=== PATIENT | female | born 1935 | race Caucasian/White ===

== ENCOUNTER → 2017-02-17 | Outpatient (CLI) | payer OTHER ==
[~2017-02-17] MED LIST: ASPI81TA28 PO; CALC600C9 PO; CEPH500C2 PO; CLTP PO; DOCU-94 PO; FLUT0.15 NAE; FRS/40 PO; GLIP5TAB11 PO; LACTTAB7 PO; LISI-729 PO; LOSA1TAB PO; LPR25 PO; MISCCAP80 PO; MUPI2OIN9 TOP; PRLSR20 PO; SIMV40TA2 PO; SULF800T23 PO; TRIM100T PO; VSC/10 PO; [UNRECOGNIZED DRUG - CODE] PO
== END | disposition home or self-care (01) ==
LOC: C.LABSPEC 17:06
PROVIDERS: ATTEND Nurse Practitioner Family
DX: N39.0 Urinary tract infection, site not specified (principal)

== ENCOUNTER 2017-04-21 15:44 | Emergency (ER) | payer OTHER ==
[~2017-04-21 15:44] MED LIST changes: -CALC600C9 PO; -CEPH500C2 PO; -DOCU-94 PO; -FLUT0.15 NAE; -GLIP5TAB11 PO; -LOSA1TAB PO; -LPR25 PO; -MUPI2OIN9 TOP; -SULF800T23 PO; -VSC/10 PO
[2017-04-21 15:46] VITALS: Ht 165.1 cm
[2017-04-21] MEDS ORDERED: VSC/10 PO (15:58)
[2017-04-21] MEDS ORDERED: GLIP5TAB11 PO (16:00)
[2017-04-21] MEDS ORDERED: LPR25 PO (16:04)
--- NOTE | 2017-04-21 16:14 | EMERGENCY ROOM VISIT NOTE ---
History Report prepared by Soni: Juan Sheehan Under the Supervision of: Dr. Aston Morales D.O. First contact with patient: 15:51 Chief Complaint: EDEMA TO EXTREMITY Stated Complaint: SWELLING TO LEFT FOOT History of Present Illness The patient is a 81 year old female who presents to the Emergency Room with complaints of worsening left foot swelling beginning yesterday. She is followed up for her wounds by the wound clinic. She denies any foot pain, or drainage. The patient denies any fevers. She has a history of diabetes, and high blood pressure. She is on Coumadin. The patient noticed a small wound forming on her left foot yesterday as well. Source of History: patient Onset: Yesterday Position: foot (left) Quality: other (swelling) Timing: worsening Associated Symptoms: No fevers Note: The patient denies any foot pain or draining. Review of Systems See HPI for pertinent positives & negatives. A total of 10 systems reviewed and were otherwise negative. Past Medical & Surgical Medical Problems: (1) Benign hypertension (2) Chronic congestive heart failure (3) Coronary artery disease (4) diabetes (5) Hyperlipidemia (6) Hysterectomy Family History Cancer Diabetes mellitus Heart disease Hypertension Social History Smoking Status: Never Smoker Drug Use: none Marital Status: Housing Status: lives alone Occupation Status: retired Current/Historical Medications Scheduled Aspirin (Aspirin Ec), 81 MG PO QAM Calcium Carbonate-Vitamin D (Calcium/Vitamin D 600-200 mg-Unit), 2 CAP PO DAILY Cephalexin Monohydrate (Keflex), 500 MG PO QID Docusate Sodium (Colace), 100 MG PO BID Glipizide (Glucotrol), 5 MG PO BID Losartan Potassium (Cozaar), 12.5 MG PO DAILY Metoprolol Tartrate (Lopressor), 25 MG PO BID Mupirocin (Bactroban), 1 APPLN TOP TID Omeprazole (Prilosec), 20 MG PO QAM Simvastatin (Zocor), 40 MG PO HS Solifenacin Succinate (Vesicare), 10 MG PO DAILY Sulfa/Trimethoprim (Bactrim Ds 800MG/160MG), 1 TAB PO BID Trimethoprim (Proloprim), 100 MG PO DAILY Scheduled PRN Fluticasone Propionate (Nasal) (Flonase Allergy Relief), 2 SPRAYS NANCI DAILY PRN for Allergy Symptoms Furosemide (Lasix), 20 MG PO DAILY PRN for Fluid Accumulation/Weight Gain Allergies Coded Allergies: No Known Allergies (Unverified , 09/05/15) Physical Exam Vital Signs Date Time Temp Pulse Resp B/P (MAP) Pulse Ox O2 Delivery O2 Flow Rate FiO2 04/21/17 18:52 66 20 159/96 95 Room Air 04/21/17 17:32 71 18 175/77 97 04/21/17 15:46 68 16 148/78 96 Room Air Physical Exam GENERAL: Patient is awake, alert, and in no acute distress. Patient is resting comfortably and showing no signs of anxiety EYES: The conjunctivae are clear. The pupils are round and reactive. EARS, NOSE, MOUTH AND THROAT: The nose is without any evidence of any deformity. Mucous membranes are moist tongue is midline NECK: The neck is nontender and supple. RESPIRATORY: Normal respiratory effort is noted there is no evidence of wheezing rhonchi or rales CARDIOVASCULAR: Regular rate and rhythm noted there no murmurs rubs or gallops normal S1 normal S2 GASTROINTESTINAL: The abdomen is soft. Bowel sounds are present in all quadrants. Abdomen is nontender PELVIS: The Pelvis is stable. No tenderness to palpation is noted. BACK: No midline tenderness or or step-off noted range of motion in flexion extension as well as rotation no signs of muscle spasm noted MUSCULOSKELETAL/EXTREMITIES: There is no evidence of gross deformity full range of motion is noted in the hips and shoulders SKIN: There are no petechiae, pallor or cyanosis noted. Lesion on the lateral aspect of the dorsum of the left foot. Center is necrotic. Surrounding erythema approximately 3 cm in diameter. NEUROLOGIC: Patient is awake alert and oriented x3 strength is symmetric patellar reflexes are 2+ bilaterally Medical Decision & Procedures ER Provider Diagnostic Interpretation: X-ray results as stated below per interpretation by me and the radiologist. LEFT FOOT MIN 3 VIEWS ROUTINE DISCUSSION: No acute fractures are visualized. The bones are osteopenic. There is calcaneal spurring. There is mild soft tissue edema. No destructive lesions are visualized. IMPRESSION: No acute fractures identified. Osteopenia. Calcaneal spurring. Electronically signed by: Vasu Colón M.D. Laboratory Results 04/21/17 16:05 Red Blood Count 4.46, Mean Corpuscular Volume 88.6, Mean Corpuscular Hemoglobin 29.6, Mean Corpuscular Hemoglobin Concent 33.4, Mean Platelet Volume 10.0, Neutrophils (%) (Auto) 48.7, Lymphocytes (%) (Auto) 40.2, Monocytes (%) (Auto) 8.5, Eosinophils (%) (Auto) 1.8, Basophils (%) (Auto) 0.4, Neutrophils # (Auto) 5.56, Lymphocytes # (Auto) 4.59, Monocytes # (Auto) 0.97, Eosinophils # (Auto) 0.21, Basophils # (Auto) 0.05 04/21/17 16:05 Test 04/21/17 16:05 04/21/17 17:26 White Blood Count 11.42 K/uL (4.8-10.8) Red Blood Count 4.46 M/uL (4.2-5.4) Hemoglobin 13.2 g/dL (12.0-16.0) Hematocrit 39.5 % (37-47) Mean Corpuscular Volume 88.6 fL (80-100) Mean Corpuscular Hemoglobin 29.6 pg (25-34) Mean Corpuscular Hemoglobin Concent 33.4 g/dl (32-36) Platelet Count 122 K/uL (130-400) Mean Platelet Volume 10.0 fL (7.4-10.4) Neutrophils (%) (Auto) 48.7 % Lymphocytes (%) (Auto) 40.2 % Monocytes (%) (Auto) 8.5 % Eosinophils (%) (Auto) 1.8 % Basophils (%) (Auto) 0.4 % Neutrophils # (Auto) 5.56 K/uL (1.4-6.5) Lymphocytes # (Auto) 4.59 K/uL (1.2-3.4) Monocytes # (Auto) 0.97 K/uL (0.11-0.59) Eosinophils # (Auto) 0.21 K/uL (0-0.5) Basophils # (Auto) 0.05 K/uL (0-0.2) RDW Standard Deviation 46.4 fL (36.4-46.3) RDW Coefficient of Variation 14.2 % (11.5-14.5) Immature Granulocyte % (Auto) 0.4 % Immature Granulocyte # (Auto) 0.04 K/uL (0.00-0.02) Erythrocyte Sedimentation Rate 21 mm/hr (0-21) Prothrombin Time 10.4 SECONDS (9.0-12.0) Prothromb Time International Ratio 1.0 (0.9-1.1) Activated Partial Thromboplast Time 27.1 SECONDS (21.0-31.0) Partial Thromboplastin Ratio 1.0 Anion Gap 9.0 mmol/L (3-11) Estimated GFR () 62.7 Estimated GFR (Non- 54.1 BUN/Creatinine Ratio 24.0 (10-20) Calcium Level 8.8 mg/dl (8.5-10.1) Total Bilirubin 0.7 mg/dl (0.2-1) Direct Bilirubin 0.1 mg/dl (0-0.2) Aspartate Amino Transf (AST/SGOT) 15 U/L (15-37) Alanine Aminotransferase (ALT/SGPT) 17 U/L (12-78) Alkaline Phosphatase 96 U/L (45-117) C-Reactive Protein 0.61 mg/dl (0-0.29) Total Protein 7.8 gm/dl (6.4-8.2) Albumin 3.6 gm/dl (3.4-5.0) Lipase 93 U/L (73-393) Lyme Disease IgG Antibody NEG (NEG) Lyme Disease IgM Antibody NEG (NEG) Laboratory results per my review. Medications Administered Medications (Trade) Dose Ordered Sig/Aziza Route Start Time Stop Time Status Last Admin Dose Admin Ceftriaxone Sodium (Rocephin Inj) 1 gm NOW STAT IV 04/21/17 16:49 04/21/17 16:50 DC 04/21/17 17:31 1 GM ED Course 1554: The patient was evaluated in room B9. A complete history and physical examination were performed. 164: Ordered Rocephin Inj 1 gm IV. 0: Upon reevaluation, the patient is resting comfortably. I discussed the results and treatment plan with her. She verbalized agreement of the treatment plan. The patient was discharged home. Medical Decision Differential diagnosis: Etiologies such as cellulitis, abscess, MRSA infection, DVT, necrotizing fasciitis, dermatitis, drug eruption, as well as others were entertained. Blood pressure screening: Patient was found to have an elevated blood pressure and was referred to their primary doctor for recheck and further treatment. Medication Reconciliation: I attest that I have personally reviewed the patient' s current medications list. The patient is an 81-year-old female who presented to the emergency department for evaluation of left foot pain and swelling. The patient had an area of erythema as well as central necrosis on her left foot which she noticed recently. The area had the appearance of an infection. There is no definite foreign body noted on x-ray. The patient was treated with IV antibiotics in the emergency department. I discussed the patient's laboratory and radiographic studies with her. She was encouraged to follow-up with her primary care physician this week for reevaluation. She also has had problems with infections in her extremities in the past and was seen at the wound care center. She was encouraged to follow-up with wound care center symptoms do not improve but also return to the emergency apartment immediately if symptoms change worsen or the need arises. Impression Primary Impression: Cellulitis Scribe Attestation The scribe's documentation has been prepared under my direction and personally reviewed by me in its entirety. I confirm that the note above accurately reflects all work, treatment, procedures, and medical decision making performed by me. Departure Information Dispostion Home / Self-Care Prescriptions Mupirocin (BACTROBAN) 2 % Oin 1 APPLN TOP TID, #60 GM Prov: Aston Morales, DO 04/21/17 Cephalexin Monohydrate (KEFLEX) 500 Mg Cap 500 MG PO QID, #40 CAP Prov: Aston Morales, DO 04/21/17 Sulfa/Trimethoprim (Bactrim Ds 800MG/160MG) Tab 1 TAB PO BID, #20 TAB Prov: Aston Morales, DO 04/21/17 Referrals No Doctor, Assigned (PCP) Forms HOME CARE DOCUMENTATION FORM, IMPORTANT VISIT INFORMATION, WORK / SCHOOL INSTRUCTIONS Patient Instructions Cellulitis [place], [facility] Additional Instructions Follow-up with your primary care physician this week for reevaluation. If symptoms are not improving you may require a referral to the wound care center. Continue all medications as prescribed. Problem Qualifiers Primary Impression: Cellulitis Site of cellulitis: extremity Site of cellulitis of extremity: lower extremity Laterality: left Qualified Codes: L03.116 - Cellulitis of left lower limb
[2017-04-21 16:17] LABS: BASO % 0.4 %; BASO ABS # 0.05 K/uL (0-0.2); COMPLETE YES; EOS % 1.8 %; HEMATOCRIT 39.5 % (37-47); IG% 0.4 %; LYMPH % 40.2 %; LYMPH ABS # 4.59 K/uL (1.2-3.4); MEAN CELL VOLUME 88.6 fL (80-100); MEAN CORPUSCULAR HEMOGLOBIN 29.6 pg (25-34); MEAN CORPUSCULAR HGB CONC 33.4 g/dl (32-36); MONO % 8.5 %; NEUT % 48.7 %; PLATELET COUNT 122 K/uL (130-400); RED BLOOD COUNT 4.46 M/uL (4.2-5.4); WHITE BLOOD COUNT 11.42 K/uL (4.8-10.8)
[2017-04-21 16:30] LABS: PROTHROMBIN TIME (PATIENT) 10.4 SECONDS (9.0-12.0)
[2017-04-21] MEDS ORDERED: LOSA1TAB PO (16:31)
[2017-04-21] MEDS ORDERED: CALC600C9 PO (16:31)
--- NOTE | 2017-04-21 16:34 | DIAGNOSTIC IMAGING REPORT ---
LEFT FOOT MIN 3 VIEWS ROUTINE CLINICAL HISTORY: Swelling and erythema COMPARISON: None. DISCUSSION: No acute fractures are visualized. The bones are osteopenic. There is calcaneal spurring. There is mild soft tissue edema. No destructive lesions are visualized. IMPRESSION: No acute fractures identified. Osteopenia. Calcaneal spurring. Electronically signed by: Vasu Colón M.D. 04/21/2017 4:33 PM Dictated Date/Time: 04/21/2017 4:29 PM
[2017-04-21 16:42] LABS: ALT/SGPT 17 U/L (12-78); AST/SGOT 15 U/L (15-37); BLOOD UREA NITROGEN 24 mg/dl (7-18); C-REACTIVE PROTEIN 0.61 mg/dl (0-0.29); CALCIUM 8.8 mg/dl (8.5-10.1); CARBON DIOXIDE 25 mmol/L (21-32); CHLORIDE 107 mmol/L (98-107); CREATININE 0.98 mg/dl (0.60-1.20); GLUCOSE 160 mg/dl (70-99); POTASSIUM 4.5 mmol/L (3.5-5.1); SODIUM 141 mmol/L (136-145)
[2017-04-21 16:43] LABS: ALKALINE PHOSPHATASE 96 U/L (45-117)
[2017-04-21] MEDS ORDERED: CEFTRIAXONE SOD INJ 1 GM ADDVIAL IV STA (16:49)
[2017-04-21] MEDS ORDERED: DOCU-94 PO (17:10)
[2017-04-21] MEDS ORDERED: FLUT0.15 NAE (17:10)
[2017-04-21 18:35] LABS: LYME DISEASE AB IGG NEG (NEG); LYME DISEASE AB IGM NEG (NEG)
[2017-04-21] MEDS ORDERED: SULF800T23 PO (18:37)
[2017-04-21] MEDS ORDERED: MUPI2OIN9 TOP (18:37)
[2017-04-21] MEDS ORDERED: CEPH500C2 PO (18:37)
[2017-04-21 18:52] VITALS: BP 159/96; PULSE 66; O2SAT 95
== END 2017-04-21 18:53 | disposition home or self-care (01) ==
LOC: C.EDB 15:45
DX: L03.116 Cellulitis of left lower limb (principal); E11.9 Type 2 diabetes mellitus without complications; I10 Essential (primary) hypertension; I50.9 Heart failure, unspecified; I25.10 Atherosclerotic heart disease of native coronary artery without angina pectoris; E78.5 Hyperlipidemia, unspecified; Z80.9 Family history of malignant neoplasm, unspecified; Z83.3 Family history of diabetes mellitus; Z82.49 Family history of ischemic heart disease and other diseases of the circulatory system; Z79.01 Long term (current) use of anticoagulants; Z79.82 Long term (current) use of aspirin; Z79.899 Other long term (current) drug therapy

== ENCOUNTER → 2017-10-07 | Outpatient (CLI) | payer OTHER ==
[~2017-10-07] MED LIST changes: +CALC600C9 PO; +CEPH500C2 PO; -CLTP PO; +DOCU-94 PO; +FLUT0.15 NAE; +GLIP5TAB11 PO; -LACTTAB7 PO; -LISI-729 PO; +LOSA1TAB PO; +LPR25 PO; -MISCCAP80 PO; +MUPI2OIN9 TOP; +SULF800T23 PO; +VSC/10 PO; -[UNRECOGNIZED DRUG - CODE] PO
== END | disposition home or self-care (01) ==
LOC: C.LABSPEC 16:53
PROVIDERS: ATTEND Urology
DX: N39.46 Mixed incontinence (principal)

== ENCOUNTER 2019-10-19 23:31 | Inpatient (IN) ==
[2019-10-19 23:49] LABS: Basophils # (auto) 0.02 K/uL (0-0.2); Basophils % (auto) 0.2 %; Eosinophils # (auto) 0.11 K/uL (0-0.5); Hematocrit (blood only) 41.2 % (37-47); Hemoglobin 13.5 g/dL (12.0-16.0); Immature Granulocytes # (auto) 0.02 K/uL (0.00-0.02); Immature Granulocytes % (auto) 0.2 %; Lymphocytes # (auto) 2.56 K/uL (1.2-3.4); Lymphocytes % (auto) 22.9 %; Mean Corpuscular Hemoglobin 29.9 pg (25-34); Mean Corpuscular Hgb Conc 32.8 g/dL (32-36); Mean Corpuscular Volume 91.2 fL (80-100); Mean Platelet Volume 10.2 fL (7.4-10.4); Monocytes # (auto) 0.81 K/uL (0.11-0.59); Monocytes % (auto) 7.3 %; Neutrophils # (auto) 7.64 K/uL (1.4-6.5); Neutrophils % (auto) 68.4 %; Platelet Count 156 K/uL (130-400); RDW Coefficient of Variation 14.9 % (11.5-14.5); RDW Standard Deviation 49.7 fL (36.4-46.3); Red Blood Count 4.52 M/uL (4.2-5.4); White Blood Count 11.16 K/uL (4.8-10.8)
[2019-10-19] MEDS ORDERED: OPTIRAY 320 125ml IV PRN (23:50)
[2019-10-19 23:55] LABS: iSTAT Creatinine 0.7 mg/dl (0.6-1.3); iSTAT Hemoglobin 14.3 g/dl (12.0-16.0); iSTAT Ionized Calcium 1.15 mmol/l (1.12-1.32); iSTAT Potassium 4.2 mEq/L (3.3-5.0)
[2019-10-19] MEDS ORDERED: TPA for Stroke IV STA (23:58)
[2019-10-19 23:59] LABS: INR 1.2 (0.9-1.1); Partial Thromboplastin Time 26.3 Seconds (21.0-31.0); Prothrombin Time 11.8 Seconds (9.0-12.0)
[2019-10-20] MEDS ORDERED: METOPROLOL TARTRATE 1 MG/ML VIAL IV STA ×3 (00:01→03:56)
[2019-10-20 00:08] LABS: Alanine Aminotransferase 17 U/L (12-78); Albumin Level 3.9 gm/dl (3.4-5.0); Aspartate Aminotransferase 23 U/L (15-37); BUN Creatinine Ratio 14.4 (10-20); Blood Urea Nitrogen 14 mg/dl (7-18); Calcium 9.8 mg/dl (8.5-10.1); Carbon Dioxide 23 mmol/L (21-32); Chloride 106 mmol/L (98-107); Creatinine Clr Calc Pharmacy 53.3 ml/min; Est GFR (African American) 64.6; Est GFR (Non-African American) 55.7; Glucose 182 mg/dl (70-99); Magnesium 2.1 mg/dl (1.8-2.4); Potassium 4.2 mmol/L (3.5-5.1); Sodium 138 mmol/L (136-145)
[2019-10-20] MEDS ORDERED: Alteplase Bolus 9 MG in SYRINGE 0 ML IV ONE (00:09)
[2019-10-20] MEDS ORDERED: ALTEPLASE, RECOMBINANT 81 MG in EMPTY BAG 0 ML IV ONE (00:10)
[2019-10-20] MEDS ORDERED: PRIMARY PLUMSET, PE LINED TUBING, 113 IN, NON-DEHP (2260-0500) IV ONE (00:10)
[2019-10-20 00:13] LABS: Albumin Globulin Ratio 0.9 (0.9-2); Alkaline Phosphatase 74 U/L (45-117); Bilirubin,Total 1.3 mg/dl (0.2-1); Globulin 4.2 gm/dl (2.5-4.0); Total Protein 8.1 gm/dl (6.4-8.2); Troponin I < 0.015 ng/ml (0-0.045)
--- NOTE | 2019-10-20 02:16 | History & Physical Report ---
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 Patient admitted to the ICU under the stroke status post TPA within 24 hours protocol. Immediately post administration, patient was not noted to have any significant improvement, and continued with right gaze preference, and inability to move left side of body. NPO Consult neurology. Consult director corporate security. Overall poor prognosis Present on Admission?: Yes (2) Stroke (cerebrum): As noted above, involving right MCA M1 subdivision, with significant left- sided deficit Present on Admission?: Yes (3) Paroxysmal A-fib: Patient was initially noted by ED staff to be in paroxysmal A. fib with RVR, however, returned more rate control by time of transfer. Not an anticoagulation candidate due to use of TPA. Lopressor IV as needed for rate control. Present on Admission?: Yes (4) Type 2 diabetes mellitus: Holding glipizide. Placed on Accu-Cheks before meals and at bedtime with NovoLog coverage for scale Present on Admission?: Yes (5) Hyperlipidemia: Check a fasting lipid panel, holding any statin until patient passes speech studies Present on Admission?: Yes (6) Recurrent urinary tract infection: Previous infections including ESBL E. coli, and enterococcus. Urinalysis looks infected. Follow urine culture sensitivity. Cover empirically with vancomycin and Zosyn IV. Present on Admission?: Yes (7) Infection due to ESBL-producing Escherichia coli: Antibiotic coverage as noted until culture and sensitivities return Present on Admission?: Yes (8) Ambulatory dysfunction: Patient was noted to have ambulatory dysfunction prior to acute onset of CVA. Present on Admission?: Yes (9) Admitted to intensive care unit: As noted above, with consult director corporate security team Present on Admission?: Yes (10) Status post aortic valve replacement: Echocardiogram to assess for any associated SBE Present on Admission?: Yes History of Present Illness Chief Complaint: The patient presents to the emergency department from [facility], with strokelike symptoms. Primary Care Provider: [facility] The patient is an 84-year-old female resident of [facility], who was found to be less responsive, and decreased ability to move the left side of her body when checked on by half-way staff earlier this evening. Her last known well time was 8:00 PM. She was placed into the stroke alert protocol upon arrival to the ED. CT the head showed old ischemia but no acute findings. CTA head and neck showed a right MCA M1 occlusion. Dr. Drew from the emergency department, spoke with Dr. Lundberg from neurology, who recommended patient receive TPA, and TPA was administered completely while in the ED. Patient was noted to have no significant improvement upon immediate completion of the TPA, and also had no ill effects. The patient was then admitted to the ICU for close follow-up. Allergies Allergy/AdvReac Type Severity Reaction Status Date / Time No Known Allergies Allergy Unverified 10/20/19 00:15 Home Medications Home Medications Medication Instructions Recorded Confirmed Type amoxicillin 2,000 mg PO DIRECTED 09/27/18 10/20/19 History glipizide 5 mg PO BID 09/27/18 10/19/19 History losartan 12.5 mg PO DAILY 09/27/18 10/19/19 History metoprolol tartrate 25 mg PO BID 09/27/18 10/20/19 History polyethylene glycol 3350 [Miralax] 17 g PO DAILY PRN 10/19/19 10/19/19 History Cavilon Af 1 applic TOPICAL AMHS 10/20/19 10/20/19 History acetaminophen 650 mg PO DAILY 10/20/19 10/20/19 History acetaminophen 650 mg PO Q6H PRN 10/20/19 10/20/19 History acetaminophen 650 mg PO Q6H PRN MDD 3g/24hr 10/20/19 10/20/19 History wtszzgcx-skbelefjuks-opjuw, wh 1 applic TOPICAL HS 10/20/19 10/20/19 History [Moisturizing Cream] lanolin fiqppih-ki-x.pet-ceres 1 applic TOPICAL AMPM 10/20/19 10/20/19 History [Eucerin] menthol-zinc oxide [Calmoseptine] 1 applic TOPICAL QS 10/20/19 10/20/19 History zpdjryvfescq-Nm-ryvf-minerals 1 tab PO DAILY 10/20/19 10/20/19 History [Multiple Vitamin, Womens] omeprazole 20 mg PO DAILY 10/20/19 10/20/19 History ondansetron HCl 4 mg PO Q8 PRN 10/20/19 10/20/19 History Past Med/Surg History Medical History (Updated 10/20/19 @ 03:45 by MADDISON Price) Hyperlipidemia (Chronic) Hypertension (Chronic) Osteoporosis (Chronic) Paroxysmal A-fib (Chronic) Recurrent urinary tract infection (Chronic) Rheumatic valvular disease (Chronic) Stroke (cerebrum) Type 2 diabetes mellitus (Chronic) Surgical History Status post aortic valve replacement (Chronic) Family History Other Family history unknown Social History Preferred Language: Greenlandic Communication Ability: Effective Visual Impairment: No Limitations Hearing Ability: Normal Switchman Required: No Beliefs That Will Affect Care: None Current Living Situation: Assisted Other Information That Helps Us Care for You: No Feels Safe at Home: Yes Safety Concerns: Feels Safe At This Time Smoking Status: Never smoker Hx Alcohol Use: No Hx Substance Use: No Review of Systems Review of Systems: Unobtainable due to cognitive status and Unobtainable due to reduced consciousness Physical Exam Physical Exam: The patient is awake, with gaze deviation to the right, lying in bed and in no acute distress. HEENT--PERRL, EOMI, mucous membranes and oropharynx dry. Neck--supple. No JVD. No bruits. Thyroid normal, trachea midline, no adenopathy. Heart--tachycardic and regular. Lungs--clear bilaterally, no respiratory distress, no accessory muscle use. Abdomen--normal bowel sounds and soft. Nontender. Nondistended. Extremities--no cyanosis or clubbing. No edema. There are good distal pulses b/l. Dermatologic--normal skin turgor, normal color, no abnormal lymph nodes, no rash. Neurologic--gaze deviation to the right. Patient unable to move left arm and left leg. Right leg 4+ out of 5, right upper extremity 4+ out of 5 Rheumatologic--limited exam due to neurologic injury Psychiatric--patient able to respond, with flat affect. Results & Data Vital Signs (Past 12 Hours) Vital Signs Pulse Resp BP Pulse Ox 10/20/19 02:01 110 H 108/80 94 10/20/19 02:00 103 H 94 10/20/19 01:50 122 H 94 10/20/19 01:45 104 H 131/93 93 10/20/19 01:40 110 H 131/93 95 10/20/19 01:31 99 H 122/89 93 10/20/19 01:30 95 H 122/89 92 10/20/19 01:20 109 H 93 10/20/19 01:17 109 H 93 10/20/19 01:16 98 H 112/75 96 10/20/19 01:10 100 H 94 10/20/19 01:01 99 H 123/87 94 10/20/19 01:00 111 H 123/87 92 10/20/19 00:50 97 H 93 10/20/19 00:47 105 H 94 10/20/19 00:46 114 H 140/88 94 10/20/19 00:40 101 H 95 10/20/19 00:32 101 H 93 10/20/19 00:31 99 H 126/84 93 10/20/19 00:30 102 H 93 10/20/19 00:20 117 H 94 10/20/19 00:16 115 H 129/85 95 10/20/19 00:10 104 H 93 10/20/19 00:07 110 H 141/72 H 94 10/20/19 00:04 121 H 152/117 H 96 10/20/19 00:03 115 H 169/100 H 96 10/20/19 00:00 127 H 96 10/19/19 23:59 123 H 96 10/19/19 23:58 106 H 178/145 H 96 10/19/19 23:57 102 H 20 95 Laboratory Results Laboratory Results WBC 11.16 K/uL (4.8-10.8) H 10/19/19 23:38 RBC 4.52 M/uL (4.2-5.4) 10/19/19 23:38 Hgb 13.5 g/dL (12.0-16.0) 10/19/19 23:38 POC Hgb 14.3 g/dl (12.0-16.0) 10/19/19 23:39 Hct 41.2 % (37-47) 10/19/19 23:38 POC Hct 42 % (37-47) 10/19/19 23:39 MCV 91.2 fL (80-100) 10/19/19 23:38 MCH 29.9 pg (25-34) 10/19/19 23:38 MCHC 32.8 g/dL (32-36) 10/19/19 23:38 RDW Std Deviation 49.7 fL (36.4-46.3) H 10/19/19 23:38 RDW Coeff of Stanford 14.9 % (11.5-14.5) H 10/19/19 23:38 Plt Count 156 K/uL (130-400) 10/19/19 23:38 MPV 10.2 fL (7.4-10.4) 10/19/19 23:38 Immature Gran % (Auto) 0.2 % 10/19/19 23:38 Neut % (Auto) 68.4 % 10/19/19 23:38 Lymph % (Auto) 22.9 % 10/19/19 23:38 Bradford % (Auto) 7.3 % 10/19/19 23:38 Eos % (Auto) 1.0 % 10/19/19 23:38 Baso % (Auto) 0.2 % 10/19/19 23:38 Immature Gran # (Auto) 0.02 K/uL (0.00-0.02) 10/19/19 23:38 Neut # (Auto) 7.64 K/uL (1.4-6.5) H 10/19/19 23:38 Lymph # (Auto) 2.56 K/uL (1.2-3.4) 10/19/19 23:38 Bradford # (Auto) 0.81 K/uL (0.11-0.59) H 10/19/19 23:38 Eos # (Auto) 0.11 K/uL (0-0.5) 10/19/19 23:38 Baso # (Auto) 0.02 K/uL (0-0.2) 10/19/19 23:38 PT 11.8 Seconds (9.0-12.0) 10/19/19 23:38 INR 1.2 (0.9-1.1) H 10/19/19 23:38 APTT 26.3 Seconds (21.0-31.0) 10/19/19 23:38 PTT Ratio 1.0 10/19/19 23:38 POC Sodium 140 mEq/L (135-144) 10/19/19 23:39 Sodium 138 mmol/L (136-145) 10/19/19 23:38 POC Potassium 4.2 mEq/L (3.3-5.0) 10/19/19 23:39 Potassium 4.2 mmol/L (3.5-5.1) 10/19/19 23:38 POC Chloride 105 mEq/L (101-112) 10/19/19 23:39 Chloride 106 mmol/L (98-107) 10/19/19 23:38 Carbon Dioxide 23 mmol/L (21-32) 10/19/19 23:38 POC Total CO2 23 mEq/l (24-31) L 10/19/19 23:39 Anion Gap 9.0 (3-11) 10/19/19 23:38 POC Anion Gap 16.0 mmol/L (16-25) 10/19/19 23:39 POC BUN 13 mg/dl (7-18) 10/19/19 23:39 BUN 14 mg/dl (7-18) 10/19/19 23:38 Creatinine 0.94 mg/dl (0.6-1.2) 10/19/19 23:38 POC Creatinine 0.7 mg/dl (0.6-1.3) 10/19/19 23:39 Est Cr Clr Drug Dosing 53.3 ml/min 10/19/19 23:38 Est GFR ( Amer) 64.6 10/19/19 23:38 Est GFR (Non-Af Amer) 55.7 10/19/19 23:38 BUN/Creatinine Ratio 14.4 (10-20) 10/19/19 23:38 Glucose 182 mg/dl (70-99) H 10/19/19 23:38 POC Glucose 168 (70-99) H 10/19/19 23:58 POC Glucose (other) 185 mg/dl (70-99) H 10/19/19 23:39 Calcium 9.8 mg/dl (8.5-10.1) 10/19/19 23:38 POC Ioniz Calcium Julio Cesar 1.15 mmol/l (1.12-1.32) 10/19/19 23:39 Magnesium 2.1 mg/dl (1.8-2.4) 10/19/19 23:38 Total Bilirubin 1.3 mg/dl (0.2-1) H 10/19/19 23:38 AST 23 U/L (15-37) 10/19/19 23:38 ALT 17 U/L (12-78) 10/19/19 23:38 Alkaline Phosphatase 74 U/L (45-117) 10/19/19 23:38 Troponin I < 0.015 ng/ml (0-0.045) 10/20/19 03:20 Total Protein 8.1 gm/dl (6.4-8.2) 10/19/19 23:38 Albumin 3.9 gm/dl (3.4-5.0) 10/19/19 23:38 Globulin 4.2 gm/dl (2.5-4.0) H 10/19/19 23:38 Albumin/Globulin Ratio 0.9 (0.9-2) 10/19/19 23:38 Triglycerides 68 mg/dl (0-150) 10/20/19 03:20 Cholesterol 81 mg/dl (0-200) 10/20/19 03:20 LDL Cholesterol, Calc 20 mg/dl 10/20/19 03:20 VLDL Cholesterol, Calc 14 mg/dl 10/20/19 03:20 HDL Cholesterol 47 mg/dl 10/20/19 03:20 Cholesterol/HDL Ratio 2 10/20/19 03:20 Procalcitonin < 0.05 ng/ml (0-0.5) 10/20/19 03:20 TSH 1.790 uIu/ml (0.300-4.500) 10/20/19 03:20 Nasal Screen MRSA (PCR) Positive (Negative) A 10/20/19 02:30 Blood Type O Positive 10/19/19 23:38 Antibody Screen NEGATIVE 10/19/19 23:38 Diagnostic Findings [facility] Patient: JANINA RAMSEY (Female) : 35 test: [id number] Status: ER Date: 10/19/19 23:57 Room #: History: LEFT SIDE WEAKNESS Slices: 67 Priors: Tech: Ramesh Quesada @ [phone] Exams: CT HEAD Accession Numbers: [id number] Preliminary Findings Only See Final Report For Complete Findings CT HEAD: Impression: No intracranial hemorrhage. Global parenchymal volume loss with extensive chronic microvascular ischemic changes which degrades evaluation for early CT change of acute infarction. No mass lesion or mass effect. Radiologist: Ashok Jaimes MD Study ready at 23:59 and initial results transmitted at 00:03 Communications: Clear Time Type Notes 10/20/19 00:05 Call Doctor Regarding Stroke, called Dr. Drew on 10/20 00:04 (-05:00) *This report constitutes a preliminary interpretation only. Non-acute findings felt to be unrelated to the clinical presentation may not be discussed in this report. The study will be interpreted and a final report will be generated by the local Radiologist the following shift. To reach the hospital radiology department call [phone]. If a discrepancy is found between the preliminary and final interpretations of this study, please notify us via our Client Portal at [email or web address], under [email or web address] Exams.You can also fax this report with a description of the discrepancy, or include the final report, to our daytime fax number [phone].If faxing, please indicate the severity of discrepancy using one of the following categories: [ ] 1 - Agree/Informational [ ] 2 - Unlikely to Affect Management [ ] 3 - Possible Eventual Change of Management [ ] 4 - Probable Immediate Change of Management For all other patient related information, please fax us at [phone]. [id number] [facility] Patient: JANINA RAMSEY (Female) : 35 test: [id number] Status: ER Date: 10/19/19 23:58 Room #: History: LEFT SIDE WEAKNESS Slices: 505 Priors: Tech: Ramesh Quesada @ [phone] Exams: CTA HEAD Contrast: IV Amt: 117 ML OPTIRAY 320 Accession Numbers: [id number] Preliminary Findings Only See Final Report For Complete Findings CTA HEAD: Impression: Thrombus in the M1 segment of the right middle cerebral artery measuring approximately 9 mm. 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 The left vertebral artery and basilar artery are widely patent. Radiologist: Ashok Jaimse MD Study ready at 23:59 and initial results transmitted at 00:07 Communications: Clear Time Type Notes 10/20/19 00:08 Call Doctor Regarding Critical stenosis/arterial occlusion, called Dr. Drew on 10/20 00:08 (-05:00) *This report constitutes a preliminary interpretation only. Non-acute findings felt to be unrelated to the clinical presentation may not be discussed in this report. The study will be interpreted and a final report will be generated by the local Radiologist the following shift. To reach the hospital radiology department call [phone]. If a discrepancy is found between the preliminary and final interpretations of this study, please notify us via our Client Portal at [email or web address], under [email or web address] [email or web address].You can also fax this report with a description of the discrepancy, or include the final report, to our daytime fax number [phone].If faxing, please indicate the severity of discrepancy using one of the following categories: [ ] 1 - Agree/Informational [ ] 2 - Unlikely to Affect Management [ ] 3 - Possible Eventual Change of Management [ ] 4 - Probable Immediate Change of Management For all other patient related information, please fax us at [phone]. [id number] [facility] Patient: JANINA RAMSEY (Female) : 35 test: [id number] Status: ER Date: 10/20/19 00:00 Room #: History: LEFT SIDE WEAKNESS Slices: 629 Priors: Tech: Ramesh Quesada @ [phone] Exams: CTA NECK Contrast: IV Amt: 117 ML OPTIRAY 320 Accession Numbers: [id number] Preliminary Findings Only See Final Report For Complete Findings CTA NECK: Impression: No hemodynamically significant stenosis of the cervical carotid or vertebral arteries. 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 Radiologist: Ashok Jaimes MD Study ready at 00:06 and initial results transmitted at 00:09 Communications: Clear Time Type Notes 10/20/19 00:10 Call Doctor Regarding Stroke, called Dr. Drew on 10/20 00:10 (-05:00) *This report constitutes a preliminary interpretation only. Non-acute findings felt to be unrelated to the clinical presentation may not be discussed in this report. The study will be interpreted and a final report will be generated by the local Radiologist the following shift. To reach the hospital radiology department call [phone]. If a discrepancy is found between the preliminary and final interpretations of this study, please notify us via our Client Portal at [email or web address], under [email or web address] [email or web address].You can also fax this report with a description of the discrepancy, or include the final report, to our daytime fax number [phone].If faxing, please indicate the severity of discrepancy using one of the following categories: [ ] 1 - Agree/Informational [ ] 2 - Unlikely to Affect Management [ ] 3 - Possible Eventual Change of Management [ ] 4 - Probable Immediate Change of Management For all other patient related information, please fax us at [phone]. [id number] Code Status & VTE Plan Code Status Full code VTE Prophylaxis Plan VTE Prophylaxis will be ordered: Yes Critical Care Time Critical Care Time: Yes Total Critical Care Time: 50 Total critical care time was 50 minutes PG Care Time/CCT Total # of Minutes Spent Total Time Spent with Patient: Total time spent is greater than 50% in coordination of care (as documented) at patient's floor/unit and/or counseling patient: Critical Care Time: Yes Total Critical Care Time: 50
[2019-10-20] MEDS ORDERED: NSS + 20MEQ KCL 20 MEQ/1,000 ML BAG IV SCH (02:46)
[2019-10-20] MEDS ORDERED: ICU PROTOCOL FOR HYPERGLYCEMIA PRN (02:46)
[2019-10-20] MEDS ORDERED: PHARMACIST DISCHARGE MED REC CONSULT PRN (02:51)
[2019-10-20] MEDS: NORMOSOL-R 1,000 ML IV SCH ×2 (03:03→15:28)
[2019-10-20] MEDS ORDERED: VANCOMYCIN CONSULT ACTIVE PRN ×2 (03:07)
[2019-10-20] MEDS ORDERED: VANCOMYCIN HCL 2,000 MG in SODIUM CHLORIDE 0.9% 500 ML IV ONE (03:07)
--- NOTE | 2019-10-20 03:11 | Critical Care Consultation ---
Date of Consultation October 20, 2019 Assessment & Plan (1) Admitted to intensive care unit: Reason Critically Ill: 84-year-old female presents from longterm found to have acute stroke, TPA administered and transferred to ICU Neuro - Acute strokeCTA head and neck showed 9 mm thrombus in M1 segment of R MCA and occlusion of V4 segment of right vertebral artery -TPA administered at 10/20 0015 -Initial NIH score of 18, now 16 on arrival to ICU following TPA -Emergency department consulted [facility] urgent neurologist in [place] to consider thrombectomy, did not feel that patient would benefit per conversation with ER physician -Neurology consulted, will follow recommendations -Day 1 TPA protocol -Frequent neuro checks -Speech, PT, OT consulted -Follow-up echo -Follow-up TSH, lipid profile, hemoglobin A1c -Patient to remain in ICU for 24 hours following TPA administration Cardiac - PAFpatient with history however not anticoagulated, currently in A. fib on this admission -Currently controlling right with IV MTP, will use with caution in order to promote permissive hypertension following CVA -May consider amiodarone drip if patient's hemodynamics will not tolerate beta-renetta or diltiazem -Troponin negative -Continue to monitor on telemetry -Goal to rate control with heart rate less than 110 considering possibility of right atrial thrombus source for stroke, will not attempt to convert to sinus at this time HTNholding oral anticoagulations for now, will continue IV beta-renetta as needed History of AVR Respiratory - Currently maintaining oxygen saturations on 2 L nasal cannula CXR appears to be consistent with pulmonary edema GI - N.p.o. for now, failed bedside swallow, follow-up speech swallow study RENAL/LYTES - Creatinine stable, monitor routine BMPs and replete electrolytes as necessary - Foleystrict I's and O's Urinary tract infectionsee ID below ENDO - Diabetes type 2patient on orals for home dose, hemoglobin A1c pending -We will transition to sliding scale -ICU hyperglycemic protocol Follow-up TSH, T4 HEME - H&H stable, monitor routine CBCs ID - Uncomplicated UTIpatient has history of multiple UTIs, history of multidrug- resistant E. coli but negative on last culture -Urine culture pending, UA positive for bacteria +2 -Patient remains afebrile, WBC 11,000, procalcitonin pending -MRSA positive -Started on Ertaenem, ID consulted LINES/IV ACCESS - Peripheral IVs DVT PROPHYLAXIS - SCDs, holding anticoagulation following TPA administration I have personally spent 36 minutes of critical care time in the direct management of this patient. This is a life/limb threatening event. This includes time spent evaluating patient, direct bedside care, chart review, placing orders, interpretation of diagnostic studies, discussion with consultants, patient, and family members, as well as other required patient management activities. This time is exclusive of all separately billable procedures, and teaching time and separate from and in addition to any other critical care service time. Thank you for allowing us to participate in the care of this patient. Please refer to my attending physician's documentation for any further recommendations. (2) Paroxysmal A-fib: (3) Recurrent urinary tract infection: (4) Type 2 diabetes mellitus: (5) Hypertension: (6) Stroke (cerebrum): (7) tPA adm status 24 hr ICT SUPPORT ENGINEER: History of Present Illness Attending Physician: Rolando Hdez MD History of Present Illness Patient is a 84-year-old female with past medical history HTN, DM type II, PAF (non-anticoagulated), AVR 2010 who presented from longterm via EMS with new onset of severe left-sided weakness and neglect and initial NIH of 18. Last known normal was 10/19 2000. Head and neck CTA revealed patient had 9 mm thrombus in the M1 segment of right MCA. TPA was administered at 10/20 0015. Patient was also in A. fib RVR and was given Lopressor IV. Arrangements were made for patient to transfer to [place] for thrombectomy. However the neurologist at [place] reportedly did not feel that the patient would benefit from thrombectomy and did not recommend transfer and decision was made to keep patient here at [facility]. When I saw the patient in the emergency department she was completely flaccid on the left side without sensation. On arrival to the ICU she was beginning to have trace movements in the left upper and lower extremities and had an improved NIH score of 16. Patient is alert and oriented. She is protecting her airway. She displays dysarthria and failed her bedside swallow. She has a right sided gaze and left-sided facial droop and still displays left sided hemineglect and weakness. She currently denies headache, dizziness, nausea or vomiting, changes in vision, shortness of breath, chest pain, palpitations, abdominal pain, nausea or vomiting, diarrhea. She does report reduced sensation on the left side of her body. Patient to remain in ICU for close monitoring management following TPA administration for first 24-hour period. Allergies Allergy/AdvReac Type Severity Reaction Status Date / Time No Known Allergies Allergy Unverified 10/20/19 00:15 Home Medications Home Medications Medication Instructions Recorded Confirmed Type amoxicillin 2,000 mg PO DIRECTED 09/27/18 10/20/19 History glipizide 5 mg PO BID 09/27/18 10/19/19 History losartan 12.5 mg PO DAILY 09/27/18 10/19/19 History metoprolol tartrate 25 mg PO BID 09/27/18 10/20/19 History polyethylene glycol 3350 [Miralax] 17 g PO DAILY PRN 10/19/19 10/19/19 History Cavilon Af 1 applic TOPICAL AMHS 10/20/19 10/20/19 History acetaminophen 650 mg PO DAILY 10/20/19 10/20/19 History acetaminophen 650 mg PO Q6H PRN 10/20/19 10/20/19 History acetaminophen 650 mg PO Q6H PRN MDD 3g/24hr 10/20/19 10/20/19 History gpdeutfy-afczlvjmauc-unovi, wh 1 applic TOPICAL HS 10/20/19 10/20/19 History [Moisturizing Cream] lanolin ykzjyqn-np-z.pet-ceres 1 applic TOPICAL AMPM 10/20/19 10/20/19 History [Eucerin] menthol-zinc oxide [Calmoseptine] 1 applic TOPICAL QS 10/20/19 10/20/19 History vshycqohsprg-Lv-ckza-minerals 1 tab PO DAILY 10/20/19 10/20/19 History [Multiple Vitamin, Womens] omeprazole 20 mg PO DAILY 10/20/19 10/20/19 History ondansetron HCl 4 mg PO Q8 PRN 10/20/19 10/20/19 History Patient History Medical History Hyperlipidemia (Chronic) Hypertension (Chronic) Osteoporosis (Chronic) Paroxysmal A-fib (Chronic) Recurrent urinary tract infection (Chronic) Rheumatic valvular disease (Chronic) Stroke (cerebrum) Type 2 diabetes mellitus (Chronic) Surgical History S/P cataract surgery Status post aortic valve replacement (Chronic) Family History Mother , age 92 Hypertension Father , age 95 No problems noted. 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 Feels Safe at Home: Yes Safety Concerns: Feels Safe At This Time Smoking Status: Never smoker Hx Alcohol Use: No Hx Substance Use: No Review of Systems Review of Systems: All systems reviewed & are unremarkable except as noted in HPI & below Physical Exam Eyes: PERRL; no nystagmus Right-sided deviated gaze ENMT: Left-sided facial droop, dysarthria, impaired swallow Neck: trachea midline, no thyromegaly Respiratory: normal respiratory effort, lungs clear to auscultation Cardiovascular: Rate/Rhythm: + irregularly irregular Vessels: no JVD Extremities: normal capillary refill; no edema Atrial fibrillation on monitor Gastrointestinal (Abdomen): Abdomen obese, nontender, bowel sounds auscultated all 4 quadrants Skin: no rashes, warm and dry Neurologic: Left hemineglect and weakness in left upper and lower extremities, left sided facial droop, dysarthria, right deviated gaze. PERRLA, cough gag and corneal intact, alert and oriented x3 Psychiatric: A+Ox3, euthymic affect Genitourinary: Indwelling Wilder catheter present Results & Data Vital Signs (Past 12 Hours) Vital Signs Temp Pulse Resp BP Pulse Ox 10/20/19 03:00 104 H 96 10/20/19 02:45 107 H 16 109/83 95 10/20/19 02:15 37.0 C 110 H 18 154/97 H 91 10/20/19 02:05 110 H 18 154/92 H 94 10/20/19 02:01 110 H 108/80 94 10/20/19 02:00 103 H 94 10/20/19 01:50 122 H 94 10/20/19 01:45 104 H 131/93 93 10/20/19 01:40 110 H 131/93 95 10/20/19 01:31 99 H 122/89 93 10/20/19 01:30 95 H 122/89 92 10/20/19 01:20 109 H 93 10/20/19 01:17 109 H 93 10/20/19 01:16 98 H 112/75 96 10/20/19 01:10 100 H 94 10/20/19 01:01 99 H 123/87 94 10/20/19 01:00 111 H 123/87 92 10/20/19 00:50 97 H 93 10/20/19 00:47 105 H 94 10/20/19 00:46 114 H 140/88 94 10/20/19 00:40 101 H 95 10/20/19 00:32 101 H 93 10/20/19 00:31 99 H 126/84 93 10/20/19 00:30 102 H 93 10/20/19 00:20 117 H 94 10/20/19 00:16 115 H 129/85 95 10/20/19 00:10 104 H 93 10/20/19 00:07 110 H 141/72 H 94 10/20/19 00:04 121 H 152/117 H 96 10/20/19 00:03 115 H 169/100 H 96 10/20/19 00:00 127 H 96 10/19/19 23:59 123 H 96 10/19/19 23:58 106 H 178/145 H 96 10/19/19 23:57 102 H 20 95 Laboratory Results Laboratory Results - last 24 hr 10/19/19 10/19/19 10/19/19 23:38 23:38 23:38 WBC 11.16 H RBC 4.52 Hgb 13.5 POC Hgb Hct 41.2 POC Hct MCV 91.2 MCH 29.9 MCHC 32.8 RDW Std Deviation 49.7 H RDW Coeff of [place] 14.9 H Plt Count 156 MPV 10.2 Immature Gran % (Auto) 0.2 Neut % (Auto) 68.4 Lymph % (Auto) 22.9 [facility] % (Auto) 7.3 Eos % (Auto) 1.0 Baso % (Auto) 0.2 Immature Gran # (Auto) 0.02 Neut # (Auto) 7.64 H Lymph # (Auto) 2.56 [facility] # (Auto) 0.81 H Eos # (Auto) 0.11 Baso # (Auto) 0.02 PT 11.8 INR 1.2 H APTT 26.3 PTT Ratio 1.0 POC Sodium Sodium 138 POC Potassium Potassium 4.2 POC Chloride Chloride 106 Carbon Dioxide 23 POC Total CO2 Anion Gap 9.0 POC Anion Gap POC BUN BUN 14 Creatinine 0.94 POC Creatinine Est Cr Clr Drug Dosing 53.3 Est GFR ( Amer) 64.6 Est GFR (Non-Af Amer) 55.7 BUN/Creatinine Ratio 14.4 Glucose 182 H POC Glucose POC Glucose (other) Estimat Average Glucose Hemoglobin A1c Calcium 9.8 POC Ioniz Calcium Julio Cesar Phosphorus Magnesium 2.1 Total Bilirubin 1.3 H AST 23 ALT 17 Alkaline Phosphatase 74 Troponin I < 0.015 Total Protein 8.1 Albumin 3.9 Globulin 4.2 H Albumin/Globulin Ratio 0.9 Triglycerides Cholesterol LDL Cholesterol, Calc VLDL Cholesterol, Calc HDL Cholesterol Cholesterol/HDL Ratio Procalcitonin TSH Nasal Screen MRSA (PCR) Blood Type Antibody Screen 10/19/19 10/19/19 10/19/19 23:38 23:39 23:58 WBC RBC Hgb POC Hgb 14.3 Hct POC Hct 42 MCV MCH MCHC RDW Std Deviation RDW Coeff of [place] Plt Count MPV Immature Gran % (Auto) Neut % (Auto) Lymph % (Auto) [facility] % (Auto) Eos % (Auto) Baso % (Auto) Immature Gran # (Auto) Neut # (Auto) Lymph # (Auto) [facility] # (Auto) Eos # (Auto) Baso # (Auto) PT INR APTT PTT Ratio POC Sodium 140 Sodium POC Potassium 4.2 Potassium POC Chloride 105 Chloride Carbon Dioxide POC Total CO2 23 L Anion Gap POC Anion Gap 16.0 POC BUN 13 BUN Creatinine POC Creatinine 0.7 Est Cr Clr Drug Dosing Est GFR ( Amer) Est GFR (Non-Af Amer) BUN/Creatinine Ratio Glucose POC Glucose 168 H POC Glucose (other) 185 H Estimat Average Glucose Hemoglobin A1c Calcium POC Ioniz Calcium Julio Cesar 1.15 Phosphorus Magnesium Total Bilirubin AST ALT Alkaline Phosphatase Troponin I Total Protein Albumin Globulin Albumin/Globulin Ratio Triglycerides Cholesterol LDL Cholesterol, Calc VLDL Cholesterol, Calc HDL Cholesterol Cholesterol/HDL Ratio Procalcitonin TSH Nasal Screen MRSA (PCR) Blood Type O Positive Antibody Screen NEGATIVE 12/09/2810/20/19 10/20/19 02:30 03:20 03:20 WBC RBC Hgb POC Hgb Hct POC Hct MCV MCH MCHC RDW Std Deviation RDW Coeff of [place] Plt Count MPV Immature Gran % (Auto) Neut % (Auto) Lymph % (Auto) [facility] % (Auto) Eos % (Auto) Baso % (Auto) Immature Gran # (Auto) Neut # (Auto) Lymph # (Auto) [facility] # (Auto) Eos # (Auto) Baso # (Auto) PT INR APTT PTT Ratio POC Sodium Sodium POC Potassium Potassium POC Chloride Chloride Carbon Dioxide POC Total CO2 Anion Gap POC Anion Gap POC BUN BUN Creatinine POC Creatinine Est Cr Clr Drug Dosing Est GFR ( Amer) Est GFR (Non-Af Amer) BUN/Creatinine Ratio Glucose POC Glucose POC Glucose (other) Estimat Average Glucose Pending Hemoglobin A1c Pending Calcium POC Ioniz Calcium Julio Cesar Phosphorus Magnesium Total Bilirubin AST ALT Alkaline Phosphatase Troponin I < 0.015 Total Protein Albumin Globulin Albumin/Globulin Ratio Triglycerides 68 Cholesterol 81 LDL Cholesterol, Calc 20 VLDL Cholesterol, Calc 14 HDL Cholesterol 47 Cholesterol/HDL Ratio 2 Procalcitonin TSH 1.790 Nasal Screen MRSA (PCR) Positive A Blood Type Antibody Screen 10/20/19 10/20/19 03:20 05:43 WBC RBC Hgb POC Hgb Hct POC Hct MCV MCH MCHC RDW Std Deviation RDW Coeff of [place] Plt Count MPV Immature Gran % (Auto) Neut % (Auto) Lymph % (Auto) [facility] % (Auto) Eos % (Auto) Baso % (Auto) Immature Gran # (Auto) Neut # (Auto) Lymph # (Auto) [facility] # (Auto) Eos # (Auto) Baso # (Auto) PT INR APTT PTT Ratio POC Sodium Sodium Pending POC Potassium Potassium Pending POC Chloride Chloride Pending Carbon Dioxide Pending POC Total CO2 Anion Gap Pending POC Anion Gap POC BUN BUN Pending Creatinine Pending POC Creatinine Est Cr Clr Drug Dosing Pending Est GFR ( Amer) Pending Est GFR (Non-Af Amer) Pending BUN/Creatinine Ratio Pending Glucose Pending POC Glucose POC Glucose (other) Estimat Average Glucose Hemoglobin A1c Calcium Pending POC Ioniz Calcium Julio Cesar Phosphorus Pending Magnesium Pending Total Bilirubin AST ALT Alkaline Phosphatase Troponin I Total Protein Albumin Globulin Albumin/Globulin Ratio Triglycerides Cholesterol LDL Cholesterol, Calc VLDL Cholesterol, Calc HDL Cholesterol Cholesterol/HDL Ratio Procalcitonin < 0.05 TSH Nasal Screen MRSA (PCR) Blood Type Antibody Screen Medications Administered Home Medications amoxicillin 2,000 mg PO DIRECTED 09/27/18 [History Confirmed 10/20/19] glipizide 5 mg PO BID 09/27/18 [History Confirmed 10/19/19] losartan 12.5 mg PO DAILY 09/27/18 [History Confirmed 10/19/19] metoprolol tartrate 25 mg PO BID 09/27/18 [History Confirmed 10/20/19] polyethylene glycol 3350 [Miralax] 17 g PO DAILY PRN 10/19/19 [History Confirmed 10/19/19] Cavilon Af 1 applic TOPICAL AMHS 10/20/19 [History Confirmed 10/20/19] acetaminophen 650 mg PO DAILY 10/20/19 [History Confirmed 10/20/19] acetaminophen 650 mg PO Q6H PRN 10/20/19 [History Confirmed 10/20/19] acetaminophen 650 mg PO Q6H PRN MDD 3g/24hr 10/20/19 [History Confirmed 10/20/19] xocoqafy-fkwpuxizyow-qasnf, wh [Moisturizing Cream] 1 applic TOPICAL HS 10/20/19 [History Confirmed 10/20/19] lanolin xhvhkeo-nu-v.pet-ceres [Eucerin] 1 applic TOPICAL AMPM 10/20/19 [History Confirmed 10/20/19] menthol-zinc oxide [Calmoseptine] 1 applic TOPICAL QS 10/20/19 [History Confirmed 10/20/19] ujealfksnjcs-Uj-nvjn-minerals [Multiple Vitamin, Womens] 1 tab PO DAILY 10/20/19 [History Confirmed 10/20/19] omeprazole 20 mg PO DAILY 10/20/19 [History Confirmed 10/20/19] ondansetron HCl 4 mg PO Q8 PRN 10/20/19 [History Confirmed 10/20/19] Active Medications Famotidine 20 mg/ Syringe 5 mls @ 2.5 mls/min IV Q12H FREDERICK Stop: 11/19/19 03:59 Last Admin: 10/20/19 04:06 Dose: 2.5 mls/min Documented by: Parenteral Electrolytes (Normosol-R) 1,000 mls @ 80 mls/hr IV .[id number] FREDERICK Stop: 11/19/19 02:59 Last Admin: 10/20/19 03:03 Dose: 80 mls/hr Documented by: Ceftriaxone Sodium 2,000 mg/ (Dextrose) 70 mls @ 100 mls/hr IV DAILY FREDERICK; Protocol Stop: 10/25/19 08:59 Ioversol (Optiray 320 125ml) 117 ml IV ONCE PRN PRN Reason: Interaction Checking Stop: 10/23/19 23:49 Last Admin: 10/19/19 23:51 Dose: 117 ml Documented by: Miscellaneous (Icu Protocol For Hyperglycemia) 1 ea N/A PRN PRN; Protocol PRN Reason: Hyperglycemia Protocol Stop: 10/22/19 02:45 Miscellaneous Information (Pharmacist Discharge Med Rec Consult) 1 ea N/A UD PRN PRN Reason: Consult Stop: 11/19/19 02:50 Miscellaneous Information (Consult) 1 ea N/A UD PRN PRN Reason: Consult Stop: 11/19/19 03:06 Coding Level of Care Code Critical Care 1st 30-74 mins Diagnoses Admitted to intensive care unit Z78.9 Paroxysmal A-fib I48.0 Recurrent urinary tract infection N39.0 Type 2 diabetes mellitus E11.9 Hypertension I10 Stroke (cerebrum) I63.9 tPA adm status 24 hr ICT SUPPORT ENGINEER Z92.82
[2019-10-20] MEDS ORDERED: METOPROLOL TARTRATE 1 MG/ML VIAL IV ONE (04:00)
[2019-10-20] MEDS: FAMOTIDINE 20 MG in SYRINGE 3 ML IV SCH ×2 (04:06→16:21)
[2019-10-20 04:18] LABS: Chol HDL Ratio 2; Cholesterol 81 mg/dl (0-200); HDL Cholesterol 47 mg/dl; LDL Cholesterol Calculated 20 mg/dl; Triglycerides 68 mg/dl (0-150); Troponin I < 0.015 ng/ml (0-0.045); VLDL Cholesterol 14 mg/dl
--- NOTE | 2019-10-20 05:50 | Emergency Department Note ---
Entered by Joelle Barrett acting as a scribe for ED Provider Note Name: JANINA RAMSEY Age: 84 Arrives Via: Ambulance Informant: EMS, [facility] staff CC: Stroke symptoms HPI: [id number] arrives for evaluation of stroke-like symptoms. The patient lives at a local senior care. Her last know well time was 20:00 during routine nursing check. When senior care staff went to recheck on the patient later in the night, she was noted to have significant stroke-like findings. 911 was called and the patient was transported to the hospital. The patient denies any symptoms, but is mildly confused. Per chart review, the patient is on no anticoagulants. Of note patient Afib RVR for EMS and she was given Cardizem 15mg IV with moderate improvement HR en route. ROS: See above HPI. History is limited secondary to patient confusion with her stroke. Past Medical History:Hypertension, diabetes, paroxysmal A fib, dyslipidemia, morbid obesity Past Surgical History:Aortic valve replacement (2010) Family History:unknown Social History:lives at senior care Home Medications:See Below Allergies:none Vitals:BP: 129/85 Pulse: 117 Resp: 20 O2 Sat: 94 T 36.8 Physical Exam: GENERAL: Patient is mildly confused, answering some questions. EYES: No scleral icterus, unremarkable pupils. ENT: Mucous membranes moist, no nasal congestion. NECK: No masses appreciated, nomeningismus, trachea is midline. RESPIRATORY: No dyspnea. Crackles at bases. No wheeze, no rhonchi. CARDIOVASCULAR: Tachycardic and irregular.No murmurs, rubs, gallops appreciated. GASTROINTESTINAL: Abdomen soft, non-tender, no peritonitis.Bowel sounds positive.No masses appreciated. BACK: No midline tenderness, no CVA tenderness EXTREMITIES: Normal motion all extremities, no cyanosis, no edema. NEUROLOGIC: Awake, mildly oriented. Complete weakness and lack of sensation on entire left side. Left facial droop present. Right gaze preference and left sided neglect. Slightly slurred speech. SKIN: No rash, no jaundice, no diaphoresis. ED Course: Prior Medical Record, Triage/Nursing Notes, Medications, Allergies reviewed by Me Vital Signs: reviewed and remarkable for Tachycardia Labs:Reviewed and remarkable for no significant abnormalities Interventions: Saline Lock, Lopressor 5mg IV x 2, TPA bolus/gtt Imaging:[facility] Radiologist interpretation reviewed by me: CT Head old ischemia no acute appreciated, no bleed. CTA Head/Neck M1 right MCA occlusion, vertebral occlusion EKG:Per My Interpretation: Indication Stroke: Afib RVR 130 bpm qtc [address] depressions and inversions. New from 09/29/18 where she was NSR. Consults: 2354: I spoke to Dr. Lundberg, neurologist, who recommended giving the patient tPA. I talked to pharmacy, who said they would immediately mix it and get it to the patient. Reassessments/Times: 2332: Past medical records reviewed. The patient was evaluated in room B01. A complete history and physical exam was performed. 0003: The contact information for the primary contact number does not work. The name is Andra Forman, but the phone is disconnected when called. 0013: The patient is a [facility] patient. We will attempt to contact [facility] for transfer. 0016: I have reviewed the tPA checklist and given the patients severe deficits, we will began tPA at bedside. It is 4 hours and 15 minutes since last known well time, and it is 2 hours and 15 minutes since EMS was called. 0019: I spoke Dr. Singer who agrees with treatment plan, and will arrange trans portation for the patient to [facility]. 0029: Patient is stable with no improvement yet. She appears to agree with transfer to [place]. I ordered Lopressor for the patient. Heart rate is in the 110s. 0040: Dr. Singer states they are not going to do intervention due to the patients history, and Life [facility] has been cancelled. Dr. Ponce has been paged to discuss if he is willing to keep the patient here. 0042: I spoke to Dr. Hdez, who stated that I need to talk to the ICU to accept the patient. 0047: I discussed with Gumaro, the ICU TIANNA, who agrees with keeping patient in our ICU. 0052: The patient remains significant deficit 0106: Questionable movement of the patients left shoulder, though no significant improvement. Critical care is at bedside. Blood pressure:Normal.No Referral necessary Disposition:Hospitalization Differentials:Differential includes acute coronary syndrome, myocardial infarction, CVA, TIA, anemia, infection, pneumonia, UTI, pyelonephritis, poor nutrition, dehydration, electrolyte disturbance,hypoglycemia, amongst other pathologies. Medical Decision Makin yr old female with history of HTN, DLP, DMII, Parox Afib, and obesity with previous Aortic valve repair 2010 on no anticoagulation who lives in senior care though on arrival is reported by EMS to usually be very with it. She arrives now with severe left sided weakness and neglect and NIH ~ 18. Initially is in Afib RVR and not being on blood thinners clearly acute occlusion and with high van score may meet intervention criteria. Thus it was felt that as already outside 3 hours but within 4.5 would get 18 g IV to obtain CTA head with initial non conCT. Immediately on seeing normal CT Head by my read and while CTA being done I called Neurologist. They advised TPA. Due to stroke cart not working I requested Dr Soto to evaluate patient with me to do 2 physician consent for TPA as furthermore patient is not with it enough to consent and the contact number for family does not work. We both agree patient is increased risk as between 3- 4.5 hours from onset but with consent of Neuro and both agreeing this is a devastating stroke is no improvement TPA will be given. Her BP is normal prior to giving, she has no recent surgeries, no known previous ICH, normal Plts and is on no other anticoagulants. TPA given. Monitoring over the next hour without significant improvement other than possibly a bit of shoulder shrug. I will note initially plan to transfer to Interventional facility as CTA showing M1 occlusion. Due to insurance issues I switched consult [place] [facility] [place] and even [facility] was en route. However, after they reviewed the records in their EPIC system they feel that her baseline weakness precludes her from having intervention at this time. Hospitalist consulted, along with ICU who will keep her here. Furthermore, and likely cause of her stroke is the Afib she is currently in. She was Afib RVR for EMS and thus cardizem, and then she received 2 doses IV Lopressor by me with good result. No chest pain nor stemi though does have some lateral st depressions likely secondary to rate. 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 Acute embolic stroke with afib rvr recieving TPA and IV rate meds along with discussion with multiple providers across 3 different facilities. This was a life/limb threatening event. This includes time spent evaluating patient, direct bedside care, chart review, placing orders, interpretation of diagnostic studies, discussion with consultants, patient, as well as other required patient management activities. This 90 minutes is in excess of all separately billable procedures. The scribe's documentation has been prepared under my direction and personally reviewed by me in its entirety. I confirm that the note above accurately reflects all work, treatment, procedures, and medical decision making performed by me. Franck Drew MD Impression & Plan Embolic stroke involving right middle cerebral artery, Atrial fibrillation with rapid ventricular response Past Med/Surg History Medical History (Updated 10/20/19 @ 06:27 by Franck Drew MD) Hyperlipidemia (Chronic) Hypertension (Chronic) Osteoporosis (Chronic) Paroxysmal A-fib (Chronic) Recurrent urinary tract infection (Chronic) Rheumatic valvular disease (Chronic) Stroke (cerebrum) Type 2 diabetes mellitus (Chronic) Surgical History Status post aortic valve replacement (Chronic) Family History Other Family history unknown Social History Preferred Language: Vietnamese Communication Ability: Effective Visual Impairment: No Limitations Hearing Ability: Normal Table Games Shift Manager Required: No Beliefs That Will Affect Care: None Current Living Situation: Care Home Other Information That Helps Us Care for You: No Feels Safe at Home: Yes Safety Concerns: Feels Safe At This Time Smoking Status: Never smoker Hx Alcohol Use: No Hx Substance Use: No Results & Data Vital Signs Vital Signs - 24 hr 10/19/19 23:57 10/19/19 23:58 10/19/19 23:59 Temperature Source Oral Pulse Rate 102 H 106 H 123 H Pulse Rate from SpO2 Sensor 127 H 123 H Respiratory Rate 20 Respiratory Effort / Characteristics Non-Labored Spontaneous Respiratory Depth Normal Blood Pressure 178/145 H Blood Pressure Mean 156 Pulse Oximetry 95 96 96 Oxygen Delivery Method Nasal Cannula Oxygen Flow Rate 2 Sepsis Recent Fever Within 48 Hours No Sepsis Action Taken by Nursing No Action Required 10/20/19 00:00 10/20/19 00:03 10/20/19 00:04 Temperature Source Pulse Rate 127 H 115 H 121 H Pulse Rate from SpO2 Sensor 140 H 121 H 129 H Respiratory Rate Respiratory Effort / Characteristics Respiratory Depth Blood Pressure 169/100 H 152/117 H Blood Pressure Mean 116 126 Pulse Oximetry 96 96 96 Oxygen Delivery Method Oxygen Flow Rate Sepsis Recent Fever Within 48 Hours Sepsis Action Taken by Nursing 10/20/19 00:07 10/20/19 00:10 10/20/19 00:16 Temperature Source Pulse Rate 110 H 104 H 115 H Pulse Rate from SpO2 Sensor 105 H 114 H 118 H Respiratory Rate Respiratory Effort / Characteristics Respiratory Depth Blood Pressure 141/72 H 129/85 Blood Pressure Mean 90 99 Pulse Oximetry 94 93 95 Oxygen Delivery Method Oxygen Flow Rate Sepsis Recent Fever Within 48 Hours Sepsis Action Taken by Nursing 10/20/19 00:20 10/20/19 00:30 10/20/19 00:31 Temperature Source Pulse Rate 117 H 102 H 99 H Pulse Rate from SpO2 Sensor 117 H 108 H 107 H Respiratory Rate Respiratory Effort / Characteristics Respiratory Depth Blood Pressure 126/84 Blood Pressure Mean 89 Pulse Oximetry 94 93 93 Oxygen Delivery Method Oxygen Flow Rate Sepsis Recent Fever Within 48 Hours Sepsis Action Taken by Nursing 10/20/19 00:32 10/20/19 00:40 10/20/19 00:46 Temperature Source Pulse Rate 101 H 101 H 114 H Pulse Rate from SpO2 Sensor 97 H 110 H 107 H Respiratory Rate Respiratory Effort / Characteristics Respiratory Depth Blood Pressure 140/88 Blood Pressure Mean 105 Pulse Oximetry 93 95 94 Oxygen Delivery Method Oxygen Flow Rate Sepsis Recent Fever Within 48 Hours Sepsis Action Taken by Nursing 10/20/19 00:47 10/20/19 00:50 10/20/19 01:00 Temperature Source Pulse Rate 105 H 97 H 111 H Pulse Rate from SpO2 Sensor 103 H 99 H 111 H Respiratory Rate Respiratory Effort / Characteristics Respiratory Depth Blood Pressure 123/87 Blood Pressure Mean 99 Pulse Oximetry 94 93 92 Oxygen Delivery Method Oxygen Flow Rate Sepsis Recent Fever Within 48 Hours Sepsis Action Taken by Nursing 10/20/19 01:01 10/20/19 01:10 10/20/19 01:16 Temperature Source Pulse Rate 99 H 100 H 98 H Pulse Rate from SpO2 Sensor 103 H 102 H 101 H Respiratory Rate Respiratory Effort / Characteristics Respiratory Depth Blood Pressure 123/87 112/75 Blood Pressure Mean 99 87 Pulse Oximetry 94 94 96 Oxygen Delivery Method Oxygen Flow Rate Sepsis Recent Fever Within 48 Hours Sepsis Action Taken by Nursing 10/20/19 01:17 10/20/19 01:20 10/20/19 01:30 Temperature Source Pulse Rate 109 H 109 H 95 H Pulse Rate from SpO2 Sensor 108 H 114 H 108 H Respiratory Rate Respiratory Effort / Characteristics Respiratory Depth Blood Pressure 122/89 Blood Pressure Mean 100 Pulse Oximetry 93 93 92 Oxygen Delivery Method Oxygen Flow Rate Sepsis Recent Fever Within 48 Hours Sepsis Action Taken by Nursing 10/20/19 01:31 10/20/19 01:40 10/20/19 01:45 Temperature Source Pulse Rate 99 H 110 H 104 H Pulse Rate from SpO2 Sensor 108 H 109 H 106 H Respiratory Rate Respiratory Effort / Characteristics Respiratory Depth Blood Pressure 122/89 131/93 131/93 Blood Pressure Mean 97 105 101 Pulse Oximetry 93 95 93 Oxygen Delivery Method Oxygen Flow Rate Sepsis Recent Fever Within 48 Hours Sepsis Action Taken by Care Home Medications Current Medication List: was personally reviewed by me Laboratory Data Attestation: I reviewed the patient's lab results. Result diagrams: 10/19/19 23:38 10/19/19 23:38 Lab Results 10/19/19 10/19/19 10/19/19 Range/Units 23:38 23:38 23:38 WBC 11.16 H (4.8-10.8) K/uL RBC 4.52 (4.2-5.4) M/uL Hgb 13.5 (12.0-16.0) g/dL POC Hgb (12.0-16.0) g/dl Hct 41.2 (37-47) % POC Hct (37-47) % MCV 91.2 (80-100) fL MCH 29.9 (25-34) pg MCHC 32.8 (32-36) g/dL RDW Std Deviation 49.7 H (36.4-46.3) fL RDW Coeff of Stanford 14.9 H (11.5-14.5) % Plt Count 156 (130-400) K/uL MPV 10.2 (7.4-10.4) fL Immature Gran % (Auto) 0.2 % Neut % (Auto) 68.4 % Lymph % (Auto) 22.9 % Greenlee % (Auto) 7.3 % Eos % (Auto) 1.0 % Baso % (Auto) 0.2 % Immature Gran # (Auto) 0.02 (0.00-0.02) K/uL Neut # (Auto) 7.64 H (1.4-6.5) K/uL Lymph # (Auto) 2.56 (1.2-3.4) K/uL Greenlee # (Auto) 0.81 H (0.11-0.59) K/uL Eos # (Auto) 0.11 (0-0.5) K/uL Baso # (Auto) 0.02 (0-0.2) K/uL PT 11.8 (9.0-12.0) Seconds INR 1.2 H (0.9-1.1) APTT 26.3 (21.0-31.0) Seconds PTT Ratio 1.0 POC Sodium (135-144) mEq/L Sodium 138 (136-145) mmol/L POC Potassium (3.3-5.0) mEq/L Potassium 4.2 (3.5-5.1) mmol/L POC Chloride (101-112) mEq/L Chloride 106 (98-107) mmol/L Carbon Dioxide 23 (21-32) mmol/L POC Total CO2 (24-31) mEq/l Anion Gap 9.0 (3-11) POC Anion Gap (16-25) mmol/L POC BUN (7-18) mg/dl BUN 14 (7-18) mg/dl Creatinine 0.94 (0.6-1.2) mg/dl POC Creatinine (0.6-1.3) mg/dl Est Cr Clr Drug Dosing 53.3 ml/min Est GFR ( Amer) 64.6 Est GFR (Non-Af Amer) 55.7 BUN/Creatinine Ratio 14.4 (10-20) Glucose 182 H (70-99) mg/dl POC Glucose (70-99) POC Glucose (other) (70-99) mg/dl Calcium 9.8 (8.5-10.1) mg/dl POC Ioniz Calcium Julio Cesar (1.12-1.32) mmol/l Magnesium 2.1 (1.8-2.4) mg/dl Total Bilirubin 1.3 H (0.2-1) mg/dl AST 23 (15-37) U/L ALT 17 (12-78) U/L Alkaline Phosphatase 74 (45-117) U/L Troponin I < 0.015 (0-0.045) ng/ml Total Protein 8.1 (6.4-8.2) gm/dl Albumin 3.9 (3.4-5.0) gm/dl Globulin 4.2 H (2.5-4.0) gm/dl Albumin/Globulin Ratio 0.9 (0.9-2) Blood Type Antibody Screen 10/19/19 10/19/19 10/19/19 Range/Units 23:38 23:39 23:58 WBC (4.8-10.8) K/uL RBC (4.2-5.4) M/uL Hgb (12.0-16.0) g/dL POC Hgb 14.3 (12.0-16.0) g/dl Hct (37-47) % POC Hct 42 (37-47) % MCV (80-100) fL MCH (25-34) pg MCHC (32-36) g/dL RDW Std Deviation (36.4-46.3) fL RDW Coeff of Stanford (11.5-14.5) % Plt Count (130-400) K/uL MPV (7.4-10.4) fL Immature Gran % (Auto) % Neut % (Auto) % Lymph % (Auto) % Greenlee % (Auto) % Eos % (Auto) % Baso % (Auto) % Immature Gran # (Auto) (0.00-0.02) K/uL Neut # (Auto) (1.4-6.5) K/uL Lymph # (Auto) (1.2-3.4) K/uL Greenlee # (Auto) (0.11-0.59) K/uL Eos # (Auto) (0-0.5) K/uL Baso # (Auto) (0-0.2) K/uL PT (9.0-12.0) Seconds INR (0.9-1.1) APTT (21.0-31.0) Seconds PTT Ratio POC Sodium 140 (135-144) mEq/L Sodium (136-145) mmol/L POC Potassium 4.2 (3.3-5.0) mEq/L Potassium (3.5-5.1) mmol/L POC Chloride 105 (101-112) mEq/L Chloride (98-107) mmol/L Carbon Dioxide (21-32) mmol/L POC Total CO2 23 L (24-31) mEq/l Anion Gap (3-11) POC Anion Gap 16.0 (16-25) mmol/L POC BUN 13 (7-18) mg/dl BUN (7-18) mg/dl Creatinine (0.6-1.2) mg/dl POC Creatinine 0.7 (0.6-1.3) mg/dl Est Cr Clr Drug Dosing ml/min Est GFR ( Amer) Est GFR (Non-Af Amer) BUN/Creatinine Ratio (10-20) Glucose (70-99) mg/dl POC Glucose 168 H (70-99) POC Glucose (other) 185 H (70-99) mg/dl Calcium (8.5-10.1) mg/dl POC Ioniz Calcium Julio Cesar 1.15 (1.12-1.32) mmol/l Magnesium (1.8-2.4) mg/dl Total Bilirubin (0.2-1) mg/dl AST (15-37) U/L ALT (12-78) U/L Alkaline Phosphatase (45-117) U/L Troponin I (0-0.045) ng/ml Total Protein (6.4-8.2) gm/dl Albumin (3.4-5.0) gm/dl Globulin (2.5-4.0) gm/dl Albumin/Globulin Ratio (0.9-2) Blood Type O Positive Antibody Screen NEGATIVE Administered Medications Famotidine 20 mg/ Syringe 5 mls @ 2.5 mls/min IV Q12H [facility] Stop: 11/19/19 03:59 Last Admin: 10/20/19 04:06 Dose: 2.5 mls/min Documented by: [id number] Parenteral Electrolytes (Normosol-R) 1,000 mls @ 80 mls/hr IV .[id number] FREDERICK Stop: 11/19/19 02:59 Last Admin: 10/20/19 03:03 Dose: 80 mls/hr Documented by: [id number] Ioversol (Optiray 320 125ml) 117 ml IV ONCE PRN PRN Reason: Interaction Checking Stop: 10/23/19 23:49 Last Admin: 10/19/19 23:51 Dose: 117 ml Documented by: [id number] Discontinued Medications Alteplase, Recombinant (Activase For Stroke) 1 ea IV NOW STA; Protocol Stop: 10/19/19 23:59 Last Admin: 10/20/19 00:19 Dose: 1 ea Documented by: [id number] Alteplase, Recombinant 9 mg/ (Syringe) 9 mls @ 9 mls/min IV ONCE ONE Stop: 10/20/19 00:10 Last Admin: 10/20/19 00:15 Dose: 9 mls/min Documented by: [id number] Cosigned by: [id number] Alteplase, Recombinant 81 mg/ (EMPTY BAG) 81 mls @ 81 mls/hr IV ONCE ONE Stop: 10/20/19 00:11 Last Infusion: 10/20/19 01:16 Dose: 0 mls/hr Documented by: [id number] Cosigned by: [id number] Admin: 10/20/19 00:18 Dose: 81 mls/hr Documented by: [id number] Cosigned by: [id number] Potassium Chloride/Sodium Chloride (Normal Saline W/20 Meq Kcl) 20 meq in 1,000 mls @ 100 mls/hr IV .Q10H FREDERICK Stop: 11/19/19 02:45 Last Admin: 10/20/19 05:51 Dose: Not Given Documented by: [id number] Vancomycin HCl 2,000 mg/ (Sodium Chloride) 540 mls @ 200 mls/hr IV NOW ONE Stop: 10/20/19 05:48 Last Admin: 10/20/19 04:06 Dose: 200 mls/hr Documented by: [id number] Metoprolol Tartrate (Lopressor) 5 mg IV NOW STA Stop: 10/20/19 00:02 Last Admin: 10/20/19 00:19 Dose: 5 mg Documented by: [id number] Metoprolol Tartrate (Lopressor) 5 mg IV NOW STA Stop: 10/20/19 00:24 Last Admin: 10/20/19 00:31 Dose: 5 mg Documented by: [id number] Metoprolol Tartrate (Lopressor) 5 mg IV NOW STA Stop: 10/20/19 03:57 Last Admin: 10/20/19 04:05 Dose: 5 mg Documented by: [id number] Metoprolol Tartrate (Lopressor) Confirm Administered Dose 5 mg IV .STK-MED ONE Stop: 10/20/19 04:01 Last Admin: 10/20/19 04:06 Dose: Not Given Documented by: [id number] Imaging Data Radiologist's Impression: Radiology results as stated below per my review and the radiologist's interpretation: CT HEAD: Impression: No intracranial hemorrhage. Global parenchymal volume loss with extensive chronic microvascular ischemic c hanges which degrades evaluation for early CT change of acute infarction. No mass lesion or mass effect. Radiologist: Ashok Jaimes MD Study ready at 23:59 and initial results transmitted at 00:03 CTA HEAD: Impression: Thrombus in the M1 segment of the right middle cerebral artery measuring approximately 9 mm. 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 The left vertebral artery and basilar artery are widely patent. Radiologist: Ashok Jaimes MD Study ready at 23:59 and initial results transmitted at 00:07 CTA NECK: Impression: No hemodynamically significant stenosis of the cervical carotid or vertebral art eries. 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 Radiologist: Ashok Jaimes MD Study ready at 00:06 and initial results transmitted at 00:09. Discharge Plan Visit Data *Final* Discharge Date/Time: 10/20/19 02:05 Chief Complaint: Stroke Alert Stated Complaint: STROKE ED Provider: Franck Drew Discharge Problem: Embolic stroke involving right middle cerebral artery, Atrial fibrillation with rapid ventricular response Patient Disposition: Admitted As Inpatient Discharge Instructions Interventions: ED Discharge Assessment Last Done: 10/20/19 02:05 The scribe's documentation has been prepared under my direction and personally reviewed by me in its entirety. I confirm that the note above accurately reflects all work, treatment, procedures, and medical decision making performed by me.
[2019-10-20 06:46] LABS: BUN Creatinine Ratio 19.3 (10-20); Calcium 8.5 mg/dl (8.5-10.1); Est GFR (African American) 84.8; Est GFR (Non-African American) 73.2; Magnesium 1.9 mg/dl (1.8-2.4); Potassium 3.8 mmol/L (3.5-5.1)
[2019-10-20 06:47] LABS: Phosphorus 3.2 mg/dl (2.5-4.9)
[2019-10-20 06:58] LABS: Estimated Average Glucose 126 mg/dl
--- NOTE | 2019-10-20 07:11 | CT Scan Report ---
CT angio head w con CLINICAL HISTORY: 84 years-old Female presenting with left sided weakness, new onset AFib RVR. TECHNIQUE: Multidetector CT angiography of the head was performed after the administration of intrave nous contrast. 3-D volumetric and/or maximum intensity projection (MIP) images were subsequently queta nstructed for review. IV contrast: 117 mL of Optiray 320. One or more dose lowering techniques were u sed consistent with the principles of ALARA (as low as reasonably achievable), including automatic ex posure control, mA or kV adjustment to individual patient size, and/or use of iterative reconstructio n. COMPARISON: None. CT DOSE (mGy.cm): The estimated cumulative dose is 1180.92. FINDINGS: [employer]enger [employer] topogram: Median sternotomy wires. Anterior circulation: Atherosclerosis of the cavernous segments of the internal carotid arteries. Int racranial portions of the internal carotid arteries patent to the level of the termini. Anterior cere bral arteries patent. Conclusion of the M1 segment of the right middle cerebral artery (MCA) from the carotid terminus to the bifurcation measuring approximately 8 mm. The M2 segments of the right MCA a re patent. Left MCA patent. Anterior communicating artery patent. Posterior circulation: Codominant vertebral arteries. Occlusion of the right vertebral artery extendi ng from the level of C1-skull base to the basilar confluence (V4 segment). Left vertebral artery mckeon nt. Poor opacification of the right posterior inferior cerebellar artery (PICA). Left PICA patent. Ba silar artery patent. Anterior inferior cerebellar arteries poorly visualized. Superior cerebellar art eries patent. Posterior cerebral arteries patent. Posterior communicating arteries patent. Dural venous sinuses: Patent. Other: Allowing for the phase of contrast, brain parenchyma demonstrates age-related change and chron ic small vessel ischemic change. [place] lenses are absent. Calvarium intact. IMPRESSION: 1. Occlusion of the M1 segment of the right MCA. 2. 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 3. Poor flow within the right PICA. These findings were discussed with Dr. Drew by Dr. Jaimes on 10/20/2019 00:08 AM. Electronically signed by: Demarcus Boykin M.D. 10/20/2019 7:09 AM
--- NOTE | 2019-10-20 07:14 | CT Scan Report ---
CT head/brain wo con CLINICAL HISTORY: 84 years-old Female presenting with Stroke evaluation, new onset left-sided weaknes s, new onset A. fib with RVR. TECHNIQUE: Multidetector CT imaging of the head was performed without the use of intravenous contrast . IV contrast: None. One or more dose lowering techniques were used consistent with the principles of ALARA (as low as reasonably achievable), including automatic exposure control, mA or kV adjustment t o individual patient size, and/or use of iterative reconstruction. COMPARISON: 09/27/2018. CT DOSE (mGy.cm): The estimated cumulative dose is 1180.92 mGy.cm. FINDINGS: Hand Candle Molder topogram: Median sternotomy wires. Proportional ventricular and sulcal prominence, likely age-related parenchymal volume loss. No hemorr leonel. Periventricular and subcortical white matter hypoattenuation, nonspecific but likely indicative of chronic small vessel ischemic change. No acute territorial infarct. No mass effect or midline tiffany ft. No extra-axial fluid collection. Paranasal sinuses and mastoid air cells clear. Calvarium intact. IMPRESSION: 1. Chronic small vessel ischemic change. No acute intracranial abnormality. 2. Please see separately dictated CTA head for acute findings. These findings were discussed with Dr. Drew by Dr. Jaimes on 10/20/2019 00:07 AM. Electronically signed by: Demarcus Boykin M.D. 10/20/2019 7:12 AM
--- NOTE | 2019-10-20 07:16 | CT Scan Report ---
CT ANGIOGRAPHY OF THE NECK WITH CONTRAST CLINICAL HISTORY: left sided weakness, new onset AFib RVR COMPARISON STUDY: Carotid ultrasound October 24, 2010. Technique: CT angiography of the carotid and vertebral arteries was obtained using [employer] 320 IV and 3D reconstruction on an independent workstation. NASCET criteria was utilized. Automated exposure c ontrol was utilized for the study. A dose lowering technique was utilized adhering to the principles of ALARA. Findings: The bilateral common carotid and cervical internal carotid arteries are patent. There is no stenosis or dissection within these vessels. The left vertebral artery is also patent. There is abru pt occlusion of the distal cervical portion of the right vertebral artery as well as the intracranial portion of the right vertebral artery. The appearance favors thrombus within this vessel. The CTA of the head will be reported separately and better depicted abrupt occlusion of the right M1 segment li chip due to thrombus. Bilateral pleural effusions are partially imaged. There is no cervical lymphade nopathy. There is no cervical spine fracture or suspicious lesion. Epiglottis is normal. IMPRESSION: 1. Abrupt occlusion of the distal cervical and intracranial portion of the right vertebral artery lik keke due to thrombus. 2. Abrupt occlusion of the right M1 segment likely due to thrombus, better depicted on the CTA of the head. Electronically signed by: Jadiel Cardoza M.D. 10/20/2019 7:15 AM
--- NOTE | 2019-10-20 07:29 | XRay Report ---
XR chest 1V portable CLINICAL HISTORY: 84 years-old Female presenting with CVA, post TPA. TECHNIQUE: Portable upright AP view of the chest was obtained. COMPARISON: 09/27/2018. FINDINGS: Median sternotomy wires and prosthetic aortic valve again noted. Numerous external leads project over the thorax to grating evaluation. Atherosclerosis of the aortic arch. Cardiac silhouette moderately enlarged. Pulmonary vascular prominence and significant interstitial prominence. Bilateral hilar prom inence likely vascular when correlating with prior CT from 09/27/2018. Mildly low lung volumes. Mild added density of the lungs is suspected. No focal opacity. No large effusion or pneumothorax. Osteope miles. Upper abdomen normal. IMPRESSION: 1. Cardiomegaly with volume overload and congestive change. Early/developing pulmonary edema not exc luded. 2. Postsurgical changes of aortic valve replacement. Electronically signed by: Demarcus Boykin M.D. 10/20/2019 7:28 AM
--- NOTE | 2019-10-20 08:39 | Neurology Consultation ---
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 In lieu of her history of paroxysmal atrial fibrillation, the abrupt onset of these symptoms, and the lack of diffuse vascular findings on CT angiography poin t toward an embolic etiology (from the heart) of this stroke. CT angiography showed an abruptly occluded right M1 segment as well as a right V4 occlusion. There were no other stenoses noted in the head or neck. CT scan of the head showed no hemorrhage but there was diffuse atrophy, ventricular enlargement, and old white matter changes. Patient was on no antiplatelet medication or anticoagulation prior to admission. On examination currently NIH stroke scale is 13. She has a moderate left ascencion paresis with dense facial droop on the left. She has a significant left homonymous hemianopsia and severe dysarthria. I do not detect aphasia. There is some neglect on the left but sensory examination is difficult at this time. Patient has a history of hypertension and her blood pressure was significantly elevated on admission. It is currently improved. She has a history of type 2 diabetes but her hemoglobin A1c is 6.0. There is a history of dyslipidemia but her triglycerides and total cholesterol were quite normal. There is no cigarette smoking history but she does have a remote history of obstructive sleep apnea which I do not believe is being treated. There was a question of normal pressure hydrocephalus back in September [address] scan. Although she does have some nonspecific memory problems and incontinence these are for likely due to other issues. She is not walking be cause of falls in the past. She does have considerable atrophy on CT scan and I am inclined to believe she has hydrocephalus ex vacuo. Nevertheless, she has never had an MRI of the brain or other testing regarding this possible NPH diagnosis. Recommendations: 1. Control blood pressure as you are doing aiming for a mean arterial pressure approximately 100 2. Continue her usual dose of statin as her lipid parameters are well controlled. She is not a high dose statin candidate. 3. Treat elevated glucose but her hemoglobin A1c is quite good at 6.0 4. Consider MRI of the brain without contrast to evaluate extent of the stroke (for prognosis) and extent of white matter disease and ventricular enlargement versus atrophy. 5. Echocardiogram is pending. 6. Physical, occupational, and speech therapy consults. 7. Consider initiation of anticoagulation after 24 hours from tPA in lieu of her atrial fibrillation and embolic stroke. 8. With her significant white matter disease I would initiate 81 milligram aspirin tablet daily. 9. She is due for repeat CT scan 24 hours after tPA. After today initiate date 2 tPA protocol order set. Overall, I spent a total of 110 minutes with this case including review of records, review of CT films, direct evaluation the patient at bedside, and discuss the case with the patient and her brother at bedside, RN at bedside, Dr. Thomas ICU, and Dr. Liao, including differential diagnosis and treatment options. History of Present Illness Reason for Consultation: Patient is an 84-year-old, was asked to see the request of Dr. Hdez, for neurologic consultation regarding stroke Requesting Physician: Dr. thurston room Attending Physician: Gonzalo Liao, DO History of Present Illness The patient's past history is not entirely clear to me as I do not have a lot of old records. She does have a longstanding history of hypertension and type 2 diabetes. She has had atrial fibrillation paroxysmally in the past but I am not certain how long this has been going on for (at least 1 year). There is no record that she was on anticoagulation. She is not on antiplatelet medication either. She has a history of dyslipidemia and was on simvastatin. In September of 2018 the patient was admitted after falling and was confused. There was a question of normal pressure hydrocephalus on CT scan of the head. She was evaluated by [facility] but apparently there was no follow-up. I cannot find that she ever had an MRI of the brain. She was put in [facility] at that time and has been there ever since. Apparently she is essentially wheelchair bound and is not walking much. In 2009 she was diagnosed with moderate obstructive sleep apnea but no follow-up was given for this and I do not believe she is on CPAP. She has a history of frequent UTIs and has some urinary incontinence. According to family, she is not overtly demented but does have some short-term memory problems. At 1999 on October 19, she was doing well at her baseline during a routine check. Sometime thereafter she was found with left-sided weakness and facial droop and right gaze preference with slurred speech. She was taken to the emergency room. She arrived October 19 at the emergency room at 2357 with the pulse of 101 in atrial fibrillation, respiratory rate 20, blood pressure 178/145 and O2 saturation 95 percent on 2 liters. Clinically she was described as somewhat confused with significant left-sided weakness and numbness left facial droop, left-sided neglect, right grades preference, and slurred speech. Initial NIH stroke score was 18. She had significant blood pressure issues and needed to have her blood pressure controlled. CT scan of the head showed atrophy of a significant nature and old white matter changes but no acute changes or bleeding. CT angiography of the head and neck revealed an abrupt right M1 occlusion, abrupt right distal (V4) vertebral occlusion, and some slow flow in the right PICA CBC showed a white count of 11.1 and Chem profile was remarkable for glucose of 182. Tele stroke art was not working and the ER physician contacted the [facility] physician. Since she is a [facility] except that her for transfer for thrombectomy but decided in lieu of her significant medical issues and conditions that she was not a thrombectomy ca ndidate. Therefore she was admitted to our ICU. When she got to the ICU, NIH stroke scale was 16. Urine had greater than 30 white cells and she was put on ceftriaxone This morning, blood pressure was 134/99 a pulse of 1 0 weight. TSH 1.7, hemoglobin A1c 6.0, glucose 170, triglycerides 68, total cholesterol 81. She is MRSA positive. Patient has no complaint of pain or headaches. She does not have shortness of breath, chest pain, or abdominal pain. She has no dizziness or double vision. Allergies Allergy/AdvReac Type Severity Reaction Status Date / Time No Known Allergies Allergy Unverified 10/20/19 00:15 Home Medications Home Medications Medication Instructions Recorded Confirmed Type amoxicillin 2,000 mg PO DIRECTED 09/27/18 10/20/19 History glipizide 5 mg PO BID 09/27/18 10/19/19 History losartan 12.5 mg PO DAILY 09/27/18 10/19/19 History metoprolol tartrate 25 mg PO BID 09/27/18 10/20/19 History polyethylene glycol 3350 [Miralax] 17 g PO DAILY PRN 10/19/19 10/19/19 History Cavilon Af 1 applic TOPICAL AMHS 10/20/19 10/20/19 History acetaminophen 650 mg PO DAILY 10/20/19 10/20/19 History acetaminophen 650 mg PO Q6H PRN 10/20/19 10/20/19 History acetaminophen 650 mg PO Q6H PRN MDD 3g/24hr 10/20/19 10/20/19 History blpkpjnn-ncbofblovbc-havzn, wh 1 applic TOPICAL HS 10/20/19 10/20/19 History [Moisturizing Cream] lanolin rkutwiv-ud-m.pet-ceres 1 applic TOPICAL AMPM 10/20/19 10/20/19 History [Eucerin] menthol-zinc oxide [Calmoseptine] 1 applic TOPICAL QS 10/20/19 10/20/19 History vwfskaezzczd-Tl-reed-minerals 1 tab PO DAILY 10/20/19 10/20/19 History [Multiple Vitamin, Womens] omeprazole 20 mg PO DAILY 10/20/19 10/20/19 History ondansetron HCl 4 mg PO Q8 PRN 10/20/19 10/20/19 History Patient History Medical History Hyperlipidemia (Chronic) Hypertension (Chronic) Osteoporosis (Chronic) Paroxysmal A-fib (Chronic) Recurrent urinary tract infection (Chronic) Rheumatic valvular disease (Chronic) Stroke (cerebrum) Type 2 diabetes mellitus (Chronic) Surgical History S/P cataract surgery Status post aortic valve replacement (Chronic) Family History Mother , age 92 Hypertension Father , age 95 No problems noted. 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 Feels Safe at Home: Yes Safety Concerns: Feels Safe At This Time Smoking Status: Never smoker Hx Alcohol Use: No Hx Substance Use: No Review of Systems Constitutional: + fatigue and + weakness; no fever Eyes: + worsening vision; no diplopia and no eye pain Ear, Nose, Mouth, Throat: + dysphagia; no hearing loss and no dizziness Respiratory: no cough and no dyspnea Cardiovascular: no chest pain, no palpitations and no lightheadedness Gastrointestinal: no abdominal pain, no nausea and no vomiting Genitourinary: + urinary incontinence; no dysuria and no urinary frequency Musculoskeletal: no back pain, no neck pain, no radicular pain, no joint pain and no myalgia Integumentary: no rash and no lesions Neurologic: + localized weakness, + numbness, + abnormal speech and + memory loss; no gait abnormality, no generalized weakness, no tingling, no tremor(s), no abnormal movements, no headache(s) and no confusion Psychiatric: no depression, no irritability, no anxiety, no difficulty concentrating, no confusion and no hallucinations Endocrine: + fatigue; no flushing Hematologic / Lymphatic: no easy bleeding and no easy bruising Allergy / Immunological: no urticaria and no problem reported Physical Exam Physical Exam: The patient is right-handed. The patient is awake, alert, and attentive, although she is fatigued from being up all night. Speech is very dysarthric. I cannot detect any obvious aphasia. She can name objects, repeat phrases, and has spontaneous speech. Mentation and thought processes are seemingly intact to conversation, with orientation to person, place and time, and normal fund of knowledge. Attention and concentration are normal. Mood and affect are normal and appropriate. General appearance and grooming are normal. Short and long-term memory are reasonable but she does have some deficits. The discs are sharp with positive venous pulsations bilaterally. There are no exudates, hemorrhages, or blood vessel changes seen. Pupils are 3 mm bilaterally and reactive to light. Extraocular eye muscles are intact without nystagmus. She has a dense left homonymous hemianopsia. There are no deficits to sensation in the face in all 3 distributions of the fifth cranial nerve bilaterally. Corneal reflexes are positive bilaterally. She has a dense facial droop on the left with no movement voluntarily. The right moves well. Hearing seems normal to whisper and finger rub bilaterally. Palate moves well without asymmetry. There is normal sternocleidomastoid strength bilaterally. There is weakness in the left shoulder shrug. Tongue is midline but somewhat weak bilaterally. Neck has a full range of motion without discomfort. There are no cervical bruits bilaterally. There are no cranial or ocular bruits. Heart is without murmur. She is in atrial fibrillation with a rapid ventricular rate. Cervical, thoracic, and lumbar spine are nontender to palpation. Gait and stance are not tested as she is bed-bound currently. With outstretched arm on the right there is actually some pronating drift. The left is more difficult for her to hold out. There are no resting, postural, or action tremors. There is no ataxia with finger to nose testing especially on the right. There is reasonable facility on the right and decreased on the left. No other abnormal involuntary movements are noted. Motor strength is 4 to 4+/5 diffusely in the right upper extremity both proximally distally. In the left upper extremity strength is 4-/5 in the hand and arm and closer to of 3/5 proximally in the shoulder. Leg strength is 4/5 diffusely in the right leg both proximally distally and 4-/5 diffusely in the left leg. The limbs have somewhat decreased tone without rigidity or spasticity diffusely. There is no atrophy noted in the muscles. Muscle bulk is normal, there is no tenderness to palpation, no myotonia to percussion, and no fasciculations seen. Sensory examination is intact to touch and pin throughout all 4 limbs diffusely. Reflexes are 2/4 in the biceps, triceps, and brachioradialis tendons bilaterally. Quadriceps and Achilles tendon reflexes are absent bilaterally. There is no clonus bilaterally. Toes are downgoing with plantar stimulation on the right and upgoing on the left. Peripheral pulses are present and of normal quality distally in all 4 limbs. There is no peripheral edema noted in the limbs. Results & Data Vital Signs (Past 12 Hours) Vital Signs Temp Pulse Resp BP Pulse Ox 10/20/19 06:45 108 H 18 134/99 97 10/20/19 06:15 103 H 16 136/94 97 10/20/19 05:48 101 H 16 154/96 H 96 10/20/19 05:15 36.6 C 120 H 18 130/109 H 96 10/20/19 04:46 108 H 18 158/107 H 96 10/20/19 04:30 113 H 95 10/20/19 04:17 36.8 C 132 H 16 125/108 H 95 10/20/19 04:05 124 H 145/116 H 10/20/19 04:00 117 H 97 10/20/19 03:50 128 H 18 145/116 H 98 10/20/19 03:45 115 H 18 152/126 H 95 10/20/19 03:30 129 H 95 10/20/19 03:16 101 H 96 10/20/19 03:15 120 H 16 143/105 H 96 10/20/19 03:00 104 H 96 10/20/19 02:45 107 H 16 109/83 95 10/20/19 02:24 126 H 10/20/19 02:15 37.0 C 110 H 18 154/97 H 91 10/20/19 02:05 110 H 18 154/92 H 94 10/20/19 02:01 110 H 108/80 94 10/20/19 02:00 103 H 94 10/20/19 01:50 122 H 94 10/20/19 01:45 104 H 131/93 93 10/20/19 01:40 110 H 131/93 95 10/20/19 01:31 99 H 122/89 93 10/20/19 01:30 95 H 122/89 92 10/20/19 01:20 109 H 93 10/20/19 01:17 109 H 93 10/20/19 01:16 98 H 112/75 96 10/20/19 01:10 100 H 94 10/20/19 01:01 99 H 123/87 94 10/20/19 01:00 111 H 123/87 92 10/20/19 00:50 97 H 93 10/20/19 00:47 105 H 94 10/20/19 00:46 114 H 140/88 94 10/20/19 00:40 101 H 95 10/20/19 00:32 101 H 93 10/20/19 00:31 99 H 126/84 93 10/20/19 00:30 102 H 93 10/20/19 00:20 117 H 94 10/20/19 00:16 115 H 129/85 95 10/20/19 00:10 104 H 93 10/20/19 00:07 110 H 141/72 H 94 10/20/19 00:04 121 H 152/117 H 96 10/20/19 00:03 115 H 169/100 H 96 10/20/19 00:00 127 H 96 10/19/19 23:59 123 H 96 10/19/19 23:58 106 H 178/145 H 96 10/19/19 23:57 102 H 20 95 PG Care Time/CCT Total # of Minutes Spent Total Time Spent with Patient: Total time spent is greater than 50% in coordination of care (as documented) at patient's floor/unit and/or counseling patient:
[2019-10-20] MEDS ORDERED: ERTAPENEM SODIUM 1,000 MG in SYRINGE 0 ML IM SCH (09:00)
[2019-10-20] MEDS ORDERED: cefTRIAXone SODIUM 2,000 MG in DEXTROSE 5% 50 ML IV SCH (09:00)
[2019-10-20] MEDS: ERTAPENEM SODIUM 1,000 MG in SODIUM CHLORIDE 0.9% 50 ML IV SCH (09:48)
--- NOTE | 2019-10-20 10:04 | Critical Care Progress Note ---
Date of Service October 20, 2019 Results & Data Vital Signs (Past 12 Hours) Vital Signs Temp Pulse Pulse Resp BP BP Pulse Ox 10/20/19 09:15 118 H 164/113 H 97 10/20/19 08:45 115 H 178/104 H 97 10/20/19 08:15 109 H 20 178/104 H 97 10/20/19 07:45 110 H 149/104 H 96 10/20/19 07:15 100 H 164/102 H 97 10/20/19 06:45 108 H 18 134/99 97 10/20/19 06:15 103 H 16 136/94 97 10/20/19 05:48 101 H 16 154/96 H 96 10/20/19 05:15 36.6 C 120 H 18 130/109 H 96 10/20/19 04:46 108 H 18 158/107 H 96 10/20/19 04:30 113 H 95 10/20/19 04:17 36.8 C 132 H 16 125/108 H 95 10/20/19 04:05 124 H 145/116 H 10/20/19 04:00 117 H 97 10/20/19 03:50 128 H 18 145/116 H 98 10/20/19 03:45 115 H 18 152/126 H 95 10/20/19 03:30 129 H 95 10/20/19 03:16 101 H 96 10/20/19 03:15 120 H 16 143/105 H 96 10/20/19 03:00 104 H 96 10/20/19 02:45 107 H 16 109/83 95 10/20/19 02:24 126 H 10/20/19 02:15 37.0 C 110 H 18 154/97 H 91 10/20/19 02:05 110 H 18 154/92 H 94 10/20/19 02:01 110 H 108/80 94 10/20/19 02:00 103 H 94 10/20/19 01:50 122 H 94 10/20/19 01:45 104 H 131/93 93 10/20/19 01:40 110 H 131/93 95 10/20/19 01:31 99 H 122/89 93 10/20/19 01:30 95 H 122/89 92 10/20/19 01:20 109 H 93 10/20/19 01:17 109 H 93 10/20/19 01:16 98 H 112/75 96 10/20/19 01:10 100 H 94 10/20/19 01:01 99 H 123/87 94 10/20/19 01:00 111 H 123/87 92 10/20/19 00:50 97 H 93 10/20/19 00:47 105 H 94 10/20/19 00:46 114 H 140/88 94 10/20/19 00:40 101 H 95 10/20/19 00:32 101 H 93 10/20/19 00:31 99 H 126/84 93 10/20/19 00:30 102 H 93 10/20/19 00:20 117 H 94 10/20/19 00:16 115 H 129/85 95 10/20/19 00:10 104 H 93 10/20/19 00:07 110 H 141/72 H 94 10/20/19 00:04 121 H 152/117 H 96 10/20/19 00:03 115 H 169/100 H 96 10/20/19 00:00 127 H 96 10/19/19 23:59 123 H 96 10/19/19 23:58 106 H 178/145 H 96 10/19/19 23:57 102 H 20 95 Laboratory Results 10/20/19 10/20/19 10/20/19 Range/Units 05:43 03:20 03:20 WBC (4.8-10.8) K/uL RBC (4.2-5.4) M/uL Hgb (12.0-16.0) g/dL POC Hgb (12.0-16.0) g/dl Hct (37-47) % POC Hct (37-47) % MCV (80-100) fL MCH (25-34) pg MCHC (32-36) g/dL RDW Std Deviation (36.4-46.3) fL RDW Coeff of Stanford (11.5-14.5) % Plt Count (130-400) K/uL MPV (7.4-10.4) fL Immature Gran % (Auto) % Neut % (Auto) % Lymph % (Auto) % [place] % (Auto) % Eos % (Auto) % Baso % (Auto) % Immature Gran # (Auto) (0.00-0.02) K/uL Neut # (Auto) (1.4-6.5) K/uL Lymph # (Auto) (1.2-3.4) K/uL [place] # (Auto) (0.11-0.59) K/uL Eos # (Auto) (0-0.5) K/uL Baso # (Auto) (0-0.2) K/uL PT (9.0-12.0) Seconds INR (0.9-1.1) APTT (21.0-31.0) Seconds PTT Ratio POC Sodium (135-144) mEq/L Sodium 139 (136-145) mmol/L POC Potassium (3.3-5.0) mEq/L Potassium 3.8 (3.5-5.1) mmol/L POC Chloride (101-112) mEq/L Chloride 110 H (98-107) mmol/L Carbon Dioxide 22 (21-32) mmol/L POC Total CO2 (24-31) mEq/l Anion Gap 8.0 (3-11) POC Anion Gap (16-25) mmol/L POC BUN (7-18) mg/dl BUN 14 (7-18) mg/dl Creatinine 0.75 (0.6-1.2) mg/dl POC Creatinine (0.6-1.3) mg/dl Est Cr Clr Drug Dosing 65.0 ml/min Est GFR ( Amer) 84.8 Est GFR (Non-Af Amer) 73.2 BUN/Creatinine Ratio 19.3 (10-20) Glucose 170 H (70-99) mg/dl POC Glucose (70-99) POC Glucose (other) (70-99) mg/dl Estimat Average Glucose mg/dl Hemoglobin A1c (4.5-5.6) % Calcium 8.5 (8.5-10.1) mg/dl POC Ioniz Calcium Julio Cesar (1.12-1.32) mmol/l Phosphorus 3.2 (2.5-4.9) mg/dl Magnesium 1.9 (1.8-2.4) mg/dl Total Bilirubin (0.2-1) mg/dl AST (15-37) U/L ALT (12-78) U/L Alkaline Phosphatase (45-117) U/L Troponin I < 0.015 (0-0.045) ng/ml Total Protein (6.4-8.2) gm/dl Albumin (3.4-5.0) gm/dl Globulin (2.5-4.0) gm/dl Albumin/Globulin Ratio (0.9-2) Triglycerides 68 (0-150) mg/dl Cholesterol 81 (0-200) mg/dl LDL Cholesterol, Calc 20 mg/dl VLDL Cholesterol, Calc 14 mg/dl HDL Cholesterol 47 mg/dl Cholesterol/HDL Ratio 2 Procalcitonin < 0.05 (0-0.5) ng/ml TSH 1.790 (0.300-4.500) uIu/ml Nasal Screen MRSA (PCR) (Negative) Blood Type Antibody Screen 10/20/19 10/20/19 10/19/19 Range/Units 03:20 02:30 23:58 WBC (4.8-10.8) K/uL RBC (4.2-5.4) M/uL Hgb (12.0-16.0) g/dL POC Hgb (12.0-16.0) g/dl Hct (37-47) % POC Hct (37-47) % MCV (80-100) fL MCH (25-34) pg MCHC (32-36) g/dL RDW Std Deviation (36.4-46.3) fL RDW Coeff of Stanford (11.5-14.5) % Plt Count (130-400) K/uL MPV (7.4-10.4) fL Immature Gran % (Auto) % Neut % (Auto) % Lymph % (Auto) % [place] % (Auto) % Eos % (Auto) % Baso % (Auto) % Immature Gran # (Auto) (0.00-0.02) K/uL Neut # (Auto) (1.4-6.5) K/uL Lymph # (Auto) (1.2-3.4) K/uL [place] # (Auto) (0.11-0.59) K/uL Eos # (Auto) (0-0.5) K/uL Baso # (Auto) (0-0.2) K/uL PT (9.0-12.0) Seconds INR (0.9-1.1) APTT (21.0-31.0) Seconds PTT Ratio POC Sodium (135-144) mEq/L Sodium (136-145) mmol/L POC Potassium (3.3-5.0) mEq/L Potassium (3.5-5.1) mmol/L POC Chloride (101-112) mEq/L Chloride (98-107) mmol/L Carbon Dioxide (21-32) mmol/L POC Total CO2 (24-31) mEq/l Anion Gap (3-11) POC Anion Gap (16-25) mmol/L POC BUN (7-18) mg/dl BUN (7-18) mg/dl Creatinine (0.6-1.2) mg/dl POC Creatinine (0.6-1.3) mg/dl Est Cr Clr Drug Dosing ml/min Est GFR ( Amer) Est GFR (Non-Af Amer) BUN/Creatinine Ratio (10-20) Glucose (70-99) mg/dl POC Glucose 168 H (70-99) POC Glucose (other) (70-99) mg/dl Estimat Average Glucose 126 mg/dl Hemoglobin A1c 6.0 H (4.5-5.6) % Calcium (8.5-10.1) mg/dl POC Ioniz Calcium Julio Cesar (1.12-1.32) mmol/l Phosphorus (2.5-4.9) mg/dl Magnesium (1.8-2.4) mg/dl Total Bilirubin (0.2-1) mg/dl AST (15-37) U/L ALT (12-78) U/L Alkaline Phosphatase (45-117) U/L Troponin I (0-0.045) ng/ml Total Protein (6.4-8.2) gm/dl Albumin (3.4-5.0) gm/dl Globulin (2.5-4.0) gm/dl Albumin/Globulin Ratio (0.9-2) Triglycerides (0-150) mg/dl Cholesterol (0-200) mg/dl LDL Cholesterol, Calc mg/dl VLDL Cholesterol, Calc mg/dl HDL Cholesterol mg/dl Cholesterol/HDL Ratio Procalcitonin (0-0.5) ng/ml TSH (0.300-4.500) uIu/ml Nasal Screen MRSA (PCR) Positive A (Negative) Blood Type Antibody Screen 10/19/19 10/19/19 10/19/19 Range/Units 23:39 23:38 23:38 WBC (4.8-10.8) K/uL RBC (4.2-5.4) M/uL Hgb (12.0-16.0) g/dL POC Hgb 14.3 (12.0-16.0) g/dl Hct (37-47) % POC Hct 42 (37-47) % MCV (80-100) fL MCH (25-34) pg MCHC (32-36) g/dL RDW Std Deviation (36.4-46.3) fL RDW Coeff of Stanford (11.5-14.5) % Plt Count (130-400) K/uL MPV (7.4-10.4) fL Immature Gran % (Auto) % Neut % (Auto) % Lymph % (Auto) % [place] % (Auto) % Eos % (Auto) % Baso % (Auto) % Immature Gran # (Auto) (0.00-0.02) K/uL Neut # (Auto) (1.4-6.5) K/uL Lymph # (Auto) (1.2-3.4) K/uL [place] # (Auto) (0.11-0.59) K/uL Eos # (Auto) (0-0.5) K/uL Baso # (Auto) (0-0.2) K/uL PT (9.0-12.0) Seconds INR (0.9-1.1) APTT (21.0-31.0) Seconds PTT Ratio POC Sodium 140 (135-144) mEq/L Sodium 138 (136-145) mmol/L POC Potassium 4.2 (3.3-5.0) mEq/L Potassium 4.2 (3.5-5.1) mmol/L POC Chloride 105 (101-112) mEq/L Chloride 106 (98-107) mmol/L Carbon Dioxide 23 (21-32) mmol/L POC Total CO2 23 L (24-31) mEq/l Anion Gap 9.0 (3-11) POC Anion Gap 16.0 (16-25) mmol/L POC BUN 13 (7-18) mg/dl BUN 14 (7-18) mg/dl Creatinine 0.94 (0.6-1.2) mg/dl POC Creatinine 0.7 (0.6-1.3) mg/dl Est Cr Clr Drug Dosing 53.3 ml/min Est GFR ( Amer) 64.6 Est GFR (Non-Af Amer) 55.7 BUN/Creatinine Ratio 14.4 (10-20) Glucose 182 H (70-99) mg/dl POC Glucose (70-99) POC Glucose (other) 185 H (70-99) mg/dl Estimat Average Glucose mg/dl Hemoglobin A1c (4.5-5.6) % Calcium 9.8 (8.5-10.1) mg/dl POC Ioniz Calcium Julio Cesar 1.15 (1.12-1.32) mmol/l Phosphorus (2.5-4.9) mg/dl Magnesium 2.1 (1.8-2.4) mg/dl Total Bilirubin 1.3 H (0.2-1) mg/dl AST 23 (15-37) U/L ALT 17 (12-78) U/L Alkaline Phosphatase 74 (45-117) U/L Troponin I < 0.015 (0-0.045) ng/ml Total Protein 8.1 (6.4-8.2) gm/dl Albumin 3.9 (3.4-5.0) gm/dl Globulin 4.2 H (2.5-4.0) gm/dl Albumin/Globulin Ratio 0.9 (0.9-2) Triglycerides (0-150) mg/dl Cholesterol (0-200) mg/dl LDL Cholesterol, Calc mg/dl VLDL Cholesterol, Calc mg/dl HDL Cholesterol mg/dl Cholesterol/HDL Ratio Procalcitonin (0-0.5) ng/ml TSH (0.300-4.500) uIu/ml Nasal Screen MRSA (PCR) (Negative) Blood Type O Positive Antibody Screen NEGATIVE 10/19/19 10/19/19 Range/Units 23:38 23:38 WBC 11.16 H (4.8-10.8) K/uL RBC 4.52 (4.2-5.4) M/uL Hgb 13.5 (12.0-16.0) g/dL POC Hgb (12.0-16.0) g/dl Hct 41.2 (37-47) % POC Hct (37-47) % MCV 91.2 (80-100) fL MCH 29.9 (25-34) pg MCHC 32.8 (32-36) g/dL RDW Std Deviation 49.7 H (36.4-46.3) fL RDW Coeff of Stanford 14.9 H (11.5-14.5) % Plt Count 156 (130-400) K/uL MPV 10.2 (7.4-10.4) fL Immature Gran % (Auto) 0.2 % Neut % (Auto) 68.4 % Lymph % (Auto) 22.9 % [place] % (Auto) 7.3 % Eos % (Auto) 1.0 % Baso % (Auto) 0.2 % Immature Gran # (Auto) 0.02 (0.00-0.02) K/uL Neut # (Auto) 7.64 H (1.4-6.5) K/uL Lymph # (Auto) 2.56 (1.2-3.4) K/uL [place] # (Auto) 0.81 H (0.11-0.59) K/uL Eos # (Auto) 0.11 (0-0.5) K/uL Baso # (Auto) 0.02 (0-0.2) K/uL PT 11.8 (9.0-12.0) Seconds INR 1.2 H (0.9-1.1) APTT 26.3 (21.0-31.0) Seconds PTT Ratio 1.0 POC Sodium (135-144) mEq/L Sodium (136-145) mmol/L POC Potassium (3.3-5.0) mEq/L Potassium (3.5-5.1) mmol/L POC Chloride (101-112) mEq/L Chloride (98-107) mmol/L Carbon Dioxide (21-32) mmol/L POC Total CO2 (24-31) mEq/l Anion Gap (3-11) POC Anion Gap (16-25) mmol/L POC BUN (7-18) mg/dl BUN (7-18) mg/dl Creatinine (0.6-1.2) mg/dl POC Creatinine (0.6-1.3) mg/dl Est Cr Clr Drug Dosing ml/min Est GFR ( Amer) Est GFR (Non-Af Amer) BUN/Creatinine Ratio (10-20) Glucose (70-99) mg/dl POC Glucose (70-99) POC Glucose (other) (70-99) mg/dl Estimat Average Glucose mg/dl Hemoglobin A1c (4.5-5.6) % Calcium (8.5-10.1) mg/dl POC Ioniz Calcium Julio Cesar (1.12-1.32) mmol/l Phosphorus (2.5-4.9) mg/dl Magnesium (1.8-2.4) mg/dl Total Bilirubin (0.2-1) mg/dl AST (15-37) U/L ALT (12-78) U/L Alkaline Phosphatase (45-117) U/L Troponin I (0-0.045) ng/ml Total Protein (6.4-8.2) gm/dl Albumin (3.4-5.0) gm/dl Globulin (2.5-4.0) gm/dl Albumin/Globulin Ratio (0.9-2) Triglycerides (0-150) mg/dl Cholesterol (0-200) mg/dl LDL Cholesterol, Calc mg/dl VLDL Cholesterol, Calc mg/dl HDL Cholesterol mg/dl Cholesterol/HDL Ratio Procalcitonin (0-0.5) ng/ml TSH (0.300-4.500) uIu/ml Nasal Screen MRSA (PCR) (Negative) Blood Type Antibody Screen Medications Administered Current Inpatient Medications Famotidine 20 mg/ Syringe 5 mls @ 2.5 mls/min IV Q12H [facility] Stop: 11/19/19 03:59 Last Admin: 10/20/19 04:06 Dose: 2.5 mls/min Documented by: Parenteral Electrolytes (Normosol-R) 1,000 mls @ 80 mls/hr IV .[id number] [facility] Stop: 11/19/19 02:59 Last Admin: 10/20/19 03:03 Dose: 80 mls/hr Documented by: Vancomycin HCl 1,500 mg/ (Sodium Chloride) 530 mls @ 200 mls/hr IV Q18H [facility] Stop: 10/27/19 21:59 Ertapenem 1,000 mg/ Sodium (Chloride) 60 mls @ 120 mls/hr IV Q24H [facility] Stop: 10/25/19 08:29 Last Admin: 10/20/19 09:48 Dose: 120 mls/hr Documented by: Ioversol (Optiray 320 125ml) 117 ml IV ONCE PRN PRN Reason: Interaction Checking Stop: 10/23/19 23:49 Last Admin: 10/19/19 23:51 Dose: 117 ml Documented by: Miscellaneous (Icu Protocol For Hyperglycemia) 1 ea N/A PRN PRN; Protocol PRN Reason: Hyperglycemia Protocol Stop: 10/22/19 02:45 Miscellaneous Information (Pharmacist Discharge Med Rec Consult) 1 ea N/A UD PRN PRN Reason: Consult Stop: 11/19/19 02:50 Miscellaneous Information (Consult) 1 ea N/A UD PRN PRN Reason: Consult Stop: 11/19/19 03:06
[2019-10-20] MEDS: LABETALOL HCL IV 5 MG/ML 20ML IV PRN ×3 (10:33→15:28)
--- NOTE | 2019-10-20 10:53 | Infectious Disease Consult ---
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 afebrile. undergoing care for cva. History of Present Illness Attending Physician: Gonzalo Liao DO pt admitted with unresponsiveness noted at snf. found to have cva s/p tpa. lethergic on my exam, unable to obtain ROS. afebrile since admission, wbc 11. creat 0.7. CXR negative for infiltrate. ID consulted for uti, placed on vanco and ertapenem. no micro to review. Last + urine culture from 10/2018. No UA at this time. 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 Allergies Allergy/AdvReac Type Severity Reaction Status Date / Time No Known Allergies Allergy Unverified 10/20/19 00:15 Home Medications Home Medications Medication Instructions Recorded Confirmed Type amoxicillin 2,000 mg PO DIRECTED 09/27/18 10/20/19 History glipizide 5 mg PO BID 09/27/18 10/19/19 History losartan 12.5 mg PO DAILY 09/27/18 10/19/19 History metoprolol tartrate 25 mg PO BID 09/27/18 10/20/19 History polyethylene glycol 3350 [Miralax] 17 g PO DAILY PRN 10/19/19 10/19/19 History Cavilon Af 1 applic TOPICAL AMHS 10/20/19 10/20/19 History acetaminophen 650 mg PO DAILY 10/20/19 10/20/19 History acetaminophen 650 mg PO Q6H PRN 10/20/19 10/20/19 History acetaminophen 650 mg PO Q6H PRN MDD 3g/24hr 10/20/19 10/20/19 History xjkfgopx-ngikunerlag-kambt, wh 1 applic TOPICAL HS 10/20/19 10/20/19 History [Moisturizing Cream] lanolin vhbaija-fj-f.pet-ceres 1 applic TOPICAL AMPM 10/20/19 10/20/19 History [Eucerin] menthol-zinc oxide [Calmoseptine] 1 applic TOPICAL QS 10/20/19 10/20/19 History muqjpqavsazc-By-rhsl-minerals 1 tab PO DAILY 10/20/19 10/20/19 History [Multiple Vitamin, Womens] omeprazole 20 mg PO DAILY 10/20/19 10/20/19 History ondansetron HCl 4 mg PO Q8 PRN 10/20/19 10/20/19 History Patient History Medical History Hyperlipidemia (Chronic) Hypertension (Chronic) Osteoporosis (Chronic) Paroxysmal A-fib (Chronic) Recurrent urinary tract infection (Chronic) Rheumatic valvular disease (Chronic) Stroke (cerebrum) Type 2 diabetes mellitus (Chronic) Surgical History S/P cataract surgery Status post aortic valve replacement (Chronic) Family History Mother , age 92 Hypertension Father , age 95 No problems noted. 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 Feels Safe at Home: Yes Safety Concerns: Feels Safe At This Time Smoking Status: Never smoker Hx Alcohol Use: No Hx Substance Use: No Review of Systems Review of Systems: Unobtainable due to cognitive status Physical Exam Constitutional: WD/WN, vitals as above ENMT: external ear and nose normal, oropharynx normal Neck: normal visual inspection Respiratory: normal respiratory effort, lungs clear to auscultation Cardiovascular: RRR, no murmur, no edema Gastrointestinal (Abdomen): normal bowel sounds, soft, nontender, no hepatosplenomegaly Musculoskeletal: Head/Neck/Chest: + head abnormal to inspection, normocephalic and head atraumatic Skin: no rashes, warm and dry Psychiatric: lethargic Results & Data Vital Signs (Past 12 Hours) Vital Signs Temp Pulse Pulse Resp BP BP Pulse Ox 10/20/19 10:15 93 H 158/119 H 97 10/20/19 10:00 88 97 10/20/19 09:45 99 H 176/105 H 96 10/20/19 09:30 93 H 97 10/20/19 09:16 104 H 97 10/20/19 09:15 118 H 164/113 H 97 10/20/19 08:45 115 H 178/104 H 97 10/20/19 08:15 109 H 20 178/104 H 97 10/20/19 07:45 110 H 149/104 H 96 10/20/19 07:15 100 H 164/102 H 97 10/20/19 06:45 108 H 18 134/99 97 10/20/19 06:15 103 H 16 136/94 97 10/20/19 05:48 101 H 16 154/96 H 96 10/20/19 05:15 36.6 C 120 H 18 130/109 H 96 10/20/19 04:46 108 H 18 158/107 H 96 10/20/19 04:30 113 H 95 10/20/19 04:17 36.8 C 132 H 16 125/108 H 95 10/20/19 04:05 124 H 145/116 H 10/20/19 04:00 117 H 97 10/20/19 03:50 128 H 18 145/116 H 98 10/20/19 03:45 115 H 18 152/126 H 95 10/20/19 03:30 129 H 95 10/20/19 03:16 101 H 96 10/20/19 03:15 120 H 16 143/105 H 96 10/20/19 03:00 104 H 96 10/20/19 02:45 107 H 16 109/83 95 10/20/19 02:24 126 H 10/20/19 02:15 37.0 C 110 H 18 154/97 H 91 10/20/19 02:05 110 H 18 154/92 H 94 10/20/19 02:01 110 H 108/80 94 10/20/19 02:00 103 H 94 10/20/19 01:50 122 H 94 10/20/19 01:45 104 H 131/93 93 10/20/19 01:40 110 H 131/93 95 10/20/19 01:31 99 H 122/89 93 10/20/19 01:30 95 H 122/89 92 10/20/19 01:20 109 H 93 10/20/19 01:17 109 H 93 10/20/19 01:16 98 H 112/75 96 10/20/19 01:10 100 H 94 10/20/19 01:01 99 H 123/87 94 10/20/19 01:00 111 H 123/87 92 10/20/19 00:50 97 H 93 10/20/19 00:47 105 H 94 10/20/19 00:46 114 H 140/88 94 10/20/19 00:40 101 H 95 10/20/19 00:32 101 H 93 10/20/19 00:31 99 H 126/84 93 10/20/19 00:30 102 H 93 10/20/19 00:20 117 H 94 10/20/19 00:16 115 H 129/85 95 10/20/19 00:10 104 H 93 10/20/19 00:07 110 H 141/72 H 94 10/20/19 00:04 121 H 152/117 H 96 10/20/19 00:03 115 H 169/100 H 96 10/20/19 00:00 127 H 96 10/19/19 23:59 123 H 96 10/19/19 23:58 106 H 178/145 H 96 10/19/19 23:57 102 H 20 95 PG Care Time/CCT Total # of Minutes Spent Total Time Spent with Patient: Total time spent is greater than 50% in coordination of care (as documented) at patient's floor/unit and/or counseling patient:
[2019-10-20] MEDS ORDERED: LABETALOL HCL IV 5 MG/ML 20ML IV STA ×2 (10:56→14:06)
[2019-10-20] MEDS ORDERED: PHARMACY GLYCEMIC MGMT CONSULT PRN (11:07)
[2019-10-20] MEDS ORDERED: INSULIN GLARGINE SOLOSTAR 100 UNITS/ML 3 ML PEN SC ONE (12:00)
--- NOTE | 2019-10-20 12:08 | Pharmacy Report ---
Pharmacy Glycemic Short Note 2 - Date of Service October 20, 2019 - Glycemic Short BSG Results (Last 24 hours): 10/19/19 10/19/19 10/19/19 23:38 23:39 23:58 Glucose 182 H POC Glucose 168 H POC Glucose (other) 185 H 10/20/19 05:43 Glucose 170 H POC Glucose POC Glucose (other) OUTPATIENT ANTIDIABETIC REGIMEN: * Glipizide 5mg PO BID * A1c = 6.0% 10/20/19 ASSESSMENT: * Type 2 diabetic admitted for embolic stroke in the setting of a fib. She did receive tPA in the ED. * Patient remains NPO at this time * BSGs have been in the 160-180's range * Will initiate basal/bolus regimen based upon weight: basal insulin doses based on "mild" stress given current BSGs and NPO status; rapid acting insulin doses based on "moderate" stress PLAN FOR INPATIENT GLYCEMIC CONTROL: * Hold outpatient oral diabetes medications (glipizide) * Basal insulin * Lantus 9 units SQ BID * Bolus insulin * NovoLog per scale Q 4 hrs initially * Goal Range: Low 110 mg/dL - High 140 mg/dL * Correction Factor: 25 mg/dL/unit * Nutritional / Prandial insulin per carb ratio of 1 unit per 8 grams CHO consumed PLAN FOR DISCHARGE: * to be determined, however given her A1c result - one may consider resuming her glipizide on discharge if she is not experiencing hypoglycemic episodes with this regimen.
[2019-10-20] MEDS: INSULIN ASPART 100 UNITS/ML 3 ML PEN SC SCH ×3 (12:15→20:00)
[2019-10-20] MEDS ORDERED: DEXTROSE 50% 50 ML SYRINGE IV PRN (12:30)
[2019-10-20] MEDS ORDERED: GLUCOSE 40% GEL 15 GM TUBE PO PRN (12:30)
[2019-10-20] MEDS ORDERED: GLUCOSE 10 TABS/TUBE PO PRN (12:30)
[2019-10-20] MEDS ORDERED: CARBOHYDRATES FOR HYPOGLYCEMIA PO PRN (12:30)
[2019-10-20] MEDS ORDERED: GLUCAGON FOR INJ 1 MG VIAL IM PRN (12:30)
--- NOTE | 2019-10-20 13:04 | Magnetic Resonance Report ---
MR brain wo con CLINICAL HISTORY: 84 years-old Female presenting with stroke, slurred speech, symptoms began at 11:00 PM last night. TECHNIQUE: Multisequence, multiplanar MR imaging of the brain was performed without the use of intrav enous contrast. IV contrast: None. COMPARISON: None. FINDINGS: Localizer images: Unremarkable. Bone marrow signal intensity within the calvarium within normal limits. Normal midline sagittal structures. Proportional ventricular and sulcal prominence, likely age-relate d parenchymal volume loss. No mass effect or midline shift. Restricted diffusion in the right putamen and right periventricular white matter. No hemorrhage. Severe periventricular and subcortical white matter T2/FLAIR hyperintensity, nonspecific but likely indicative of chronic small vessel ischemic ch anders. No extra-axial fluid collection. T2 skull base flow voids preserved. Bilateral false pass lenses are abse nt. IMPRESSION: 1. Acute infarct in the right basal ganglia and periventricular white matter. 2. Severe chronic small vessel ischemic change. The report will be called/faxed according to standard departmental protocol for a critical finding. Electronically signed by: Demarcus Boykin M.D. 10/20/2019 1:03 PM
[2019-10-20] MEDS ORDERED: Nursing to Pharmacy Communication ONE (14:01)
--- NOTE | 2019-10-20 15:28 | History & Physical Bridge Note ---
Date of Service October 20, 2019 History & Physical Bridge Note I have examined the patient, reviewed the History & Physical and in the interval since the performance of the History & Physical I have noted the following changes of clinical significance: patient examined in ICU, having left sided neglect, not moving left side when asked, she is moving right side tongue appears deviated to the left, having dysarthria less responsive this afternoon had a felipe conversation with two sons and grand daughter at the bedside this afternoon discussed that the patient may have a very poor prognosis the MRI shows stoke in right basal ganglia and right periventricular white matter also shows a lot of chronic ischemic changes RN continues to give Labetalol PRN for elevated diastolic pressures asked the family to reach out to other family members because the patient does NOT have a living will told them that they need to determine what the patient would want done first, they need to determine code status second, if she cannot swallow, would she want a PEG tube told them that it is early but at this point she did not have a profound response to the tPA will follow up with them in the morning
[2019-10-20] MEDS ORDERED: INSULIN GLARGINE SOLOSTAR 100 UNITS/ML 3 ML PEN SC SCH (21:00)
[2019-10-20] MEDS ORDERED: VANCOMYCIN HCL 1,500 MG in SODIUM CHLORIDE 0.9% 500 ML IV SCH (22:00)
[2019-10-21] MEDS: INSULIN ASPART 100 UNITS/ML 3 ML PEN SC SCH ×6 (00:15→23:52)
[2019-10-21] MEDS: NORMOSOL-R 1,000 ML IV SCH (04:18)
[2019-10-21] MEDS: FAMOTIDINE 20 MG in SYRINGE 3 ML IV SCH (04:26)
[2019-10-21] MEDS: LABETALOL HCL IV 5 MG/ML 20ML IV PRN (04:58)
[2019-10-21 06:29] LABS: Basophils # (auto) 0.04 K/uL (0-0.2); Basophils % (auto) 0.4 %; Eosinophils # (auto) 0.18 K/uL (0-0.5); Eosinophils % (auto) 1.9 %; Hematocrit (blood only) 36.4 % (37-47); Hemoglobin 11.8 g/dL (12.0-16.0); Immature Granulocytes # (auto) 0.02 K/uL (0.00-0.02); Immature Granulocytes % (auto) 0.2 %; Lymphocytes # (auto) 2.42 K/uL (1.2-3.4); Mean Corpuscular Hemoglobin 29.4 pg (25-34); Mean Corpuscular Hgb Conc 32.4 g/dL (32-36); Mean Corpuscular Volume 90.5 fL (80-100); Mean Platelet Volume 10.5 fL (7.4-10.4); Monocytes # (auto) 0.93 K/uL (0.11-0.59); Monocytes % (auto) 9.6 %; Neutrophils % (auto) 62.9 %; Platelet Count 123 K/uL (130-400); RDW Coefficient of Variation 15.1 % (11.5-14.5); RDW Standard Deviation 49.8 fL (36.4-46.3); Red Blood Count 4.02 M/uL (4.2-5.4); White Blood Count 9.69 K/uL (4.8-10.8)
--- NOTE | 2019-10-21 06:29 | CT Scan Report ---
CT head/brain wo con CLINICAL HISTORY: Repeat head CT status post TPA. Evaluate for acute hemorrhage. COMPARISON STUDY: 10/19/2019, MRI the brain dated 10/20/2019 TECHNIQUE: Axial CT of the brain is performed from the vertex to the skull base. IV contrast was not administered for this examination. A dose lowering technique was utilized adhering to the principles of ALARA. CT DOSE: 1074.96 mGy.cm FINDINGS: No intra or extra-axial mass lesions are visualized. There is no CT evidence of acute cortical infarc tion. There is no evidence of midline shift. There is no acute hemorrhage. No calvarial fractures ar e visualized. There are severe white matter hypodensities likely on a small vessel basis. 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 There is no evidence of pathologic ventricular dilatation. There is no evidence of acute sinusitis IMPRESSION: No acute intracranial findings. No evidence of intracranial hemorrhage. Electronically signed by: Vasu Colón M.D. 10/21/2019 6:28 AM
[2019-10-21] MEDS: ERTAPENEM SODIUM 1,000 MG in SODIUM CHLORIDE 0.9% 50 ML IV SCH (08:22)
[2019-10-21 08:32] LABS: iSTAT Allen Test Pass; iSTAT Arterial Blood Gas HCO3 22 meg/L (19-24); iSTAT Arterial Blood Gas pCO2 33 mmHg (35-46); iSTAT Arterial Blood Gas pH 7.42 (7.35-7.45); iSTAT Arterial Blood Gas pO2 71 mmHg (80-95); iSTAT Carbon Dioxide 23 mEq/l (24-31); iSTAT Site R Radial
--- NOTE | 2019-10-21 08:59 | Critical Care Progress Note ---
Date of Service October 21, 2019 Assessment & Plan (1) Admitted to intensive care unit: Reason Critically Ill: 84-year-old female presents from [facility] found to have acute stroke, TPA administered and transferred to ICU Neuro - Acute strokeCTA head and neck showed 9 mm thrombus in M1 segment of R MCA and occlusion of V4 segment of right vertebral artery -TPA administered at 10/20 0015 -Emergency department consulted [facility] urgent neurologist in [place] to consider thrombectomy, did not feel that patient would benefit per conversation with ER physician -Neurology consulted, following recommendations -Day 2 TPA protocol -Frequent neuro checks -Speech, PT, OT consulted -failed swallow study -will need ng tube for meds and nutrition -Follow-up echo -Follow-up TSH, lipid profile, hemoglobin A1c -stable for downgrade Cardiac - PAFpatient with history however not anticoagulated, currently in A. fib on this admission -was controlling rate with IV MTP, will use with caution in order to promote permissive hypertension following CVA -added labetalol for htn -Troponin negative -Continue to monitor on telemetry -Goal to rate control with heart rate less than 110 considering possibility of right atrial thrombus source for stroke, will not attempt to convert to sinus at this time HTNholding oral anticoagulations for now, will continue IV beta-renetta as needed History of AVR Respiratory - Currently maintaining oxygen saturations on 2 L nasal cannula CXR appears to be consistent with pulmonary edema GI - N.p.o. for now, failed swallow study -will place ng tube for nutrition and medications RENAL/LYTES - Creatinine stable, monitor routine BMPs and replete electrolytes as necessary - Foleystrict I's and O's Urinary tract infectionsee ID below ENDO - Diabetes type 2patient on orals for home dose, hemoglobin A1c pending -We will transition to sliding scale -ICU hyperglycemic protocol Follow-up TSH, T4 HEME - H&H stable, monitor routine CBCs ID - Uncomplicated UTIpatient has history of multiple UTIs, history of multidrug-r esistant E. coli but negative on last culture -Urine culture pending, UA positive for bacteria +2 -Patient remains afebrile, WBC 11,000, procalcitonin pending -MRSA positive -Started on Ertaenem, -ID consulted -f/u cultures LINES/IV ACCESS - Peripheral IVs DVT PROPHYLAXIS - SCDs, holding anticoagulation following TPA administration Dispo: stable for downgrade Thank you for allowing us to participate in the care of this patient. Please refer to my attending physician's documentation for any further recommendations. (2) Atrial fibrillation with rapid ventricular response: (3) Embolic stroke involving right middle cerebral artery: (4) DVT prophylaxis: (5) Morbid obesity: (6) Ambulatory dysfunction: (7) Abnormal head CT: (8) Elevated troponin: (9) Hyperlipidemia: (10) Osteoporosis: (11) Status post aortic valve replacement: (12) Type 2 diabetes mellitus: Supervising Physician Co-Signing Physician Notes Dr. Morales was the resident-physician during care of patient. I separately evaluated patient for leon portions of the history and the exam. I was present during the critical portion of medical decision making, and I discussed the case with the resident. I generally agree with the findings and plan except for any additions/exceptions noted. Patient was a bit difficult to arouse this morning and we did obtain a blood gas which did not demonstrate any evidence of hypercapnia. She did wake eventually. I think she has some degree of hypoactive delirium which is improving this afternoon. Follow-up her electrolytes, proBNP. I am giving her 20 mg of IV Lasix as her urine output is a bit sluggish and her echo does demonstrate some degree of mitral valve pathology and systolic dysfunction. We are also restarting her metoprolol and lisinopril given that her blood pressure and heart rate are starting to creep up. We have placed an NG tube and we will continue aspirin through the NG tube. We are also starting her on atorvastatin and Lovenox. She did have a large stroke with an MRI completed. Neurology is following. She needs continued speech and physical therapy. Her baseline is quite poor and I did discuss yesterday with the family regarding more palliative options. They will discuss amongst themselves and get back to the providers. 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 Infectious disease on board. Continue antibiotics until cultures come back. I think she is safe to be transferred to the floor with telemetry at this time. Subjective Initially this morning when we came to the room the patient was lying in bed obtunded, unresponsive. We obtained a blood gas which was within normal limits. In the interim the patient became increasingly more responsive. She states she is "difficult to wake up ". She is able to move the right side of her body, unable to move the left side this morning however she could be brought groggy. Primary team is discussing CODE STATUS with the family will be updated later today. Patient has been doing well overnight, making urine, stooling, sleeping, she is unable to swallow. Will be placing an NG tube to provide nutrition and medication. Acute concerns at present related to CODE STATUS, all questions answered. Physical Exam Physical Exam: Eyes: PERRL; no nystagmus Right-sided deviated gaze ENMT: Left-sided facial droop, dysarthria, impaired swallow Neck: trachea midline, no thyromegaly Respiratory: normal respiratory effort, lungs clear to auscultation Cardiovascular: Rate/Rhythm: + irregularly irregular Vessels: no JVD Extremities: normal capillary refill; no edema Atrial fibrillation on monitor Gastrointestinal (Abdomen): Abdomen obese, nontender, bowel sounds auscultated all 4 quadrants Skin: no rashes, warm and dry Neurologic: Left hemineglect and weakness in left upper and lower extremities, left sided facial droop, dysarthria, right deviated gaze. PERRLA, cough gag and corneal intact, alert and oriented x3 Psychiatric: A+Ox3, euthymic affect Genitourinary: Indwelling Wilder catheter present Results & Data Vital Signs (Past 12 Hours) Vital Signs Temp Pulse Pulse Resp BP BP Pulse Ox 10/21/19 08:00 37.7 C H 10/21/19 06:15 109 H 27 H 153/109 H 96 10/21/19 05:46 110 H 35 H 140/103 H 97 10/21/19 05:19 117 H 28 H 149/106 H 95 10/21/19 05:09 121 H 127/99 94 10/21/19 04:57 134 H 165/111 H 95 10/21/19 04:16 115 H 158/99 H 95 10/21/19 04:00 104 H 18 96 10/21/19 03:46 112 H 15 150/85 H 98 10/21/19 03:16 108 H 18 146/89 H 97 10/21/19 03:00 112 H 96 10/21/19 02:46 115 H 137/86 96 10/21/19 02:16 110 H 132/88 96 10/21/19 02:03 114 H 144/82 H 96 10/21/19 01:48 118 H 150/108 H 10/21/19 00:16 36.6 C 106 H 154/87 H 95 10/21/19 00:15 96 H 22 154/87 H 95 10/21/19 00:00 107 H 95 10/20/19 23:46 117 H 157/105 H 97 10/20/19 23:45 102 H 96 10/20/19 23:30 115 H 94 10/20/19 23:15 100 H 18 137/90 98 10/20/19 23:00 102 H 10/20/19 22:46 107 H 137/90 10/20/19 22:45 98 H 10/20/19 22:15 105 H 22 155/84 H 95 10/20/19 21:45 103 H 99 10/20/19 21:17 91 H 18 161/102 H 99 10/20/19 21:16 88 153/85 H 99 10/20/19 21:15 88 18 153/85 H 99 10/20/19 21:00 100 H 100 Laboratory Results 10/21/19 10/21/19 10/21/19 Range/Units 08:18 08:16 06:10 WBC (4.8-10.8) K/uL RBC (4.2-5.4) M/uL Hgb (12.0-16.0) g/dL Hct (37-47) % MCV (80-100) fL MCH (25-34) pg MCHC (32-36) g/dL RDW Std Deviation (36.4-46.3) fL RDW Coeff of Stanford (11.5-14.5) % Plt Count (130-400) K/uL MPV (7.4-10.4) fL Immature Gran % (Auto) % Neut % (Auto) % Lymph % (Auto) % [place] % (Auto) % Eos % (Auto) % Baso % (Auto) % Immature Gran # (Auto) (0.00-0.02) K/uL Neut # (Auto) (1.4-6.5) K/uL Lymph # (Auto) (1.2-3.4) K/uL Radford # (Auto) (0.11-0.59) K/uL Eos # (Auto) (0-0.5) K/uL Baso # (Auto) (0-0.2) K/uL Sample Site R Radial POC pH 7.42 (7.35-7.45) POC pCO2 33 L (35-46) mmHg POC pO2 71 L (80-95) mmHg POC HCO3 22 (19-24) prisca/L POC Total CO2 23 L (24-31) mEq/l POC Base Excess -3.0 (-9-1.8) prisca/L POC ABG O2 Sat 95.0 (90-95) % Rui Test Pass O2 Delivery Device Room Air Creatinine Pending Est Cr Clr Drug Dosing Pending Est GFR ( Amer) Pending Est GFR (Non-Af Amer) Pending POC Glucose 101 H (70-99) 10/21/19 10/21/19 10/21/19 Range/Units 06:03 04:19 00:25 WBC 9.69 (4.8-10.8) K/uL RBC 4.02 L (4.2-5.4) M/uL Hgb 11.8 L (12.0-16.0) g/dL Hct 36.4 L (37-47) % MCV 90.5 (80-100) fL MCH 29.4 (25-34) pg MCHC 32.4 (32-36) g/dL RDW Std Deviation 49.8 H (36.4-46.3) fL RDW Coeff of Stanford 15.1 H (11.5-14.5) % Plt Count 123 L (130-400) K/uL MPV 10.5 H (7.4-10.4) fL Immature Gran % (Auto) 0.2 % Neut % (Auto) 62.9 % Lymph % (Auto) 25.0 % Rad[place] % (Auto) 9.6 % Eos % (Auto) 1.9 % Baso % (Auto) 0.4 % Immature Gran # (Auto) 0.02 (0.00-0.02) K/uL Neut # (Auto) 6.10 (1.4-6.5) K/uL Lymph # (Auto) 2.42 (1.2-3.4) K/uL Radford # (Auto) 0.93 H (0.11-0.59) K/uL Eos # (Auto) 0.18 (0-0.5) K/uL Baso # (Auto) 0.04 (0-0.2) K/uL Sample Site POC pH (7.35-7.45) POC pCO2 (35-46) mmHg POC pO2 (80-95) mmHg POC HCO3 (19-24) prisca/L POC Total CO2 (24-31) mEq/l POC Base Excess (-9-1.8) prisca/L POC ABG O2 Sat (90-95) % Rui Test O2 Delivery Device Creatinine Est Cr Clr Drug Dosing Est GFR ( Amer) Est GFR (Non-Af Amer) POC Glucose 116 H 103 H (70-99) 10/20/19 10/20/19 10/20/19 Range/Units 20:58 16:24 12:14 WBC (4.8-10.8) K/uL RBC (4.2-5.4) M/uL Hgb (12.0-16.0) g/dL Hct (37-47) % MCV (80-100) fL MCH (25-34) pg MCHC (32-36) g/dL RDW Std Deviation (36.4-46.3) fL RDW Coeff of Stanford (11.5-14.5) % Plt Count (130-400) K/uL MPV (7.4-10.4) fL Immature Gran % (Auto) % Neut % (Auto) % Lymph % (Auto) % Rad[place] % (Auto) % Eos % (Auto) % Baso % (Auto) % Immature Gran # (Auto) (0.00-0.02) K/uL Neut # (Auto) (1.4-6.5) K/uL Lymph # (Auto) (1.2-3.4) K/uL Radford # (Auto) (0.11-0.59) K/uL Eos # (Auto) (0-0.5) K/uL Baso # (Auto) (0-0.2) K/uL Sample Site POC pH (7.35-7.45) POC pCO2 (35-46) mmHg POC pO2 (80-95) mmHg POC HCO3 (19-24) prisca/L POC Total CO2 (24-31) mEq/l POC Base Excess (-9-1.8) prisca/L POC ABG O2 Sat (90-95) % Rui Test O2 Delivery Device Creatinine Est Cr Clr Drug Dosing Est GFR ( Amer) Est GFR (Non-Af Amer) POC Glucose 76 117 H 134 H (70-99) Medications Administered Current Inpatient Medications Aspirin (Aspirin Chew) 81 mg PO DAILY FREDERICK Stop: 11/20/19 08:59 Dextrose (Dextrose 50%) 25 - 50 ml IV UD PRN; Protocol PRN Reason: Hypoglycemia Protocol Stop: 11/19/19 12:29 Enoxaparin Sodium (Lovenox) 30 mg SQ Q12H FREDERICK Stop: 11/20/19 07:59 Glucagon (Glucagen) 1 mg IM UD PRN; Protocol PRN Reason: Hypoglycemia Protocol Stop: 11/19/19 12:29 Glucose (Glucose 40%) 15 - 30 gm PO UD PRN; Protocol PRN Reason: Hypoglycemia Protocol Stop: 11/19/19 12:29 Glucose (Dex4 Glucose) 4 - 8 tabs PO UD PRN; Protocol PRN Reason: Hypoglycemia Protocol Stop: 11/19/19 12:29 Famotidine 20 mg/ Syringe 5 mls @ 2.5 mls/min IV Q12H FREDERICK Stop: 11/19/19 03:59 Last Admin: 10/21/19 04:26 Dose: 2.5 mls/min Documented by: Parenteral Electrolytes (Normosol-R) 1,000 mls @ 80 mls/hr IV .[id number] FREDERICK Stop: 11/19/19 02:59 Last Admin: 10/21/19 04:18 Dose: 80 mls/hr Documented by: Vancomycin HCl 1,500 mg/ (Sodium Chloride) 530 mls @ 200 mls/hr IV Q18H FREDERICK Stop: 10/27/19 21:59 Last Infusion: 10/21/19 01:00 Dose: Infused Documented by: Ertapenem 1,000 mg/ Sodium (Chloride) 60 mls @ 120 mls/hr IV Q24H FREDERICK Stop: 10/25/19 08:29 Last Admin: 10/21/19 08:22 Dose: 120 mls/hr Documented by: Insulin Aspart (Novolog Flexpen) 0 units SC Q4 FREDERICK Stop: 10/21/19 09:00 Last Admin: 10/21/19 08:21 Dose: Not Given Documented by: Insulin Aspart (Novolog Flexpen) 0 units SC Q6 FREDERICK Stop: 11/20/19 11:59 Ioversol (Optiray 320 125ml) 117 ml IV ONCE PRN PRN Reason: Interaction Checking Stop: 10/23/19 23:49 Last Admin: 10/19/19 23:51 Dose: 117 ml Documented by: Labetalol HCl (Normodyne) 5 mg IV Q4H PRN PRN Reason: SBP > 180 or DBP > 105 Stop: 11/19/19 10:28 Last Admin: 10/21/19 04:58 Dose: 5 mg Documented by: Miscellaneous (Carbohydrates For Hypoglycemia) 15 - 30 gm PO UD PRN PRN Reason: Hypoglycemia Treatment Stop: 11/19/19 12:29 Miscellaneous Information (Pharmacist Discharge Med Rec Consult) 1 ea N/A UD PRN PRN Reason: Consult Stop: 11/19/19 02:50 Miscellaneous Information (Consult) 1 ea N/A UD PRN PRN Reason: Consult Stop: 11/19/19 03:06 Miscellaneous Information (Consult Glycemic Management Pharmacy) 1 ea N/A UD PRN PRN Reason: Consult Stop: 11/19/19 11:06 Resident Activity Tracking Resident Involvement: Resident Care Provided Care Provided: Adult Hospital Medicine (ICU )
[2019-10-21 09:05] LABS: Creatinine Clr Calc Pharmacy 64.6 ml/min; Est GFR (African American) 83.5
--- NOTE | 2019-10-21 09:28 | XRay Report ---
XR KUB/Abdomen 1 view CLINICAL HISTORY: 84 years-old Female presenting with Coresafe placement; NGT. TECHNIQUE: Single supine view of the abdomen was obtained. COMPARISON: CT from 09/27/2018. FINDINGS: Weighted feeding catheter containing guidewire terminates in the gastric body. Nonobstructive bowel g as pattern. No gross pneumoperitoneum align for supine technique. Allowing for bowel gas and stool, no calcifications to suggest nephrolithiasis. Degenerative changes of the spine. Median sternotomy wires and prosthetic aortic valve noted. Minimal right basilar opacity possibly atelectasis. IMPRESSION: 1. Weighted feeding catheter containing guidewire terminates in the gastric body; advancement beyond the pylorus to be considered. Electronically signed by: Demarcus Boykin M.D. 10/21/2019 9:27 AM
[2019-10-21] MEDS: ASPIRIN 81 MG CHEW PO SCH (11:08)
[2019-10-21] MEDS: ENOXAPARIN INJ 30 MG/0.3 ML SYR SQ SCH ×2 (11:08→20:23)
[2019-10-21] MEDS ORDERED: FUROSEMIDE 20 MG in SYRINGE 0 ML IV ONE (11:15)
--- NOTE | 2019-10-21 11:26 | Billing Data ---
Coding Level of Care Code 85271 Subseq Hosp Care Lvl 3
[2019-10-21] MEDS ORDERED: METOPROLOL TARTRATE 25 MG TAB PO SCH (12:00)
[2019-10-21] MEDS: LOSARTAN POTASSIUM 25 MG TAB NG SCH (12:14)
[2019-10-21] MEDS: ATORVASTATIN 20 MG TAB NG SCH (12:14)
[2019-10-21] MEDS ORDERED: IMPACT LIQD 1.0 CAL 1,000 ML BAG NG SCH (12:15)
[2019-10-21 12:19] LABS: BUN Creatinine Ratio 17.8 (10-20); Calcium 8.5 mg/dl (8.5-10.1); Creatinine Clr Calc Pharmacy 68.2 ml/min; Est GFR (African American) 89.1; Est GFR (Non-African American) 76.9; Potassium 3.9 mmol/L (3.5-5.1)
--- NOTE | 2019-10-21 13:35 | Pharmacy Report ---
Pharmacy Glycemic Short Note 2 - Date of Service October 21, 2019 - Glycemic Short BSG Results (Last 24 hours): 10/20/19 10/20/19 10/20/19 12:14 16:24 20:58 Glucose POC Glucose 134 H 117 H 76 10/21/19 10/21/19 10/21/19 00:25 04:19 08:16 Glucose POC Glucose 103 H 116 H 101 H 10/21/19 10/21/19 11:33 12:33 Glucose 107 H POC Glucose 106 H OUTPATIENT ANTIDIABETIC REGIMEN: * Glipizide 5mg PO BID * A1c = 6.0% 10/20/19 ASSESSMENT: 10/21 * Fasting BSG 106 this AM with 9 units basal insulin on board * Pt will have tube feeds started today via NG * Will adjust basal to dose per scale BID as pt appears to require less than "low" stress wt based dose while NPO. Uncertain how well pt will tolerate feeds * TF carbs will be covered with Novolog carb ratio 10/20 * Type 2 diabetic admitted for embolic stroke in the setting of a fib. She did receive tPA in the ED. * Patient remains NPO at this time * BSGs have been in the 160-180's range * Will initiate basal/bolus regimen based upon weight: basal insulin doses based on "mild" stress given current BSGs and NPO status; rapid acting insulin doses based on "moderate" stress PLAN FOR INPATIENT GLYCEMIC CONTROL: * Hold outpatient oral diabetes medications (glipizide) * Basal insulin * Lantus BID per the following scale: * 0 units if less than 110 * 7 units if 110-160 * 14 units if greater than 160 * Bolus insulin * NovoLog per scale Q 4 hrs initially * Goal Range: Low 110 mg/dL - High 140 mg/dL * Correction Factor: 30 mg/dL/unit * Nutritional / Prandial insulin per carb ratio of 1 unit per 10 grams CHO consumed PLAN FOR DISCHARGE: * to be determined, however given her A1c result - one may consider resuming her glipizide on discharge if she is not experiencing hypoglycemic episodes with this regimen.
--- NOTE | 2019-10-21 15:54 | Hospitalist Progress Note ---
Date of Service October 21, 2019 Assessment & Plan (1) Embolic stroke involving right middle cerebral artery: acute clot in the M1 distribution of MCA MRI brain shows acute ischemic stroke in right basal ganglia and periventricular white matter on right side also shows a significant chronic ischemic changes from vascular disease initially had a response to tPA with some movement in left arm and leg however, later in the day on 10/20 she was exhibiting left side neglect and no movement on left side still with dysarthria, dysphagia started on aspirin, statin via NGT that was placed 10/21 enteral feedings via NGT no hemorrhagic conversion on CT head 10/21 however, with worsening clinical status, Dr. Colvin would like to get MRI brain if no hemorrhage then will start Apixiban poor/guarded prognosis have discussed with family difficult situation, no living will or designated power of medical administrative specialist she has 9 children and many grandchildren, all who are giving their input will need to have a conversation tomorrow, likely involve palliative care downgrade to PCU today (2) Atrial fibrillation with rapid ventricular response: in RVR today increased metoprolol to 25mg TID echo with EF of 45%, no obvious intracardiac thrombus needs anticoagulation will start Apixiban if no hemorrhage on repeat MRI brain (3) Paroxysmal A-fib: noted to have this in her history unclear as to why she was not on anticoagulation she was a fall risk in the past so that may have been why (4) Type 2 diabetes mellitus: Holding glipizide. Placed on Accu-Cheks before meals and at bedtime with NovoLog coverage for scale monitor for hypoglycemia on tube feeds (5) Hyperlipidemia: LDL at goal continue statin therapy for acute stroke (6) Recurrent urinary tract infection: Previous infections including ESBL E. coli, and enterococcus. Urinalysis looks infected. no growth on cultures stop antibiotics (7) Ambulatory dysfunction: Patient was noted to have ambulatory dysfunction prior to acute onset of CVA. certainly will make her recovery more difficult if she survives stroke then would plan to return to SNF for 24 hour care (8) Status post aortic valve replacement: Echocardiogram shows AV in good position Subjective patient with left sided neglect again today speaking, can understand some of her words she is oriented, knows she is in hospital, knows it is October 2019, knows her family members not safe to swallow, tongue still deviated not moving left side discussed with Dr. Colvin, she would like to repeat MRI brain, if no bleeding then start Apixiban more tachycardia and hypertension today, metoprolol resumed via NGT and increased to [address] Thomas, patient can be transferred to PCU discussed with family again today, they need to determine goals of care, how much does mom want done will have palliative care see patient tomorrow will attempt a family meeting with patient and family to discuss potential poor prognosis reviewed repeat CT head, no hemorrhage after tPA yesterday Review of Systems Review of Systems: Unobtainable due to reduced consciousness Physical Exam Constitutional: WD/WN, vitals as above + ill appearing and + lethargic Eyes: PERRL, conjunctivae normal, anicteric sclerae ENMT: external ear and nose normal, oropharynx normal Neck: trachea midline, no thyromegaly Respiratory: normal respiratory effort, lungs clear to auscultation (decreased in bases) Cardiovascular: Rate/Rhythm: + tachycardic and + irregularly irregular Heart Sounds: normal S1 and normal S2; no murmur Vessels: no JVD Extremities: normal capillary refill; no edema Gastrointestinal (Abdomen): normal bowel sounds, soft, nontender, no hepatosplenomegaly Musculoskeletal: Head/Neck/Chest: normocephalic and head atraumatic Extremities: extremities normal to inspection and + abnormal strength (no movement left arm/hand, left leg/foot) Skin: no rashes, warm and dry Neurologic: + focal motor deficit (left side paralysis) Speech / Cognition: + abnormal speech (dysarthric) Motor/Sensory: no pronator drift and no asterixis Cranial Nerves: PERRL and symmetric palate elevation; + tongue not midline (deviated left) Psychiatric: Orientation: oriented x 3; + not alert Lymphatic: no cervical or axillary lymphadenopathy Results & Data Vital Signs (Past 12 Hours) Vital Signs Temp Pulse Resp BP Pulse Ox 10/21/19 14:47 115 H 23 131/113 H 95 10/21/19 13:46 88 17 105/59 L 94 10/21/19 12:46 101 H 33 H 130/62 94 10/21/19 11:46 112 H 17 131/89 94 10/21/19 10:46 107 H 20 127/73 95 10/21/19 09:46 101 H 22 153/87 H 97 10/21/19 08:00 37.7 C H 114 H 36 H 149/102 H 92 10/21/19 07:00 104 H 22 156/101 H 98 10/21/19 06:15 109 H 27 H 153/109 H 96 10/21/19 05:46 110 H 35 H 140/103 H 97 10/21/19 05:19 117 H 28 H 149/106 H 95 10/21/19 05:09 121 H 127/99 94 10/21/19 04:57 134 H 165/111 H 95 10/21/19 04:16 115 H 158/99 H 95 10/21/19 04:00 104 H 18 96 Laboratory Results Laboratory Results - last 24 hr 10/20/19 10/20/19 10/21/19 16:24 20:58 00:25 WBC RBC Hgb Hct MCV MCH MCHC RDW Std Deviation RDW Coeff of [place] Plt Count MPV Immature Gran % (Auto) Neut % (Auto) Lymph % (Auto) [place] % (Auto) Eos % (Auto) Baso % (Auto) Immature Gran # (Auto) Neut # (Auto) Lymph # (Auto) [place] # (Auto) Eos # (Auto) Baso # (Auto) Sample Site POC pH POC pCO2 POC pO2 POC HCO3 POC Total CO2 POC Base Excess POC ABG O2 Sat Rui Test O2 Delivery Device Sodium Potassium Chloride Carbon Dioxide Anion Gap BUN Creatinine Est Cr Clr Drug Dosing Est GFR ( Amer) Est GFR (Non-Af Amer) BUN/Creatinine Ratio Glucose POC Glucose 117 H 76 103 H Calcium NT-Pro-B Natriuret Pep 10/21/19 10/21/19 10/21/19 04:19 06:03 06:10 WBC 9.69 RBC 4.02 L Hgb 11.8 L Hct 36.4 L MCV 90.5 MCH 29.4 MCHC 32.4 RDW Std Deviation 49.8 H RDW Coeff of [place] 15.1 H Plt Count 123 L MPV 10.5 H Immature Gran % (Auto) 0.2 Neut % (Auto) 62.9 Lymph % (Auto) 25.0 [place] % (Auto) 9.6 Eos % (Auto) 1.9 Baso % (Auto) 0.4 Immature Gran # (Auto) 0.02 Neut # (Auto) 6.10 Lymph # (Auto) 2.42 [place] # (Auto) 0.93 H Eos # (Auto) 0.18 Baso # (Auto) 0.04 Sample Site POC pH POC pCO2 POC pO2 POC HCO3 POC Total CO2 POC Base Excess POC ABG O2 Sat Rui Test O2 Delivery Device Sodium Potassium Chloride Carbon Dioxide Anion Gap BUN Creatinine 0.76 Est Cr Clr Drug Dosing 64.6 Est GFR ( Amer) 83.5 Est GFR (Non-Af Amer) 72.0 BUN/Creatinine Ratio Glucose POC Glucose 116 H Calcium NT-Pro-B Natriuret Pep 10/21/19 10/21/19 10/21/19 08:16 08:18 11:33 WBC RBC Hgb Hct MCV MCH MCHC RDW Std Deviation RDW Coeff of [place] Plt Count MPV Immature Gran % (Auto) Neut % (Auto) Lymph % (Auto) [place] % (Auto) Eos % (Auto) Baso % (Auto) Immature Gran # (Auto) Neut # (Auto) Lymph # (Auto) [place] # (Auto) Eos # (Auto) Baso # (Auto) Sample Site R Radial POC pH 7.42 POC pCO2 33 L POC pO2 71 L POC HCO3 22 POC Total CO2 23 L POC Base Excess -3.0 POC ABG O2 Sat 95.0 Rui Test Pass O2 Delivery Device Room Air Sodium 140 Potassium 3.9 Chloride 108 H Carbon Dioxide 25 Anion Gap 7.0 BUN 13 Creatinine 0.72 Est Cr Clr Drug Dosing 68.2 Est GFR ( Amer) 89.1 Est GFR (Non-Af Amer) 76.9 BUN/Creatinine Ratio 17.8 Glucose 107 H POC Glucose 101 H Calcium 8.5 NT-Pro-B Natriuret Pep 2435 H 10/21/19 12:33 WBC RBC Hgb Hct MCV MCH MCHC RDW Std Deviation RDW Coeff of [place] Plt Count MPV Immature Gran % (Auto) Neut % (Auto) Lymph % (Auto) [place] % (Auto) Eos % (Auto) Baso % (Auto) Immature Gran # (Auto) Neut # (Auto) Lymph # (Auto) [place] # (Auto) Eos # (Auto) Baso # (Auto) Sample Site POC pH POC pCO2 POC pO2 POC HCO3 POC Total CO2 POC Base Excess POC ABG O2 Sat Rui Test O2 Delivery Device Sodium Potassium Chloride Carbon Dioxide Anion Gap BUN Creatinine Est Cr Clr Drug Dosing Est GFR ( Amer) Est GFR (Non-Af Amer) BUN/Creatinine Ratio Glucose POC Glucose 106 H Calcium NT-Pro-B Natriuret Pep Diagnostic Findings CT head IMPRESSION: No acute intracranial findings. No evidence of intracranial hemorrhage. Medications Administered Current Inpatient Medications Aspirin (Aspirin Chew) 81 mg PO DAILY [facility] Stop: 11/20/19 08:59 Last Admin: 10/21/19 11:08 Dose: 81 mg Documented by: Atorvastatin Calcium (Lipitor) 20 mg NG DAILY [facility] Stop: 11/20/19 11:59 Last Admin: 10/21/19 12:14 Dose: 20 mg Documented by: Dextrose (Dextrose 50%) 25 - 50 ml IV UD PRN; Protocol PRN Reason: Hypoglycemia Protocol Stop: 11/19/19 12:29 Enoxaparin Sodium (Lovenox) 30 mg SQ Q12H [facility] Stop: 11/20/19 07:59 Last Admin: 10/21/19 11:08 Dose: 30 mg Documented by: Enteral Nutritional Formula (Impact 1.0 Peng) 1,000 ml NG UD [facility]; Protocol Stop: 11/20/19 12:14 Famotidine (Pepcid) 20 mg PO BID [facility]; Protocol Stop: 11/20/19 20:59 Glucagon (Glucagen) 1 mg IM UD PRN; Protocol PRN Reason: Hypoglycemia Protocol Stop: 11/19/19 12:29 Glucose (Glucose 40%) 15 - 30 gm PO UD PRN; Protocol PRN Reason: Hypoglycemia Protocol Stop: 11/19/19 12:29 Glucose (Dex4 Glucose) 4 - 8 tabs PO UD PRN; Protocol PRN Reason: Hypoglycemia Protocol Stop: 11/19/19 12:29 Insulin Aspart (Novolog Flexpen) 0 units SC Q6 [facility] Stop: 11/20/19 11:59 Last Admin: 10/21/19 13:29 Dose: Not Given Documented by: Insulin Glargine (Lantus Solostar Pen) 0 units SC BID [facility]; Protocol Stop: 11/20/19 20:59 Ioversol (Optiray 320 125ml) 117 ml IV ONCE PRN PRN Reason: Interaction Checking Stop: 10/23/19 23:49 Last Admin: 10/19/19 23:51 Dose: 117 ml Documented by: Labetalol HCl (Normodyne) 5 mg IV Q4H PRN PRN Reason: SBP > 180 or DBP > 105 Stop: 11/19/19 10:28 Last Admin: 10/21/19 04:58 Dose: 5 mg Documented by: Losartan Potassium (Cozaar) 12.5 mg NG DAILY [facility] Stop: 11/20/19 11:59 Last Admin: 10/21/19 12:14 Dose: 12.5 mg Documented by: Metoprolol Tartrate (Lopressor) 25 mg PO BID [facility] Stop: 11/20/19 11:59 Last Admin: 10/21/19 12:14 Dose: 25 mg Documented by: Miscellaneous (Carbohydrates For Hypoglycemia) 15 - 30 gm PO UD PRN PRN Reason: Hypoglycemia Treatment Stop: 11/19/19 12:29 Miscellaneous Information (Pharmacist Discharge Med Rec Consult) 1 ea N/A UD PRN PRN Reason: Consult Stop: 11/19/19 02:50 Miscellaneous Information (Consult Glycemic Management Pharmacy) 1 ea N/A UD PRN PRN Reason: Consult Stop: 11/19/19 11:06 PG Care Time/CCT Total # of Minutes Spent Total Time Spent with Patient: Total time spent is greater than 50% in coordination of care (as documented) at patient's floor/unit and/or counseling patient:
[2019-10-21] MEDS: METOPROLOL TARTRATE 25 MG TAB PO SCH ×2 (17:08→20:24)
[2019-10-21] MEDS: FAMOTIDINE 20 MG TAB PO SCH (20:26)
--- NOTE | 2019-10-21 20:26 | Neurology Progress Note ---
Date of Service October 21, 2019 Assessment & Plan (1) Embolic stroke involving right middle cerebral artery: Luba Gates is an 84 yo woman w/ PMH of pAfib not on AC, morbid obesity, h/o recurrent UTIs, DM, HTN, HLD, rheumatic heart disease, osteoporosis and h/o dementia at baseline who p/t [facility] with acute onset of left sided weakness, was found to have a right M1 now s/p tPA. Symptom localization: right MCA territory Stroke mechanism: cardioembolic Stroke WorkUp: - CT head: no hemorrhage or hypodensity, moderate SVID, generalized atrophy. 24hr post tPA scan stable, no hemorrhage. - CTA head/neck: right M1 occlusion, right vertebral artery occlusion - MRI brain: acute infarct in the right basal ganglia and centrum semiovale - TTE: EF 40-45%, mild global hypokinedid of LV, mild LVH, moderate MR, mild to moderate TR - Telemetry: Afib with RVR - A1c: 6.0 - FLP: 20 - Troponin, TSH: negative, normal Stroke Management: - Vitals, Neurochecks, NIHSS per unit routine - BP parameters: SBP CAP 180, restart home BP meds with goal normotension over next 3-4 days - Consult speech, PT, OT for supportive management - goal normothermia, tylenol prn - please repeat MRI brain given worsening of exam and ongoing Afib with RVR (high risk of further embolic events) - Will enrollment counselor concerning stroke education, smoking cessation, healthy diet, physical activity, weight loss - Follow up with PCP for assistance with outpatient goals (BP <135/85, LDL <70, A1c <7) - Follow up in neurology clinic in 6-8 weeks Secondary Stroke Prevention: - Antiplatelet: ASA 81mg po daily - Anticoagulation: If repeat MRI brain stable (no hemorrhage and no microhemorrhages on GRE/SWI sequence), would recommend starting apixaban and discontinuing aspirin - Statin: Atorvastatin 40mg daily Thank you for this interesting consult. Plan of care was discussed with primary team. We will continue to follow. Please call with any questions. (2) Atrial fibrillation with rapid ventricular response: (3) tPA adm status 24 hr [employer]: Subjective NAEs overnight. Nurse at bedside reports that she was moving around the LUE at some point yesterday but this stopped overnight. Has been tired and confused most of the day. Denied any complaints when examined but kept falling asleep. Review of Systems Review of Systems: Unobtainable due to cognitive status Physical Exam Physical Exam: General Exam: GEN: NAD, lying down in examination bed. CV: Afib on monitor, no significant edema. PULM: Nonlabored respirations on room air. Neuro Exam: MS: Drowsy but arousable. Oriented to self and being in a hospital, also knew month but did not know year. Minimal speech output, severe dysarthria. Could not name or repeat. Unable to properly assess cognition and memory. + neglect at times. Inattentive. CN: Visual rodríguez full, + blink to threat bilaterally. No extinction to double simultaneous stimuli. Unable to visualize fundi on fundoscopic exam as patient kept closing their eyes repeatedly. PERRLA OU. Slight right gaze preference but crosses midline. Facial sensation intact to LT. L FP. Hearing intact to conversation. Would not participate in testing of tongue or uvula. MOTOR: Normal bulk and tone. No pronator drift in RUE. Moves RUE and RLE with slow drift to bed, minimal antigravity movement in LUE, none in LLE. REFLEXES: Trace at biceps, triceps, brachioradialis, absent patella, and could not assess Achilles 2/2 being in boots. Toes mute bilaterally. SENSORY: Intact to LT throughout, no extinction to double simultaneous stimuli. Nodded to vibration in RUE/RLE, not clearly detecting in LUE/LLE. COORDINATION: no dysmetria on observed movements of RUE however would not follow commands to test formally GAIT: Deferred due to physical status. NIH STROKE SCALE 1A. Level of Consciousness (0-3) = 1 1B. LOC Questions (0-2) = 1 1C. LOC Commands (0-2) = 1 2. Best Horizontal Gaze (0-2) = 0 3. Visual Rodríguez (0-3) = 0 4. Facial Palsy (0-3) = 2 5. Motor Arm Right (0-4) = 0 Left (0-4) = 3 6. Motor Leg Right (0-4) = 0 Left (0-4) = 4 7. Limb Ataxia (0-2) = 0 8. Sensory (0-2) = 1 9. Best Language (0-3) = 1 10. Dysarthria (0-2) = 2 11. Extinction and Inattention (0-2) = 1 NIHSS TOTAL = 17 Results & Data Vital Signs (Past 12 Hours) Vital Signs Temp Pulse Resp BP Pulse Ox 10/21/19 17:00 118 H 23 133/88 95 10/21/19 16:00 36.7 C 140 H 25 H 139/105 H 95 10/21/19 14:47 115 H 23 131/113 H 95 10/21/19 13:46 88 17 105/59 L 94 10/21/19 12:46 101 H 33 H 130/62 94 10/21/19 11:46 112 H 17 131/89 94 10/21/19 10:46 107 H 20 127/73 95 10/21/19 09:46 101 H 22 153/87 H 97 PG Care Time/CCT Total # of Minutes Spent Total Time Spent with Patient: Total time spent is greater than 50% in coordination of care (as documented) at patient's floor/unit and/or counseling patient:
[2019-10-21] MEDS: INSULIN GLARGINE SOLOSTAR 100 UNITS/ML 3 ML PEN SC SCH (20:29)
[2019-10-21] MEDS: METOPROLOL TARTRATE 1 MG/ML VIAL IV PRN (23:46)
[2019-10-22] MEDS ORDERED: GADOBUTROL 65ML VIAL IV PRN (01:56)
[2019-10-22] MEDS: INSULIN ASPART 100 UNITS/ML 3 ML PEN SC SCH ×3 (06:11→17:19)
[2019-10-22] MEDS: METOPROLOL TARTRATE 1 MG/ML VIAL IV PRN ×2 (06:30→17:29)
--- NOTE | 2019-10-22 07:07 | Magnetic Resonance Report ---
MR brain wo/w con CLINICAL HISTORY: follow up stroke mental status change COMPARISON STUDY: 10/20/2019 TECHNIQUE: Utilizing a 1.5 Leonela magnet and dedicated coil, multiplanar, multiecho imaging of the br ain was performed pre and postcontrast administration. IV administration of 8 mL of Gadavist contras t was uneventful. FINDINGS: Diffusion images show a slight increase in intensity in signal in the right paraventricular and and external capsule regions. This appears to be slightly increased in terms of maximum dimensio n. Focal punctate foci of acute ischemic changes are noted in the central right temporal lobe image 12 a s well as additional foci image 16 within the right frontal lobe image 17 punctate foci of new acute ischemic changes are noted superior to the right lateral ventricle. Additional comments and chronic small vessel change and atrophy are unaltered. The ventricular system shows mild compensatory prominence. There is no evidence for midline shift. IMPRESSION: 1. Somewhat progressive infarcts in size and number of the right cerebral hemisphere. 2. Atrophy and age-related change are unaltered. The above report was generated using voice recognition software. It may contain grammatical, syntax or spelling errors. Electronically signed by: Adrien Voss M.D. 10/22/2019 7:06 AM
[2019-10-22 07:39] LABS: Creatinine Clr Calc Pharmacy 63.7 ml/min; Est GFR (African American) 80.9; Est GFR (Non-African American) 69.8
[2019-10-22] MEDS ORDERED: METOPROLOL TARTRATE 50 MG TAB PO SCH (09:00)
[2019-10-22] MEDS: ENOXAPARIN INJ 30 MG/0.3 ML SYR SQ SCH (09:55)
[2019-10-22] MEDS: Heparin IV Low Dose *NO* Bolus IV SCH (09:56)
[2019-10-22] MEDS: LOSARTAN POTASSIUM 25 MG TAB NG SCH (10:02)
[2019-10-22] MEDS: ASPIRIN 81 MG CHEW PO SCH (10:02)
[2019-10-22] MEDS: FAMOTIDINE 20 MG TAB PO SCH ×2 (10:03→20:32)
[2019-10-22] MEDS: ATORVASTATIN 20 MG TAB NG SCH (10:03)
[2019-10-22] MEDS: INSULIN GLARGINE SOLOSTAR 100 UNITS/ML 3 ML PEN SC SCH ×2 (10:06→20:54)
[2019-10-22] MEDS: HEPARIN SODIUM/DEXTROSE 25,000 UNITS/500 ML BAG IV SCH (10:08)
[2019-10-22 10:12] LABS: INR 1.3 (0.9-1.1); Partial Thromboplastin Ratio 0.8; Partial Thromboplastin Time 21.6 Seconds (21.0-31.0); Prothrombin Time 12.9 Seconds (9.0-12.0)
[2019-10-22 10:50] LABS: Hematocrit (blood only) 36.2 % (37-47); Hemoglobin 12.1 g/dL (12.0-16.0); Mean Corpuscular Hemoglobin 29.7 pg (25-34); Mean Corpuscular Hgb Conc 33.4 g/dL (32-36); Mean Corpuscular Volume 88.9 fL (80-100); Mean Platelet Volume 11.6 fL (7.4-10.4); Platelet Count 110 K/uL (130-400); RDW Coefficient of Variation 14.9 % (11.5-14.5); RDW Standard Deviation 48.2 fL (36.4-46.3); Red Blood Count 4.07 M/uL (4.2-5.4); White Blood Count 8.59 K/uL (4.8-10.8)
[2019-10-22 10:58] LABS: Basophils # (auto) 0.03 K/uL (0-0.2); Basophils % (auto) 0.3 %; Eosinophils # (auto) 0.22 K/uL (0-0.5); Eosinophils % (auto) 2.6 %; Immature Granulocytes # (auto) 0.03 K/uL (0.00-0.02); Immature Granulocytes % (auto) 0.3 %; Lymphocytes % (auto) 23.3 %; Monocytes # (auto) 0.99 K/uL (0.11-0.59); Monocytes % (auto) 11.5 %; Neutrophils # (auto) 5.32 K/uL (1.4-6.5)
--- NOTE | 2019-10-22 12:14 | Pharmacy Report ---
Pharmacy Glycemic Short Note 2 - Date of Service October 22, 2019 - Glycemic Short BSG Results (Last 24 hours): 10/21/19 10/21/19 10/21/19 11:33 12:33 17:14 Glucose 107 H POC Glucose 106 H 119 H 10/21/19 10/21/19 10/22/19 20:28 23:47 06:03 Glucose POC Glucose 121 H 150 H 142 H 10/22/19 11:35 Glucose POC Glucose 126 H OUTPATIENT ANTIDIABETIC REGIMEN: * Glipizide 5mg PO BID * A1c = 6.0% 10/20/19 ASSESSMENT: 10/22 * BSGs well controlled over last 24 hrs with current orders * Patient pulled out NGT thus continuous tube feeds not running at this time, however when they were running the Novolog CR appeared appropriate * Uncertain if NGT will be replaced today as pt had significant discomfort with RN attempts, will continue basal insulin but adjust scale should pt remain NPO 10/21 * Fasting BSG 106 this AM with 9 units basal insulin on board * Pt will have tube feeds started today via NG * Will adjust basal to dose per scale BID as pt appears to require less than "low" stress wt based dose while NPO. Uncertain how well pt will tolerate feeds * TF carbs will be covered with Novolog carb ratio 10/20 * Type 2 diabetic admitted for embolic stroke in the setting of a fib. She did receive tPA in the ED. * Patient remains NPO at this time * BSGs have been in the 160-180's range * Will initiate basal/bolus regimen based upon weight: basal insulin doses based on "mild" stress given current BSGs and NPO status; rapid acting insulin doses based on "moderate" stress PLAN FOR INPATIENT GLYCEMIC CONTROL: * Hold outpatient oral diabetes medications (glipizide) * Basal insulin * Lantus BID per the following scale: * 0 units if less than 120 * 7 units if 120-180 * 14 units if greater than 180 * Bolus insulin * NovoLog per scale Q 6 hrs initially * Goal Range: Low 110 mg/dL - High 140 mg/dL * Correction Factor: 30 mg/dL/unit * Nutritional / Prandial insulin per carb ratio of 1 unit per 10 grams CHO consumed PLAN FOR DISCHARGE: * to be determined, however given her A1c result - one may consider resuming her glipizide on discharge if she is not experiencing hypoglycemic episodes with this regimen.
--- NOTE | 2019-10-22 14:39 | Hospitalist Progress Note ---
Date of Service October 22, 2019 Assessment & Plan (1) Embolic stroke involving right middle cerebral artery: acute clot in the M1 distribution of MCA MRI brain shows acute ischemic stroke in right basal ganglia and periventricular white matter on right side also shows a significant chronic ischemic changes from vascular disease initially had a response to tPA with some movement in left arm and leg however, later in the day on 10/20 she was exhibiting left side neglect and no movement on left side still with dysarthria, dysphagia started on aspirin, statin via NGT that was placed 10/21 enteral feedings via NGT no hemorrhagic conversion on CT head 10/21 however, with worsening clinical status, Dr. Colvin ordered repeat MRI brain MRI 10/22 with progressive ischemic changes on right side, no hemorrhage poor/guarded prognosis prior to stroke her functional status was very poor, bedbound or in wheelchair, did not walk or stand now with left sided neglect/paresis she would be at higher risk for pressure ulcers, poor quality of life failed bedside swallow again today, ice chip just fell out of her mouth she is aspiration risk, placed HOB at 30 degrees family meeting 10/22, patient made a DNR will keep on fluids over the weekend, guarded prognosis if she rapidly declines then would pursue hospice if she remains stable or improves then family will make decision on PEG tube on Friday Amie Bagley with palliative care will meet with family on Friday to discuss further (2) Atrial fibrillation with rapid ventricular response: noted to have this in her history was never anticoagulated due to repeated falls and injuries now with atrial fibrillation with RVR stop Lopressor 50mg PO BID as she cannot safely swallow tried using Lopressor 5mg q4 but she persisted in RVR finally responded well to Diltiazem 10mg bolus then 10mg/hr drip will keep on Diltiazem over the weekend as she cannot take PO echo with EF 45% anticoagulated with heparin drip as her CoreSafe feeding tube was pulled out (3) Paroxysmal A-fib: see above, now in persistent Afib with RVR (4) Recurrent urinary tract infection: Previous infections including ESBL E. coli, and enterococcus. Urinalysis looks infected. fever today, WBC normal urine culture growing alpha strep not enterococcus will place on Zosyn, follow up final culture results if she has persistent fevers despite antibiotics would check CXR as she is high aspiration risk keeping HOB at 30 degrees (5) Type 2 diabetes mellitus: Holding glipizide. Placed on Accu-Cheks before meals and at bedtime with NovoLog coverage for scale monitor for hypoglycemia will add Dextrose to IV fluids as tube feeds now not possible due to her pulling out the feeding tube (6) Hyperlipidemia: LDL at goal continue statin therapy for acute stroke (7) Ambulatory dysfunction: Patient was noted to have ambulatory dysfunction prior to acute onset of CVA. certainly will make her recovery more difficult if she survives stroke then would plan to return to SNF for 24 hour care (8) Status post aortic valve replacement: Echocardiogram shows AV in good position Subjective patient responsive this morning, still with left sided neglect, not moving left side she was able to answer some questions though, told me that she wants her son Ramirez and grand daughter Apple to help make decisions she pulled out her CoreSafe feeding tube late in the morning RN attempted to place new feeding tube but patient could not tolerate, kept coughing, choking, gagging, turned cyanotic long talk with patient's grand daughter and other family member about DNR status she would like to wait for her father Ramirez to be here around 4pm discussed with palliative care, Amie will meet with family and myself family meeting this afternoon with Amie Bagley, palliative care, as well as myself Ramirez, patient's son, as well as Apple, her grand daughter and the patient's other son and grand daughter discussed code status it was agreed upon that the patient should be DNR as her quality of life is poor and making her a full code would put her through unnecessary pain/suffering long discussion about pro's and con's of placing a PEG tube discussed that the patient cannot swallow, unsure if she will gain swallowing function while PEG tube would offer her route for nutrition/hydration and necessary medications, it may also prolong her suffering explained that she would still be at risk for aspiration, she would have diarrhea/liquid stools which would be detrimental to her health, causing skin breakdown since it is Friday and we would not be able to place a PEG tube until Friday, we decided to give patient fluid and dextrose over the weekend will reassess her status on Friday, if rapidly deteriorating then we would not place PEG if she is stable then family would decide on whether or not she would want the PEG and the proceed accordingly Amie will plan to reach out to the family Friday total time for just the two family discussions today was 60 minutes Review of Systems Review of Systems: Unobtainable due to cognitive status and Unobtainable due to reduced consciousness Physical Exam Constitutional: WD/WN, vitals as above + ill appearing and + lethargic Eyes: PERRL, conjunctivae normal, anicteric sclerae ENMT: external ear and nose normal, oropharynx normal Neck: trachea midline, no thyromegaly Respiratory: normal respiratory effort, lungs clear to auscultation (decreased in bases) Cardiovascular: Rate/Rhythm: + tachycardic and + irregularly irregular Heart Sounds: normal S1 and normal S2; no murmur Vessels: no JVD Extremities: normal capillary refill; no edema Gastrointestinal (Abdomen): normal bowel sounds, soft, nontender, no hepatosplenomegaly Musculoskeletal: Head/Neck/Chest: normocephalic and head atraumatic Extremities: extremities normal to inspection and + abnormal strength (no movement left arm/hand, left leg/foot) Skin: no rashes, warm and dry Neurologic: + focal motor deficit (left side paralysis) Speech / Cognition: + abnormal speech (dysarthric) Motor/Sensory: no pronator drift and no asterixis Cranial Nerves: PERRL and symmetric palate elevation; + tongue not midline (deviated left) Psychiatric: Orientation: oriented to person and oriented to place; + not alert and + not oriented to time Lymphatic: no cervical or axillary lymphadenopathy Results & Data Vital Signs (Past 12 Hours) Vital Signs Temp Pulse Pulse Resp BP BP Pulse Ox 10/22/19 08:00 37.4 C 101 H 20 135/96 95 10/22/19 06:30 130 H 120/86 10/22/19 04:01 36.6 C 113 H 24 120/86 95 Laboratory Results Laboratory Results - last 24 hr 10/21/19 10/21/19 10/21/19 17:14 20:28 23:47 WBC RBC Hgb Hct MCV MCH MCHC RDW Std Deviation RDW Coeff of Stanford Plt Count MPV Immature Gran % (Auto) Neut % (Auto) Lymph % (Auto) [place] % (Auto) Eos % (Auto) Baso % (Auto) Immature Gran # (Auto) Neut # (Auto) Lymph # (Auto) [place] # (Auto) Eos # (Auto) Baso # (Auto) Absolute Nucleated RBC Nucleated RBC % (auto) Neutrophils % (Manual) Band Neutrophils % Lymphocytes % (Manual) Prolymphocyte % Reactive Lymphs % (Man) Monocytes % (Manual) Eosinophils % (Manual) Basophils % (Manual) Metamyelocytes % (Man) Myelocytes % (Man) Promyelocytes % (Man) Blast Cells % (Manual) Plasma Cell % (Manual) Other Cells % Nucleated RBC % Neutrophils # (Manual) Band Neutrophils # Total Absolute Neuts Lymphocytes # (Manual) Prolymphocyte # Reactive Lymphs # Total Abs Lymphocytes Monocytes # (Manual) Eosinophils # (Manual) Basophils # (Manual) Metamyelocytes # (Man) Myelocytes # (Manual) Promyelocytes # (Man) Blast Cells # (Man) Plasma Cell # (Manual) Other Cells # Nucleated RBCs # (Man) Hypersegmented Neuts Hyposegmented Neuts Hypogranular Neuts Large Granular Lymphs # Lrg Granular Lymphs Hairy Cells Smudge Cells Toxic Granulation Toxic Vacuolation Dohle Bodies Rebel Rods Platelet Estimate Hypogranular Platelets Clumped Platelets Giant Platelets Platelet Satelliting RBC Morphology Polychromasia Hypochromasia Poikilocytosis Basophilic Stippling Anisocytosis Microcytosis Macrocytosis Spherocytes Pappenheimer Bodies Sickle Cells Target Cells Tear Drop Cells Ovalocytes Stomatocytes Prado-Ambrose Bodies Echinocytes Acanthocytes (Spur) Rouleaux RBC Agglutinates Schistocytes RBC Morph Comment Sezary Cell PT INR APTT PTT Ratio Creatinine Est Cr Clr Drug Dosing Est GFR ( Amer) Est GFR (Non-Af Amer) POC Glucose 119 H 121 H 150 H 10/22/19 10/22/19 10/22/19 06:03 06:17 06:17 WBC 8.59 RBC 4.07 L Hgb 12.1 Hct 36.2 L MCV 88.9 MCH 29.7 MCHC 33.4 RDW Std Deviation 48.2 H RDW Coeff of Stanford 14.9 H Plt Count 110 L MPV 11.6 H Immature Gran % (Auto) 0.3 Neut % (Auto) 62.0 Lymph % (Auto) 23.3 [place] % (Auto) 11.5 Eos % (Auto) 2.6 Baso % (Auto) 0.3 Immature Gran # (Auto) 0.03 H Neut # (Auto) 5.32 Lymph # (Auto) 2.00 [place] # (Auto) 0.99 H Eos # (Auto) 0.22 Baso # (Auto) 0.03 Absolute Nucleated RBC Nucleated RBC % (auto) Neutrophils % (Manual) Band Neutrophils % Lymphocytes % (Manual) Prolymphocyte % Reactive Lymphs % (Man) Monocytes % (Manual) Eosinophils % (Manual) Basophils % (Manual) Metamyelocytes % (Man) Myelocytes % (Man) Promyelocytes % (Man) Blast Cells % (Manual) Plasma Cell % (Manual) Other Cells % Nucleated RBC % Neutrophils # (Manual) Band Neutrophils # Total Absolute Neuts Lymphocytes # (Manual) Prolymphocyte # Reactive Lymphs # Total Abs Lymphocytes Monocytes # (Manual) Eosinophils # (Manual) Basophils # (Manual) Metamyelocytes # (Man) Myelocytes # (Manual) Promyelocytes # (Man) Blast Cells # (Man) Plasma Cell # (Manual) Other Cells # Nucleated RBCs # (Man) Hypersegmented Neuts Hyposegmented Neuts Hypogranular Neuts Large Granular Lymphs # Lrg Granular Lymphs Hairy Cells Smudge Cells Toxic Granulation Toxic Vacuolation Dohle Bodies Rebel Rods Platelet Estimate Hypogranular Platelets Clumped Platelets Giant Platelets Platelet Satelliting RBC Morphology Polychromasia Hypochromasia Poikilocytosis Basophilic Stippling Anisocytosis Microcytosis Macrocytosis Spherocytes Pappenheimer Bodies Sickle Cells Target Cells Tear Drop Cells Ovalocytes Stomatocytes [place]ado-[place] Bodies Echinocytes Acanthocytes (Spur) Rouleaux RBC Agglutinates Schistocytes RBC Morph Comment Sezary Cell PT INR APTT PTT Ratio Creatinine 0.78 Est Cr Clr Drug Dosing 63.7 Est GFR ( Amer) 80.9 Est GFR (Non-Af Amer) 69.8 POC Glucose 142 H 10/22/19 10/22/19 10/22/19 09:38 09:38 11:35 WBC Cancelled RBC Cancelled Hgb Cancelled Hct Cancelled MCV Cancelled MCH Cancelled MCHC Cancelled RDW Std Deviation Cancelled RDW Coeff of Stanford Cancelled Plt Count Cancelled MPV Cancelled Immature Gran % (Auto) Cancelled Neut % (Auto) Cancelled Lymph % (Auto) Cancelled [place] % (Auto) Cancelled Eos % (Auto) Cancelled Baso % (Auto) Cancelled Immature Gran # (Auto) Cancelled Neut # (Auto) Cancelled Lymph # (Auto) Cancelled [place] # (Auto) Cancelled Eos # (Auto) Cancelled Baso # (Auto) Cancelled Absolute Nucleated RBC Cancelled Nucleated RBC % (auto) Cancelled Neutrophils % (Manual) Cancelled Band Neutrophils % Cancelled Lymphocytes % (Manual) Cancelled Prolymphocyte % Cancelled Reactive Lymphs % (Man) Cancelled Monocytes % (Manual) Cancelled Eosinophils % (Manual) Cancelled Basophils % (Manual) Cancelled Metamyelocytes % (Man) Cancelled Myelocytes % (Man) Cancelled Promyelocytes % (Man) Cancelled Blast Cells % (Manual) Cancelled Plasma Cell % (Manual) Cancelled Other Cells % Cancelled Nucleated RBC % Cancelled Neutrophils # (Manual) Cancelled Band Neutrophils # Cancelled Total Absolute Neuts Cancelled Lymphocytes # (Manual) Cancelled Prolymphocyte # Cancelled Reactive Lymphs # Cancelled Total Abs Lymphocytes Cancelled Monocytes # (Manual) Cancelled Eosinophils # (Manual) Cancelled Basophils # (Manual) Cancelled Metamyelocytes # (Man) Cancelled Myelocytes # (Manual) Cancelled Promyelocytes # (Man) Cancelled Blast Cells # (Man) Cancelled Plasma Cell # (Manual) Cancelled Other Cells # Cancelled Nucleated RBCs # (Man) Cancelled Hypersegmented Neuts Cancelled Hyposegmented Neuts Cancelled Hypogranular Neuts Cancelled Large Granular Lymphs Cancelled # Lrg Granular Lymphs Cancelled Hairy Cells Cancelled Smudge Cells Cancelled Toxic Granulation Cancelled Toxic Vacuolation Cancelled Dohle Bodies Cancelled Rebel Rods Cancelled Platelet Estimate Cancelled Hypogranular Platelets Cancelled Clumped Platelets Cancelled Giant Platelets Cancelled Platelet Satelliting Cancelled RBC Morphology Cancelled Polychromasia Cancelled Hypochromasia Cancelled Poikilocytosis Cancelled Basophilic Stippling Cancelled Anisocytosis Cancelled Microcytosis Cancelled Macrocytosis Cancelled Spherocytes Cancelled Pappenheimer Bodies Cancelled Sickle Cells Cancelled Target Cells Cancelled Tear Drop Cells Cancelled Ovalocytes Cancelled Stomatocytes Cancelled [place] Bodies Cancelled Echinocytes Cancelled Acanthocytes (Spur) Cancelled Rouleaux Cancelled RBC Agglutinates Cancelled Schistocytes Cancelled RBC Morph Comment Cancelled Sezary Cell Cancelled PT 12.9 H INR 1.3 H APTT 21.6 PTT Ratio 0.8 Creatinine Est Cr Clr Drug Dosing Est GFR ( Amer) Est GFR (Non-Af Amer) POC Glucose 126 H Est GFR (Non-Af Amer) POC Glucose Diagnostic Findings MRI brain 10/22 IMPRESSION: 1. Somewhat progressive infarcts in size and number of the right cerebral hemisphere. 2. Atrophy and age-related change are unaltered. Medications Administered Current Inpatient Medications Aspirin (Aspirin Chew) 81 mg PO DAILY [facility] Stop: 11/20/19 08:59 Last Admin: 10/22/19 10:02 Dose: 81 mg Documented by: Atorvastatin Calcium (Lipitor) 20 mg NG DAILY [facility] Stop: 11/20/19 11:59 Last Admin: 10/22/19 10:03 Dose: 20 mg Documented by: Dextrose (Dextrose 50%) 25 - 50 ml IV UD PRN; Protocol PRN Reason: Hypoglycemia Protocol Stop: 11/19/19 12:29 Enteral Nutritional Formula (Impact 1.0 Peng) 1,000 ml NG UD FREDERICK; Protocol Stop: 11/20/19 12:14 Last Admin: 10/21/19 14:00 Dose: 1,000 ml Documented by: Famotidine (Pepcid) 20 mg PO BID [facility]ERICK; Protocol Stop: 11/20/19 20:59 Last Admin: 10/22/19 10:03 Dose: 20 mg Documented by: Gadobutrol (Gadavist 65ml) 9.5 ml IV ONCE PRN PRN Reason: Interaction Checking Stop: 10/26/19 01:55 Last Admin: 10/22/19 01:35 Dose: 9.5 ml Documented by: Glucagon (Glucagen) 1 mg IM UD PRN; Protocol PRN Reason: Hypoglycemia Protocol Stop: 11/19/19 12:29 Glucose (Glucose 40%) 15 - 30 gm PO UD PRN; Protocol PRN Reason: Hypoglycemia Protocol Stop: 11/19/19 12:29 Glucose (Dex4 Glucose) 4 - 8 tabs PO UD PRN; Protocol PRN Reason: Hypoglycemia Protocol Stop: 11/19/19 12:29 Heparin Sodium/Dextrose (Heparin Sodium/Dextrose) 25,000 units in 500 mls @ 18 mls/hr IV .Q24H [facility]ICK; Protocol Stop: 11/21/19 08:14 Last Admin: 10/22/19 10:08 Dose: 900 units/hr, 18 mls/hr Documented by: Insulin Aspart (Novolog Flexpen) 0 units SC Q6 [facility] Stop: 11/20/19 11:59 Last Admin: 10/22/19 11:46 Dose: Not Given Documented by: Insulin Glargine (Lantus Solostar Pen) 0 units SC BID [facility]; Protocol Stop: 11/20/19 20:59 Last Admin: 10/22/19 10:06 Dose: 7 units Documented by: Ioversol (Optiray 320 125ml) 117 ml IV ONCE PRN PRN Reason: Interaction Checking Stop: 10/23/19 23:49 Last Admin: 10/19/19 23:51 Dose: 117 ml Documented by: Losartan Potassium (Cozaar) 12.5 mg NG DAILY [facility] Stop: 11/20/19 11:59 Last Admin: 10/22/19 10:02 Dose: 12.5 mg Documented by: Metoprolol Tartrate (Lopressor) 5 mg IV Q4 PRN PRN Reason: Tachycardia Stop: 11/21/19 00:00 Last Admin: 10/22/19 06:30 Dose: 5 mg Documented by: Metoprolol Tartrate (Lopressor) 5 mg IV Q4 [facility] Stop: 11/21/19 15:59 Miscellaneous (Carbohydrates For Hypoglycemia) 15 - 30 gm PO UD PRN PRN Reason: Hypoglycemia Treatment Stop: 11/19/19 12:29 Miscellaneous Information (Consult Glycemic Management Pharmacy) 1 ea N/A UD PRN PRN Reason: Consult Stop: 11/19/19 11:06 PG Care Time/CCT Total # of Minutes Spent Total Time Spent: 100 Total Time Spent with Patient: Total time spent is greater than 50% in coordination of care (as documented) at patient's floor/unit and/or counseling patient: Critical Care Time: No Prolonged Care Time Prolonged Care Time: Yes Total Prolonged Care Time: 40 total time spent today was 100 minutes
[2019-10-22 14:50] LABS: Partial Thromboplastin Ratio 1.2; Partial Thromboplastin Time 33.2 Seconds (21.0-31.0)
[2019-10-22] MEDS ORDERED: PIPERACILL/TAZOBAC CONSULT ACTIVE PRN (15:22)
--- NOTE | 2019-10-22 15:28 | Palliative Care Consultation ---
Date of Consultation October 22, 2019 Assessment & Plan (1) Goals of care, counseling/discussion: -84 year old female patient with PMH paroxysmal afib not on anticoagulation, DM, htn, AVR in 2010, and others, presented to the hospital two day ago from [facility] with c/o left sided weakness. CT head showed nothing acute, CTA showed right MCA occlusion. Stroke alert was called, patient received tPA with no significant improvement. Neurology consulted and stated this stroke is likely embolic in natura 2/2 cardiac source with the afib. Echocardiogram shows Ef 40-45%, mild global hypokinesis. MRI of the brain shows stroke in the right basal ganglia and right periventricular white matter, as well as chronic ischemic changes. Patient failed her swallow study and is NPO. A NGT was placed for nutrition and meds, but patient pulled it out today and the nurses were unable to replace it due to discomfort for patient. Patient continues to have left sided neglect, no movement of the left side, deviated tongue, dysarthria, and dysphagia. She also has a positive UA, so is being treated for UTI. Given patient's worsening clinical picture, repeat MRI was ordered on 10/21 and showed progressive infarcts of the right cerebral hemisphere. Neuro to decide on when to start apixaban. Patient had ambulatory dysfunction prior to the stroke and had history of falls at the correction, which will further make any recovery from this stroke difficult. Patient has nine children, no designated POA and no living will. Family is uncertain about goals of care or what the patient would want. Palliative care consulted to assist with establishing goals of care and assisting family with medical decision making. -Met with patient and family in patient's room. Patient's family wanted to step out as patient is not able to fully participate in conversation. Patient has nine children, but only a few have been present. Patient was able to voice to Dr. Liao that she would want her son Raimrez and granddaughter Apple to be involved in decision making. -Met outside of room with Dr. Liao, myself, medical student, patient's son Ramirez, Ramirez's daughter Apple, patient's son Pieter, and another granddaughter. We talked about the patient's worsening stroke and poor prognosis. The main concern at this point is the dysphagia and whether or not they'd want a PEG tube. -Talked about what this would look like with and without PEG. PEG not proven to provide comfort, improve quality of life, and has risks such as aspiration, infection, etc. Patient's family agreed that she would not want her life to be prolonged in this situation. However, they'd like to take the weekend and see if patient continues to decline. In which case, they'd likely move towards comfort measures. They'd also like to give other family members a chance to weigh in. -Discussed code status. All family in agreement with DNR/DNI. -We will reconvene on Friday at 4pm to discuss further goals of care. 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: (3) Dysphagia: (4) Left hemiplegia: (5) Atrial fibrillation with rapid ventricular response: Supervising Physician Co-Signing Physician Notes Late entry for exam performed on 10/21 Chart reviewed, pt seen and examined, one son and 2 granddaughters at bedside PE: pt appears to recognize family HEENT: EOMI, mild [place] Resp: unlabored CV: RR Abd: soft, obese Neuro: dysarthria , L hemiparesis Agree with above note, and assessment - will cont to follow and assist family with medical decision making History of Present Illness Reason for Consultation: Goals of care Requesting Physician: Dr. Liao Attending Physician: Gonzalo Liao DO History of Present Illness This 84 year old female patient with PMH paroxysmal afib not on anticoagulation, DM, htn, AVR in 2010, and others, presented to the hospital two day ago from [facility] with c/o left sided weakness. CT head showed nothing acute, CTA showed right MCA occlusion. Stroke alert was called, patient received tPA with no significant improvement. Neurology consulted and stated this stroke is likely embolic in natura 2/2 cardiac source with the afib. Echocardiogram shows Ef 40-45%, mild global hypokinesis. MRI of the brain shows stroke in the right basal ganglia and right periventricular white matter, as well as chronic ischemic changes. Patient failed her swallow study and is NPO. A NGT was placed for nutrition and meds, but patient pulled it out today and the nurses were unable to replace it due to discomfort for patient. Patient continues to have left sided neglect, no movement of the left side, deviated tongue, dysarthria, and dysphagia. She also has a positive UA, so is being treated for UTI. Given patient's worsening clinical picture, repeat MRI was ordered on 10/21 and showed progressive infarcts of the right cerebral hemisphere. Neuro to decide on when to start apixaban. Patient had ambulatory dysfunction prior to the stroke and had history of falls at the correction, which will further make any recovery from this stroke difficult. Patient has nine children, no designated POA and no living will. Family is uncertain about goals of care or what the patient would want. Palliative care consulted to assist with establishing goals of care and assisting family with medical decision making. Thank you kindly for this consult. Palliative care team will follow as needed. Allergies Allergy/AdvReac Type Severity Reaction Status Date / Time No Known Allergies Allergy Unverified 10/20/19 00:15 Home Medications Home Medications Medication Instructions Recorded Confirmed Type amoxicillin 2,000 mg PO DIRECTED 09/27/18 10/20/19 History glipizide 5 mg PO BID 09/27/18 10/19/19 History losartan 12.5 mg PO DAILY 09/27/18 10/19/19 History metoprolol tartrate 25 mg PO BID 09/27/18 10/20/19 History polyethylene glycol 3350 [Miralax] 17 g PO DAILY PRN 10/19/19 10/19/19 History Cavilon Af 1 applic TOPICAL AMHS 10/20/19 10/20/19 History acetaminophen 650 mg PO DAILY 10/20/19 10/20/19 History acetaminophen 650 mg PO Q6H PRN 10/20/19 10/20/19 History acetaminophen 650 mg PO Q6H PRN MDD 3g/24hr 10/20/19 10/20/19 History xzwzxqtu-lueppclccnm-dmpew, wh 1 applic TOPICAL HS 10/20/19 10/20/19 History [Moisturizing Cream] lanolin sraibjb-cb-n.pet-ceres 1 applic TOPICAL AMPM 10/20/19 10/20/19 History [Eucerin] menthol-zinc oxide [Calmoseptine] 1 applic TOPICAL QS 10/20/19 10/20/19 History cousruangdkx-Nw-cryb-minerals 1 tab PO DAILY 10/20/19 10/20/19 History [Multiple Vitamin, Womens] omeprazole 20 mg PO DAILY 10/20/19 10/20/19 History ondansetron HCl 4 mg PO Q8 PRN 10/20/19 10/20/19 History Patient History Medical History (Updated 10/22/19 @ 15:21 by MADDISON Tian) Dysphagia Goals of care, counseling/discussion Hyperlipidemia (Chronic) Hypertension (Chronic) Left hemiplegia Osteoporosis (Chronic) Paroxysmal A-fib (Chronic) Recurrent urinary tract infection (Chronic) Rheumatic valvular disease (Chronic) Stroke (cerebrum) Type 2 diabetes mellitus (Chronic) Surgical History S/P cataract surgery Status post aortic valve replacement (Chronic) Family History Mother , age 92 Hypertension Father , age 95 No problems noted. 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 Feels Safe at Home: Yes Safety Concerns: Feels Safe At This Time Smoking Status: Never smoker Hx Alcohol Use: No Hx Substance Use: No Review of Systems Review of Systems: Unobtainable due to cognitive status severe dysarthria Physical Exam Constitutional: + morbidly obese; no acute distress ENMT: external ear and nose normal, oropharynx normal Respiratory: no labored breathing Auscultation: + diminished lung sounds Cardiovascular: Rate/Rhythm: + tachycardic and + irregularly irregular Extremities: + edema Gastrointestinal (Abdomen): Inspection/Auscultation: + abdomen distended (obesely distended) Neurologic: awake; + does not move all extremities (left side flaccid) Speech / Cognition: + abnormal speech (dysarthria) Results & Data Vital Signs (Past 12 Hours) Vital Signs Temp Pulse Pulse Resp BP BP Pulse Ox 10/22/19 14:47 37.4 C 116 H 31 H 158/111 H 93 10/22/19 08:00 37.4 C 101 H 20 135/96 95 10/22/19 06:30 130 H 120/86 10/22/19 04:01 36.6 C 113 H 24 120/86 95 Time Spent Midlevel 70 minutes with >50% of the time spent at bedside with patient, family, and physician discussion goals of care and end of life issues.
[2019-10-22] MEDS ORDERED: ACETAMINOPHEN 1,000 MG/100 ML VIAL IV PRN (15:43)
[2019-10-22] MEDS: KETOROLAC TROMETHAMINE 15 MG/ML VIAL IV PRN (15:51)
[2019-10-22] MEDS ORDERED: METOPROLOL TARTRATE 1 MG/ML VIAL IV SCH (16:00)
[2019-10-22] MEDS: PIPERACILLIN/TAZOBACTAM 3.375 GM in DEXTROSE 5% 100 ML IV SCH (16:53)
[2019-10-22] MEDS: D5W AND 1/2NSS 1,000 ML IV SCH (16:54)
[2019-10-22 17:59] LABS: Partial Thromboplastin Ratio 1.4; Partial Thromboplastin Time 36.6 Seconds (21.0-31.0)
[2019-10-22] MEDS ORDERED: HEPARIN IV BOLUS 4,500 UNITS in SYRINGE 0 ML IV ONE (18:04)
[2019-10-22] MEDS ORDERED: dilTIAZem HCl 5 MG/ML 5 ML VIAL IV ONE (18:40)
[2019-10-22] MEDS: dilTIAZem HCL 125 MG in DEXTROSE 5% 100 ML IV SCH (18:46)
--- NOTE | 2019-10-22 19:03 | Neurology Progress Note ---
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 Symptom localization: right MCA territory Stroke mechanism: cardioembolic Stroke WorkUp: - CT head: no hemorrhage or hypodensity, moderate SVID, generalized atrophy. 24hr post tPA scan stable, no hemorrhage. - CTA head/neck: right M1 occlusion, right vertebral artery occlusion - MRI brain: acute infarct in the right basal ganglia and centrum semiovale. Repeat MRI brain 10/22 shows evolution of known right basal ganglia/centrum semiovale stroke with no new lesions. - TTE: EF 40-45%, mild global hypokinedid of LV, mild LVH, moderate MR, mild to moderate TR - Telemetry: Afib with RVR - A1c: 6.0 - FLP: 20 - Troponin, TSH: negative, normal Stroke Management: - Vitals, Neurochecks, NIHSS per unit routine - BP parameters: SBP CAP 180, restart home BP meds with goal normotension over next 3-4 days - Consult speech, PT, OT for supportive management - goal normothermia, tylenol prn - Counseled concerning stroke education, smoking cessation, healthy diet, physical activity, weight loss - Follow up with PCP for assistance with outpatient goals (BP <135/85, LDL <70, A1c <7) - Follow up in neurology clinic in 6-8 weeks if she is discharged to SNF Secondary Stroke Prevention: - Antiplatelet: ASA 300mg DC daily - Anticoagulation: recommend starting apixaban and discontinuing aspirin once PO access obtained - Statin: Atorvastatin 40mg daily Thank you for this interesting consult. Plan of care was discussed with primary team. We will sign off at this time. Please call or text with any questions. Subjective NAEs overnight. She was relatively tired this afternoon on exam and didn't participate much. Family was present and discussed with them the results of her testing and likely prognosis given stroke. They reported that she does not have a history of dementia, just being wheelchair bound at the nursing facility. Review of Systems Review of Systems: Unobtainable due to cognitive status Physical Exam Physical Exam: General Exam: GEN: NAD, lying down in examination bed. CV: Afib on monitor, no significant edema. PULM: Nonlabored respirations on room air. Neuro Exam: MS: Drowsy but arousable. Oriented to self and being in a hospital, also knew month but did not know year. Minimal speech output, severe dysarthria. Could not name or repeat. Unable to properly assess cognition and memory. + neglect at times. Inattentive. CN: Visual rodríguez full, + blink to threat bilaterally. No extinction to double simultaneous stimuli. Unable to visualize fundi on fundoscopic exam as patient kept closing their eyes repeatedly. PERRLA OU. Slight right gaze preference but crosses midline. Facial sensation intact to LT. L FP. Hearing intact to conversation. Would not participate in testing of tongue or uvula. MOTOR: Normal bulk and tone. No pronator drift in RUE. Moves RUE and RLE with slow drift to bed, minimal antigravity movement in LUE, none in LLE. REFLEXES: Trace at biceps, triceps, brachioradialis, absent patella, and could not assess Achilles 2/2 being in boots. Toes mute bilaterally. SENSORY: Intact to LT throughout, no extinction to double simultaneous stimuli. Nodded to vibration in RUE/RLE, not clearly detecting in LUE/LLE. COORDINATION: no dysmetria on observed movements of RUE however would not follow commands to test formally GAIT: Deferred due to physical status. NIH STROKE SCALE 1A. Level of Consciousness (0-3) = 2 1B. LOC Questions (0-2) = 1 1C. LOC Commands (0-2) = 1 2. Best Horizontal Gaze (0-2) = 0 3. Visual Rodríguez (0-3) = 0 4. Facial Palsy (0-3) = 2 5. Motor Arm Right (0-4) = 0 Left (0-4) = 4 6. Motor Leg Right (0-4) = 0 Left (0-4) = 4 7. Limb Ataxia (0-2) = 0 8. Sensory (0-2) = 1 9. Best Language (0-3) = 1 10. Dysarthria (0-2) = 2 11. Extinction and Inattention (0-2) = 1 NIHSS TOTAL = 19 Results & Data Vital Signs (Past 12 Hours) Vital Signs Temp Pulse Pulse Resp BP Pulse Ox 10/22/19 17:29 161 H 10/22/19 15:51 130 H 10/22/19 15:39 39.2 C H 127 H 30 H 131/104 H 91 10/22/19 14:47 37.4 C 116 H 31 H 158/111 H 93 10/22/19 08:00 37.4 C 101 H 20 135/96 95 PG Care Time/CCT Total # of Minutes Spent Total Time Spent with Patient: Total time spent is greater than 50% in coordination of care (as documented) at patient's floor/unit and/or counseling patient:
[2019-10-23] MEDS: PIPERACILLIN/TAZOBACTAM 3.375 GM in DEXTROSE 5% 100 ML IV SCH ×2 (01:16→08:45)
[2019-10-23] MEDS: INSULIN ASPART 100 UNITS/ML 3 ML PEN SC SCH ×4 (01:20→18:29)
[2019-10-23 02:07] LABS: Partial Thromboplastin Ratio 4.2
[2019-10-23 02:20] LABS: Partial Thromboplastin Time 114.1 Seconds (21.0-31.0)
[2019-10-23] MEDS: dilTIAZem HCL 125 MG in DEXTROSE 5% 100 ML IV SCH ×2 (04:19→15:26)
[2019-10-23] MEDS: D5W AND 1/2NSS 1,000 ML IV SCH (05:54)
[2019-10-23 07:31] LABS: Calcium 8.5 mg/dl (8.5-10.1); Creatinine Clr Calc Pharmacy 51.8 ml/min; Est GFR (African American) 62.9; Est GFR (Non-African American) 54.3; Potassium 3.5 mmol/L (3.5-5.1)
[2019-10-23 07:33] LABS: Basophils # (auto) 0.03 K/uL (0-0.2); Basophils % (auto) 0.1 %; Eosinophils # (auto) 0.13 K/uL (0-0.5); Eosinophils % (auto) 0.6 %; Hematocrit (blood only) 35.9 % (37-47); Immature Granulocytes # (auto) 0.07 K/uL (0.00-0.02); Immature Granulocytes % (auto) 0.3 %; Lymphocytes % (auto) 13.9 %; Mean Corpuscular Hemoglobin 29.8 pg (25-34); Mean Corpuscular Hgb Conc 33.4 g/dL (32-36); Mean Corpuscular Volume 89.1 fL (80-100); Mean Platelet Volume 10.6 fL (7.4-10.4); Monocytes # (auto) 0.97 K/uL (0.11-0.59); Monocytes % (auto) 4.8 %; Neutrophils # (auto) 16.18 K/uL (1.4-6.5); Neutrophils % (auto) 80.3 %; Platelet Count 128 K/uL (130-400); RDW Coefficient of Variation 15.1 % (11.5-14.5); RDW Standard Deviation 48.4 fL (36.4-46.3); Red Blood Count 4.03 M/uL (4.2-5.4); White Blood Count 20.18 K/uL (4.8-10.8)
[2019-10-23] MEDS ORDERED: INSULIN GLARGINE SOLOSTAR 100 UNITS/ML 3 ML PEN SC ONE (09:00)
[2019-10-23] MEDS: FAMOTIDINE 20 MG TAB PO SCH (09:52)
[2019-10-23] MEDS: FAMOTIDINE 20 MG in SYRINGE 3 ML IV SCH ×2 (09:54→20:44)
[2019-10-23 10:16] LABS: Partial Thromboplastin Ratio 3.7
[2019-10-23 10:38] LABS: Partial Thromboplastin Time 99.6 Seconds (21.0-31.0)
[2019-10-23] MEDS: HEPARIN SODIUM/DEXTROSE 25,000 UNITS/500 ML BAG IV SCH (13:24)
--- NOTE | 2019-10-23 15:01 | Hospitalist Progress Note ---
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 D5 11/11 NSS switched to NSS since pt hyperglycemic on occasions no hemorrhagic conversion on CT head 10/21 however, with worsening clinical status, Dr. Colvin ordered repeat MRI brain MRI 10/22 with progressive ischemic changes on right side, no hemorrhage Poor/guarded prognosis, discussed with family, son Raoul. Prior to stroke her functional status was very poor, bedbound or in wheelchair, did not walk or stand Now with left sided neglect/paresis she would be at higher risk for pressure ulcers, poor quality of life Failed bedside swallow, high aspiration risk, placed HOB at 30 degrees. Pt son Raoul would like to discuss feeding tube placement on Friday. Appreciate palliative care recs. DNI/DNR (2) Atrial fibrillation with rapid ventricular response: noted to have this in her history was never anticoagulated due to repeated falls and injuries Continue Diltiazem 10mg drip will keep on Diltiazem over the weekend as she cannot take PO Echo with EF 45% Anticoagulated with heparin drip as her CoreSafe feeding tube was pulled out (3) Paroxysmal A-fib: See above, now in persistent Afib with RVR (4) Recurrent urinary tract infection: Previous infections including ESBL E. coli, and enterococcus. Urinalysis looks infected. Fever today, WBC normal Urine culture growing alpha strep not enterococcus Will place on Zosyn, follow up final culture results (5) Type 2 diabetes mellitus: Holding glipizide. Placed on Accu-Cheks before meals and at bedtime with NovoLog coverage for scale monitor for hypoglycemia (6) Hyperlipidemia: LDL at goal continue statin therapy for acute stroke (7) Ambulatory dysfunction: Patient was noted to have ambulatory dysfunction prior to acute onset of CVA. certainly will make her recovery more difficult if she survives stroke then would plan to return to SNF for 24 hour care (8) Status post aortic valve replacement: Echocardiogram shows AV in good position Subjective Patient is seen and examined at the bedside. Patient pulled NG tube denied before and continued to be mildly lethargic during the day. She was more responsive today for 3 or 4 hours and responded to questions appropriately. Patient family and her son is updated about her situation and he stated that he is going to make a decision about tube feeding on Friday. Patient also needs to be reevaluated by speech therapy. Patient can give only limited her history. She is poor historian. She does not have any complaints at this point. Patient is afebrile. Review of Systems Review of Systems: All systems reviewed & are unremarkable except as noted in HPI & below Physical Exam Constitutional: WD/WN, vitals as above + morbidly obese Eyes: PERRL, conjunctivae normal, anicteric sclerae PERRL; no nystagmus ENMT: external ear and nose normal, oropharynx normal Neck: trachea midline, no thyromegaly normal visual inspection Respiratory: normal respiratory effort, lungs clear to auscultation (decreased in bases) no labored breathing Auscultation: + diminished lung sounds Cardiovascular: RRR, no murmur, no edema Rate/Rhythm: + tachycardic and + irregularly irregular Heart Sounds: normal S1 and normal S2; no murmur Vessels: no JVD Extremities: normal capillary refill and + edema Gastrointestinal (Abdomen): normal bowel sounds, soft, nontender, no hepatosplenomegaly Inspection/Auscultation: + abdomen distended (obesely distended) Musculoskeletal: Head/Neck/Chest: + head abnormal to inspection, normocephalic and head atraumatic Extremities: extremities normal to inspection and + abnormal strength (no movement left arm/hand, left leg/foot) Skin: no rashes, warm and dry Neurologic: + focal motor deficit (left side paralysis) and awake; + does not move all extremities (left side flaccid) Speech / Cognition: + abnormal speech (dysarthria) Motor/Sensory: no pronator drift and no asterixis Cranial Nerves: PERRL and symmetric palate elevation; + tongue not midline (deviated left) Psychiatric: A+Ox3, euthymic affect Orientation: oriented x 3, oriented to person and oriented to place; + not alert and + not oriented to time Lymphatic: no cervical or axillary lymphadenopathy Results & Data Vital Signs (Past 12 Hours) Vital Signs Temp Pulse Pulse Resp BP Pulse Ox 10/23/19 11:59 36.8 C 81 27 H 123/73 98 10/23/19 07:40 36.9 C 78 20 104/58 L 91 10/23/19 07:21 81 10/23/19 03:16 37.0 C 75 20 107/63 98 PG Care Time/CCT Total # of Minutes Spent Total Time Spent with Patient: Total time spent is greater than 50% in coordination of care (as documented) at patient's floor/unit and/or counseling patient:
[2019-10-23] MEDS ORDERED: SODIUM CHLORIDE 0.9% 1000ML 1,000 ML IV SCH (15:15)
[2019-10-23] MEDS: PIPERACILLIN/TAZOBACTAM 4.5 GM in DEXTROSE 5% 100 ML IV SCH ×2 (16:47→23:19)
[2019-10-23 18:21] LABS: Partial Thromboplastin Ratio 2.5
[2019-10-23 18:25] LABS: Partial Thromboplastin Time 67.8 Seconds (21.0-31.0)
[2019-10-24] MEDS: INSULIN ASPART 100 UNITS/ML 3 ML PEN SC SCH ×4 (00:09→18:15)
[2019-10-24 01:30] LABS: Basophils # (auto) 0.03 K/uL (0-0.2); Basophils % (auto) 0.2 %; Eosinophils # (auto) 0.33 K/uL (0-0.5); Hematocrit (blood only) 34.4 % (37-47); Hemoglobin 11.6 g/dL (12.0-16.0); Immature Granulocytes # (auto) 0.03 K/uL (0.00-0.02); Immature Granulocytes % (auto) 0.2 %; Lymphocytes # (auto) 2.39 K/uL (1.2-3.4); Lymphocytes % (auto) 14.3 %; Mean Corpuscular Hemoglobin 29.7 pg (25-34); Mean Corpuscular Hgb Conc 33.7 g/dL (32-36); Mean Platelet Volume 9.9 fL (7.4-10.4); Monocytes # (auto) 1.04 K/uL (0.11-0.59); Monocytes % (auto) 6.2 %; Neutrophils # (auto) 12.95 K/uL (1.4-6.5); Neutrophils % (auto) 77.1 %; Platelet Count 124 K/uL (130-400); RDW Standard Deviation 48.3 fL (36.4-46.3); Red Blood Count 3.91 M/uL (4.2-5.4); White Blood Count 16.77 K/uL (4.8-10.8)
[2019-10-24 01:47] LABS: BUN Creatinine Ratio 28.4 (10-20); Calcium 8.4 mg/dl (8.5-10.1); Creatinine Clr Calc Pharmacy 56.5 ml/min; Est GFR (African American) 69.9; Est GFR (Non-African American) 60.3; Potassium 3.4 mmol/L (3.5-5.1)
[2019-10-24 02:03] LABS: Partial Thromboplastin Ratio 1.5; Partial Thromboplastin Time 40.1 Seconds (21.0-31.0)
[2019-10-24] MEDS ORDERED: HEPARIN IV BOLUS 4,500 UNITS in SYRINGE 0 ML IV ONE ×2 (03:01→18:15)
[2019-10-24] MEDS: dilTIAZem HCL 125 MG in DEXTROSE 5% 100 ML IV SCH ×2 (03:36→15:55)
[2019-10-24] MEDS: PIPERACILLIN/TAZOBACTAM 4.5 GM in DEXTROSE 5% 100 ML IV SCH ×2 (08:13→15:56)
[2019-10-24] MEDS: FAMOTIDINE 20 MG in SYRINGE 3 ML IV SCH ×2 (08:13→20:35)
[2019-10-24] MEDS: SODIUM CHLORIDE 0.9% 1000ML 1,000 ML IV SCH ×2 (09:00→20:36)
--- NOTE | 2019-10-24 10:14 | Pharmacy Report ---
Pharmacy Glycemic Short Note 2 - Date of Service October 24, 2019 - Glycemic Short BSG Results (Last 24 hours): 10/23/19 10/23/19 10/24/19 13:11 18:16 00:08 Glucose POC Glucose 201 H 113 H 105 H 10/24/19 10/24/19 01:07 06:18 Glucose 101 H POC Glucose 95 OUTPATIENT ANTIDIABETIC REGIMEN: * Glipizide 5mg PO BID * A1c = 6.0% 10/20/19 ASSESSMENT: * BSGs well controlled over last 24 hrs with current orders. Dextrose containing IVFs are no longer ordered. She is still NPO. PLAN FOR INPATIENT GLYCEMIC CONTROL: * Hold outpatient oral diabetes medications (glipizide) * Basal insulin * None indicated at this juncture. Nil PO intake, A1C of 6.0%. IVFs are now Nss @80cc/hr. * Bolus insulin * NovoLog per scale Q 6 hrs initially * Goal Range: Low 110 mg/dL - High 140 mg/dL * Correction Factor: 30 mg/dL/unit * Nutritional / Prandial insulin per carb ratio of 1 unit per 10 grams CHO consumed
[2019-10-24 10:25] LABS: Partial Thromboplastin Ratio 2.5
[2019-10-24 10:29] LABS: Partial Thromboplastin Time 68.3 Seconds (21.0-31.0)
[2019-10-24] MEDS: HEPARIN SODIUM/DEXTROSE 25,000 UNITS/500 ML BAG IV SCH (12:31)
[2019-10-24] MEDS: KETOROLAC TROMETHAMINE 15 MG/ML VIAL IV PRN (12:33)
--- NOTE | 2019-10-24 13:16 | Hospitalist Progress Note ---
Date of Service October 24, 2019 Assessment & Plan (1) Embolic stroke involving right middle cerebral artery: Acute clot in the M1 distribution of MCA MRI brain shows acute ischemic stroke in right basal ganglia and periventricular white matter on right side also shows a significant chronic ischemic changes from vascular disease initially had a response to tPA with some movement in left arm and leg however, later in the day on 10/20 she was exhibiting left side neglect and no movement on left side still with dysarthria, dysphagia started on aspirin, statin via NGT that was placed 10/21 enteral feedings via NGT-now pulled by the pt , dependant on IV fluid. no hemorrhagic conversion on CT head 10/21 however, with worsening clinical status, Dr. Colvin ordered repeat MRI brain MRI 10/22 with progressive ischemic changes on right side, no hemorrhage Poor/guarded prognosis, discussed with family, son Raoul. Prior to stroke her functional status was very poor, bedbound or in wheelchair, did not walk or stand Now with left sided neglect/paresis she would be at higher risk for pressure ulcers, poor quality of life Failed bedside swallow, high aspiration risk, placed HOB at 30 degrees. Continue NSS 80 cc/h Pt haris Silveira would like to discuss feeding tube placement on Friday. Appreciate palliative care recs. DNI/DNR (2) Atrial fibrillation with rapid ventricular response: noted to have this in her history was never anticoagulated due to repeated falls and injuries Continue Diltiazem 10mg drip will keep on Diltiazem over the weekend as she cannot take PO Echo with EF 45% Anticoagulated with heparin drip as her CoreSafe feeding tube was pulled out (3) Paroxysmal A-fib: See above, now in persistent Afib with RVR (4) Recurrent urinary tract infection: Previous infections including ESBL E. coli, and enterococcus. Urine culture growing alpha strep not enterococcus Continue Zosyn, since patient is responding well. WBC count improved from 20.18 ->16.77 (5) Type 2 diabetes mellitus: Holding glipizide. Placed on Accu-Cheks before meals and at bedtime with NovoLog coverage for scale monitor for hypoglycemia (6) Hyperlipidemia: LDL at goal continue statin therapy for acute stroke (7) Ambulatory dysfunction: Patient was noted to have ambulatory dysfunction prior to acute onset of CVA. certainly will make her recovery more difficult if she survives stroke then would plan to return to SNF for 24 hour care (8) Status post aortic valve replacement: Echocardiogram shows AV in good position Subjective Patient is seen and examined at the bedside. Patient pulled NG tube and continued to be mildly lethargic during the day. She was more responsive today for 3 or 4 hours and responded to questions appropriately. Patient family and her son is updated about her situation and he stated that he is going to make a decision about tube feeding on Friday. Patient also needs to be reevaluated by speech therapy. Patient can give only limited her history. She is poor historian. She does not have any complaints at this point. Patient is afebrile. Review of Systems Review of Systems: All systems reviewed & are unremarkable except as noted in HPI & below Physical Exam Constitutional: WD/WN, vitals as above + morbidly obese Eyes: PERRL, conjunctivae normal, anicteric sclerae PERRL; no nystagmus ENMT: external ear and nose normal, oropharynx normal Neck: trachea midline, no thyromegaly normal visual inspection Respiratory: normal respiratory effort, lungs clear to auscultation (decreased in bases) no labored breathing Auscultation: + diminished lung sounds Cardiovascular: RRR, no murmur, no edema Rate/Rhythm: + tachycardic and + irregularly irregular Heart Sounds: normal S1 and normal S2; no murmur Vessels: no JVD Extremities: normal capillary refill and + edema Gastrointestinal (Abdomen): normal bowel sounds, soft, nontender, no hepatosplenomegaly Inspection/Auscultation: + abdomen distended (obesely distended) Musculoskeletal: Head/Neck/Chest: + head abnormal to inspection, normocephalic and head atraumatic Extremities: extremities normal to inspection and + abnormal strength (no movement left arm/hand, left leg/foot) Skin: no rashes, warm and dry Neurologic: + focal motor deficit (left side paralysis) and awake; + does not move all extremities (left side flaccid) Speech / Cognition: + abnormal speech (dysarthria) Motor/Sensory: no pronator drift and no asterixis Cranial Nerves: PERRL and symmetric palate elevation; + tongue not midline (deviated left) Psychiatric: A+Ox3, euthymic affect Orientation: oriented x 3, oriented to person and oriented to place; + not alert and + not oriented to time Lymphatic: no cervical or axillary lymphadenopathy Results & Data Vital Signs (Past 12 Hours) Vital Signs Temp Pulse Pulse Resp BP Pulse Ox 10/24/19 12:19 37.2 C 76 20 123/62 95 10/24/19 07:54 36.9 C 79 18 127/79 98 10/24/19 07:31 73 10/24/19 04:20 37.0 C 85 26 H 126/76 96 PG Care Time/CCT Total # of Minutes Spent Total Time Spent with Patient: Total time spent is greater than 50% in coordination of care (as documented) at patient's floor/unit and/or counseling patient:
[2019-10-24 16:55] LABS: Partial Thromboplastin Ratio 1.4
[2019-10-25] MEDS: PIPERACILLIN/TAZOBACTAM 4.5 GM in DEXTROSE 5% 100 ML IV SCH ×2 (00:14→07:59)
[2019-10-25] MEDS: INSULIN ASPART 100 UNITS/ML 3 ML PEN SC SCH ×4 (00:38→18:34)
[2019-10-25 00:57] LABS: Partial Thromboplastin Ratio 3.5
[2019-10-25 01:00] LABS: Partial Thromboplastin Time 95.1 Seconds (21.0-31.0)
[2019-10-25] MEDS: HEPARIN SODIUM/DEXTROSE 25,000 UNITS/500 ML BAG IV SCH (07:59)
[2019-10-25] MEDS: FAMOTIDINE 20 MG in SYRINGE 3 ML IV SCH ×2 (07:59→20:15)
[2019-10-25] MEDS: KETOROLAC TROMETHAMINE 15 MG/ML VIAL IV PRN (08:02)
[2019-10-25] MEDS: SODIUM CHLORIDE 0.9% 1000ML 1,000 ML IV SCH (08:02)
[2019-10-25 08:19] LABS: Basophils # (auto) 0.03 K/uL (0-0.2); Basophils % (auto) 0.3 %; Eosinophils # (auto) 0.32 K/uL (0-0.5); Eosinophils % (auto) 3.1 %; Hematocrit (blood only) 34.7 % (37-47); Hemoglobin 11.6 g/dL (12.0-16.0); Immature Granulocytes # (auto) 0.03 K/uL (0.00-0.02); Immature Granulocytes % (auto) 0.3 %; Lymphocytes # (auto) 2.11 K/uL (1.2-3.4); Lymphocytes % (auto) 20.2 %; Mean Corpuscular Hemoglobin 29.4 pg (25-34); Mean Corpuscular Hgb Conc 33.4 g/dL (32-36); Mean Corpuscular Volume 87.8 fL (80-100); Mean Platelet Volume 9.8 fL (7.4-10.4); Monocytes # (auto) 0.73 K/uL (0.11-0.59); Neutrophils # (auto) 7.25 K/uL (1.4-6.5); Neutrophils % (auto) 69.1 %; Platelet Count 140 K/uL (130-400); RDW Coefficient of Variation 14.9 % (11.5-14.5); RDW Standard Deviation 47.9 fL (36.4-46.3); Red Blood Count 3.95 M/uL (4.2-5.4); White Blood Count 10.47 K/uL (4.8-10.8)
--- NOTE | 2019-10-25 08:29 | Hospitalist Progress Note ---
Date of Service October 25, 2019 Assessment & Plan (1) Embolic stroke involving right middle cerebral artery: Acute clot in the M1 distribution of MCA MRI brain shows acute ischemic stroke in right basal ganglia and periventricular white matter on right side also shows a significant chronic ischemic changes from vascular disease initially had a response to tPA with some movement in left arm and leg however, later in the day on 10/20 she was exhibiting left side neglect and no movement on left side still with dysarthria, dysphagia started on aspirin, statin via NGT that was placed 10/21 enteral feedings via NGT-now pulled by the pt , dependant on IV fluid. no hemorrhagic conversion on CT head 10/21 however, with worsening clinical status, Dr. Colvin ordered repeat MRI brain MRI 10/22 with progressive ischemic changes on right side, no hemorrhage Poor/guarded prognosis, discussed with family, son Raoul. Prior to stroke her functional status was very poor, bedbound or in wheelchair, did not walk or stand Now with left sided neglect/paresis she would be at higher risk for pressure ulcers, poor quality of life Failed bedside swallow, high aspiration risk, placed HOB at 30 degrees. Continue NSS 60 cc/h. Family meeting today at 4 PM with palliative care to decide if family will proceed with feeding tube placement versus comfort care only. Per recommendation of speech therapy patient is still n.p.o. they recommended stringent oral hygiene and they will follow-up with the patient s/p family meeting today. Appreciate palliative care recs. DNI/DNR (2) Atrial fibrillation with rapid ventricular response: noted to have this in her history was never anticoagulated due to repeated falls and injuries Continue Diltiazem 10mg drip will keep on Diltiazem over the weekend as she cannot take PO Echo with EF 45% Anticoagulated with heparin drip as her CoreSafe feeding tube was pulled out (3) Paroxysmal A-fib: See above, now in persistent Afib with RVR (4) Recurrent urinary tract infection: Previous infections including ESBL E. coli, and enterococcus. Urine culture growing alpha strep not enterococcus Will de-escalate antibiotics from Zosyn to ceftriaxone and monitor for the results. (5) Type 2 diabetes mellitus: Holding glipizide. Placed on Accu-Cheks before meals and at bedtime with NovoLog coverage for scale monitor for hypoglycemia (6) Hyperlipidemia: LDL at goal continue statin therapy for acute stroke (7) Ambulatory dysfunction: Patient was noted to have ambulatory dysfunction prior to acute onset of CVA. certainly will make her recovery more difficult if she survives stroke then would plan to return to SNF for 24 hour care (8) Status post aortic valve replacement: Echocardiogram shows AV in good position Subjective Patient is seen and examined at the bedside. Patient is more alert and awake this morning. Patient pulled NG tube 2 days ago and since then she is receiving only normal saline IV because D5 half-normal saline was causing hypoglycemia. Family supposed to meet today at 4 PM to discuss goals of care with palliative care. They were thinking of comfort care versus feeding tube. Speech therapy reevaluated patient today and recommended n.p.o., continue stringent oral hygiene, speech will follow up for outcome of the family meeting.Patient can give only limited her history. She is poor historian. She does not have any complaints at this point. Patient is afebrile. Review of Systems Review of Systems: All systems reviewed & are unremarkable except as noted in HPI & below Physical Exam Constitutional: WD/WN, vitals as above + morbidly obese Eyes: PERRL, conjunctivae normal, anicteric sclerae PERRL; no nystagmus ENMT: external ear and nose normal, oropharynx normal Neck: trachea midline, no thyromegaly normal visual inspection Respiratory: normal respiratory effort, lungs clear to auscultation (decreased in bases) no labored breathing Auscultation: + diminished lung sounds Cardiovascular: RRR, no murmur, no edema Rate/Rhythm: + tachycardic and + irregularly irregular Heart Sounds: normal S1 and normal S2; no murmur Vessels: no JVD Extremities: normal capillary refill and + edema Gastrointestinal (Abdomen): normal bowel sounds, soft, nontender, no hepatosplenomegaly Inspection/Auscultation: + abdomen distended (obesely distended) Musculoskeletal: Head/Neck/Chest: + head abnormal to inspection, normocephalic and head atraumatic Extremities: extremities normal to inspection and + abnormal strength (no movement left arm/hand, left leg/foot) Skin: no rashes, warm and dry Neurologic: + focal motor deficit (left side paralysis) and awake; + does not move all extremities (left side flaccid) Speech / Cognition: + abnormal speech (dysarthria) Motor/Sensory: no pronator drift and no asterixis Cranial Nerves: PERRL and symmetric palate elevation; + tongue not midline (deviated left) Psychiatric: A+Ox3, euthymic affect Orientation: oriented x 3, oriented to person and oriented to place; + not alert and + not oriented to time Lymphatic: no cervical or axillary lymphadenopathy Results & Data Vital Signs (Past 12 Hours) Vital Signs Temp Pulse Pulse Resp BP Pulse Ox 10/25/19 07:32 36.5 C 79 22 134/76 91 10/25/19 07:30 87 10/25/19 03:58 36.9 C 88 20 135/93 92 10/25/19 00:23 83 10/24/19 23:53 37.2 C 83 20 138/71 93 PG Care Time/CCT Total # of Minutes Spent Total Time Spent with Patient: Total time spent is greater than 50% in coordination of care (as documented) at patient's floor/unit and/or counseling patient:
[2019-10-25 08:42] LABS: Partial Thromboplastin Ratio 2.1
[2019-10-25 08:49] LABS: Partial Thromboplastin Time 56.4 Seconds (21.0-31.0)
[2019-10-25 09:01] LABS: BUN Creatinine Ratio 22.3 (10-20); Calcium 8.8 mg/dl (8.5-10.1); Creatinine Clr Calc Pharmacy 62.6 ml/min; Est GFR (African American) 77.3; Est GFR (Non-African American) 66.7; Potassium 3.1 mmol/L (3.5-5.1)
--- NOTE | 2019-10-25 11:19 | Pharmacy Report ---
Pharmacy Glycemic Short Note 2 - Date of Service October 25, 2019 - Glycemic Short BSG Results (Last 24 hours): 10/24/19 10/24/19 10/24/19 11:23 18:03 20:13 Glucose POC Glucose 107 H 107 H 106 H 10/25/19 10/25/19 10/25/19 00:08 05:43 08:04 Glucose 139 H POC Glucose 100 H 90 OUTPATIENT ANTIDIABETIC REGIMEN: * Glipizide 5mg PO BID * A1c = 6.0% 10/20/19 ASSESSMENT: * BSGs well controlled over last 24 hrs with current orders. * Fasting BSGs in the 90-110's range with no basal insulin on board. * Family to decide on nutritional needs and tube feeds today. PLAN FOR INPATIENT GLYCEMIC CONTROL: * Hold outpatient oral diabetes medications (glipizide) * Basal insulin * none at this time * Bolus insulin * NovoLog per scale Q 6 hrs initially * Goal Range: Low 110 mg/dL - High 140 mg/dL * Correction Factor: 30 mg/dL/unit * Nutritional / Prandial insulin per carb ratio of 1 unit per 10 grams CHO consumed DISCHARGE RECOMMENDATIONS: * to be determined...will likely depend on whether patient begins tube feeds (bolus vs continuous) and BSG pattern while receiving feeds.
--- NOTE | 2019-10-25 12:28 | Palliative Care Progress Note ---
Date of Service October 25, 2019 Assessment & Plan (1) Goals of care, counseling/discussion: -Nursing reports that patient was fully oriented this morning, more awake today. -Speech is to come by and see her again today when she is awake. If patient is able to swallow, even if aspiration risk, family may opt to allow comfort feeding vs. placing PEG tube. -Family meeting this afternoon at 4pm to discuss whether or not we will proceed with PEG tube and discuss goals of care. -Patient was seen by speech therapy and reportedly did not do well at all with swallowing. She overtly aspirated, O2 sats dropped into high 80s. Family was present and saw this occur. I will present this information to family this evening during family meeting. -Update: Family meeting with patient's sons Raoul and Pieter, granddaughters Kerry and Apple, daughter Tatyana and Tatyana's Lauro. After much discussion about feeding tube, they have decided to NOT pursue PEG tube. -Plan will be to transition to comfort measures only tomorrow evening once they have had a chance to talk to other siblings. Per family request, I called patient's daughter Beth, no answer. Will try again tomorrow. -For now, no changes to patient's care, but no escalation in care. -We will likely transition to [facility] including stopping IVF and IV cardizem. Allow comfort sips and chips. If she stabilizes, we could send back to [facility]. Will depend on hospital course. -We will continue to follow closely. Dr. Madison and primary RN updated. 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: (3) Dysphagia: (4) Left hemiplegia: (5) Atrial fibrillation with rapid ventricular response: Subjective Nursing reports that patient was fully oriented this morning, more awake today. Speech is to come by and see her. During my visit this morning, patient was sleeping soundly. She did stir when I said her name, but did not open eyes. will see her later today to do more thorough exam. Review of Systems Review of Systems: Unobtainable due to cognitive status Physical Exam Constitutional: + morbidly obese; no acute distress ENMT: external ear and nose normal, oropharynx normal Respiratory: no labored breathing Auscultation: + diminished lung sounds Cardiovascular: Rate/Rhythm: + tachycardic and + irregularly irregular Extremities: + edema Gastrointestinal (Abdomen): Inspection/Auscultation: + abdomen distended (obesely distended) Neurologic: awake; + does not move all extremities (did see her moving left fingers and toes) Speech / Cognition: + abnormal speech (dysarthria) Results & Data Vital Signs (Past 12 Hours) Vital Signs Temp Pulse Pulse Resp BP Pulse Ox 10/25/19 12:00 36.9 C 77 18 141/76 H 94 10/25/19 07:32 36.5 C 79 22 134/76 91 10/25/19 07:30 87 10/25/19 03:58 36.9 C 88 20 135/93 92 PG Care Time/CCT Prolonged Care Time Prolonged Care Time: Yes Total Prolonged Care Time: 70 Time Spent Midlevel 70 minutes with >50% of the time spent at bedside with patient and family discussing condition, GOC, and end of life issues.
[2019-10-25] MEDS: cefTRIAXone SODIUM 2,000 MG in DEXTROSE 5% 50 ML IV SCH (16:10)
[2019-10-25] MEDS: dilTIAZem HCL 125 MG in DEXTROSE 5% 100 ML IV SCH (17:46)
[2019-10-26] MEDS: INSULIN ASPART 100 UNITS/ML 3 ML PEN SC SCH ×4 (00:08→18:16)
[2019-10-26] MEDS: SODIUM CHLORIDE 0.9% 1000ML 1,000 ML IV SCH ×2 (05:27→17:24)
[2019-10-26 06:20] LABS: Partial Thromboplastin Ratio 1.7
[2019-10-26] MEDS ORDERED: HEPARIN IV BOLUS 3,000 UNITS in SYRINGE 0 ML IV ONE (06:45)
--- NOTE | 2019-10-26 07:21 | Hospitalist Progress Note ---
Date of Service October 26, 2019 Assessment & Plan (1) Embolic stroke involving right middle cerebral artery: Acute clot in the M1 distribution of MCA MRI brain shows acute ischemic stroke in right basal ganglia and periventricular white matter on right side also shows a significant chronic ischemic changes from vascular disease initially had a response to tPA with some movement in left arm and leg however, later in the day on 10/20 she was exhibiting left side neglect and no movement on left side still with dysarthria, dysphagia failed swallow study continue aspirin, statin via NGT that was placed 10/21 enteral feedings via NGT-now pulled by the pt , dependant on IV fluid. no hemorrhagic conversion on CT head 10/21 however, with worsening clinical status, Dr. Clovin ordered repeat MRI brain MRI 10/22 with progressive ischemic changes on right side, no hemorrhage Poor/guarded prognosis, discussed with family, son Raoul. Prior to stroke her functional status was very poor, bedbound or in wheelchair, did not walk or stand Now with left sided neglect/paresis she would be at higher risk for pressure ulcers, poor quality of life Failed bedside swallow, high aspiration risk, placed HOB at 30 degrees. Continue NSS 60 cc/h. Family declined feeding tube. Family is considering comfort care. Appreciate palliative care recs. DNI/DNR (2) Atrial fibrillation with rapid ventricular response: noted to have this in her history was never anticoagulated due to repeated falls and injuries Continue Diltiazem 10mg drip will keep on Diltiazem over the weekend as she cannot take PO Echo with EF 45% Anticoagulated with heparin drip as her CoreSafe feeding tube was pulled out (3) Paroxysmal A-fib: See above, now in persistent Afib with RVR (4) Recurrent urinary tract infection: Previous infections including ESBL E. coli, and enterococcus. Urine culture growing alpha strep not enterococcus Will de-escalate antibiotics from Zosyn to ceftriaxone and monitor for the results. (5) Type 2 diabetes mellitus: Holding glipizide. Placed on Accu-Cheks before meals and at bedtime with NovoLog coverage for scale monitor for hypoglycemia (6) Hyperlipidemia: LDL at goal continue statin therapy for acute stroke (7) Ambulatory dysfunction: Patient was noted to have ambulatory dysfunction prior to acute onset of CVA. certainly will make her recovery more difficult if she survives stroke then would plan to return to SNF for 24 hour care (8) Status post aortic valve replacement: Echocardiogram shows AV in good position Subjective Patient is seen and examined at the bedside. Patient has episodes of being alert and oriented and her lethargic and sleepy.Family decided that they would not proceed with feeding tube and after discussion with other family members they would consider proceeding with comfort care only. Patient's failed speech and swallow study and she is not safe to swallow without aspiration. Patient pulled NG tube several days ago and from that point she is on IV fluids. She does not have any complaints at this point. Patient is afebrile. Review of Systems Review of Systems: All systems reviewed & are unremarkable except as noted in HPI & below Physical Exam Constitutional: WD/WN, vitals as above + morbidly obese Eyes: PERRL, conjunctivae normal, anicteric sclerae PERRL; no nystagmus ENMT: external ear and nose normal, oropharynx normal Neck: trachea midline, no thyromegaly normal visual inspection Respiratory: normal respiratory effort, lungs clear to auscultation (decreased in bases) no labored breathing Auscultation: + diminished lung sounds Cardiovascular: RRR, no murmur, no edema Rate/Rhythm: + tachycardic and + irregularly irregular Heart Sounds: normal S1 and normal S2; no murmur Vessels: no JVD Extremities: normal capillary refill and + edema Gastrointestinal (Abdomen): normal bowel sounds, soft, nontender, no hepatosplenomegaly Inspection/Auscultation: + abdomen distended (obesely distended) Musculoskeletal: Head/Neck/Chest: + head abnormal to inspection, normocephalic and head atraumatic Extremities: extremities normal to inspection and + abnormal strength (no movement left arm/hand, left leg/foot) Skin: no rashes, warm and dry Neurologic: + focal motor deficit (left side paralysis) and awake; + does not move all extremities (left side flaccid) Speech / Cognition: + abnormal speech (dysarthria) Motor/Sensory: no pronator drift and no asterixis Cranial Nerves: PERRL and symmetric palate elevation; + tongue not midline (deviated left) Psychiatric: A+Ox3, euthymic affect Orientation: oriented x 3, oriented to person and oriented to place; + not alert and + not oriented to time Lymphatic: no cervical or axillary lymphadenopathy Results & Data Vital Signs (Past 12 Hours) Vital Signs Temp Pulse Resp BP Pulse Ox 10/26/19 04:41 36.7 C 89 23 140/73 96 10/25/19 23:40 36.5 C 98 H 26 H 156/76 H 95 10/25/19 20:25 36.5 C 93 H 23 168/84 H 94 PG Care Time/CCT Total # of Minutes Spent Total Time Spent with Patient: Total time spent is greater than 50% in coordination of care (as documented) at patient's floor/unit and/or counseling patient:
[2019-10-26] MEDS: HEPARIN SODIUM/DEXTROSE 25,000 UNITS/500 ML BAG IV SCH (09:12)
[2019-10-26] MEDS: FAMOTIDINE 20 MG in SYRINGE 3 ML IV SCH ×2 (09:13→20:42)
[2019-10-26 13:44] LABS: Partial Thromboplastin Time 54.1 Seconds (21.0-31.0)
[2019-10-26] MEDS: cefTRIAXone SODIUM 2,000 MG in DEXTROSE 5% 50 ML IV SCH (17:24)
[2019-10-26] MEDS: dilTIAZem HCL 125 MG in DEXTROSE 5% 100 ML IV SCH (18:14)
[2019-10-27] MEDS: INSULIN ASPART 100 UNITS/ML 3 ML PEN SC SCH ×4 (00:18→16:53)
[2019-10-27 06:40] LABS: Partial Thromboplastin Ratio 1.6; Partial Thromboplastin Time 43.8 Seconds (21.0-31.0)
[2019-10-27] MEDS ORDERED: HEPARIN IV BOLUS 3,000 UNITS in SYRINGE 0 ML IV ONE (07:15)
[2019-10-27] MEDS: SODIUM CHLORIDE 0.9% 1000ML 1,000 ML IV SCH (09:38)
[2019-10-27] MEDS: FAMOTIDINE 20 MG in SYRINGE 3 ML IV SCH ×2 (09:38→21:39)
[2019-10-27] MEDS: HEPARIN SODIUM/DEXTROSE 25,000 UNITS/500 ML BAG IV SCH (09:39)
[2019-10-27] MEDS: KETOROLAC TROMETHAMINE 15 MG/ML VIAL IV PRN (10:54)
--- NOTE | 2019-10-27 11:01 | Palliative Care Progress Note ---
Date of Service October 27, 2019 Assessment & Plan (1) Goals of care, counseling/discussion: -I met with patient in room 209. patient is awake, answering simple orientation questions with nursing and following simple commands. No family at the bedside. -Patent did squeeze my right hand and was able to have a twitch in her left, same with her lower extremities. -patient was discussed to be focusing on comfort measures only as of yesterday, patient remains on IV Heparin and Cardizem infusions. Discussed with Hospitalist and these were both discontinued. -Patient does appear to have diaphragmatic breathing, but denies shortness of breath. -Patient is c/o of right sided headache. Has Torodol IV PRN, which I will DC prior to her discharge. Tylenol on board. -Ultimately, plan is for comfort focus and patient is stable to be discharged to [facility] with an eventual transition to Hospice, agency not chosen by family. -I stopped the Heparin and Diltiazem infusions and ordered Roxanol 5 mg Q4 PRN for air hunger if needed, nothing given to this point. -Would keep indwelling catheter in place for comfort. -Nursing and case management updated who will facilitate all discharge plans. -Discussed out of PCU downgrade in status should she not be discharged today. Should palliative care be needed again prior to her discharge, please contact us. -PPS; 30% 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: (3) Dysphagia: (4) Left hemiplegia: (5) Atrial fibrillation with rapid ventricular response: Subjective Patient is alert when I entered the room. Pt c/o left sided headache, and paced her right hand on her head. Pt denies visual disturbance or dizziness. Pt B/P elevated 160/93. Pt remains on IV Heparin and Diltiazem infusions. Previous discussions for patient to be transitioned to comfort measures and transition to [facility] if stable. See A/P for further POC. Review of Systems Review of Systems: HEENT:+ MORALES, (-) visual disturbance CV: (-) chest pain Resp: (-) SOB unable to answer more direct questions, becomes lethargic Physical Exam Constitutional: + ill appearing, + frail appearing, cooperative and + in distress Respiratory: + labored breathing Auscultation: + diminished lung sounds and + rhonchi Cardiovascular: RRR, no murmur, no edema Rate/Rhythm: + tachycardic Gastrointestinal (Abdomen): normal bowel sounds, soft, nontender, no hepatosplenomegaly Skin: + ecchymosis (right upper arm) Psychiatric: Orientation: alert, oriented to person, oriented to place and cooperative Eye Contact: + fair eye contact Insight: + impaired insight Judgement: + impaired judgement follows simple commands Genitourinary: jeff intact and draining concentrated yellow urine Results & Data Vital Signs (Past 12 Hours) Vital Signs Temp Pulse Resp BP Pulse Ox 10/27/19 08:36 36.8 C 102 H 22 168/79 H 94 10/27/19 04:15 36.4 C L 91 H 22 147/93 H 96 10/26/19 23:50 36.5 C 103 H 20 140/72 95 PG Care Time/CCT Total # of Minutes Spent Total Time Spent with Patient: Total time spent is greater than 50% in c oordination of care (as documented) at patient's floor/unit and/or counseling patient: 45 Time Spent Midlevel Total time spent 45 minutes with > 50% of that time spent assessing patient, providing symptom management and discussing goals of care with IDT.
--- NOTE | 2019-10-27 11:35 | Hospitalist Progress Note ---
Date of Service October 27, 2019 Assessment & Plan (1) Embolic stroke involving right middle cerebral artery: Acute clot in the M1 distribution of MCA MRI brain shows acute ischemic stroke in right basal ganglia and periventricular white matter on right side also shows a significant chronic ischemic changes from vascular disease initially had a response to tPA with some movement in left arm and leg however, later in the day on 10/20 she was exhibiting left side neglect and no movement on left side still with dysarthria, dysphagia failed swallow study Family declined feeding tube. Family decided to proceed with comfort care only and to stop all invasive treatments. Family is in the process of finding hospice agency that will follow up with patient in the senior living. Appreciate palliative care recs. DNI/DNR (2) Atrial fibrillation with rapid ventricular response: Comfort care only. Stopped IV Cardizem and heparin drip as per family's wishes. (3) Paroxysmal A-fib: See above, now in persistent Afib with RVR (4) Recurrent urinary tract infection: Comfort care as per family wishes (5) Type 2 diabetes mellitus: Holding glipizide. Comfort care as per family wishes (6) Hyperlipidemia: Comfort care as per family wishes patient patient is unable to swallow without risk of aspiration. (7) Ambulatory dysfunction: Comfort care only. Patient has very poor prognosis and she is unable to attend physical or Occupational Therapy due to massive stroke. (8) Status post aortic valve replacement: Echocardiogram shows AV in good position (9) Discharge planning issues: Plan to discharge to senior living on hospice. Present on Admission?: Yes Subjective Patient is seen and examined at the bedside. Patient is resting comfortably in the bed. She is more alert and oriented today but continues to have poor prognosis. She is unable to move her left side no she is able to swallow. We had family meeting yesterday and family decided to proceed with comfort care only. Family is aware that patient is at risk of aspirating but they wanted to continue regular comfort feedings. Patient stated that she is hungry. She does not have any complaints at this point. Patient is afebrile. Review of Systems Review of Systems: All systems reviewed & are unremarkable except as noted in HPI & below Physical Exam Constitutional: WD/WN, vitals as above + morbidly obese Eyes: PERRL, conjunctivae normal, anicteric sclerae PERRL; no nystagmus ENMT: external ear and nose normal, oropharynx normal Neck: trachea midline, no thyromegaly normal visual inspection Respiratory: normal respiratory effort, lungs clear to auscultation (decreased in bases) no labored breathing Auscultation: + diminished lung sounds Cardiovascular: RRR, no murmur, no edema Rate/Rhythm: + tachycardic and + irregularly irregular Heart Sounds: normal S1 and normal S2; no murmur Vessels: no JVD Extremities: normal capillary refill and + edema Gastrointestinal (Abdomen): normal bowel sounds, soft, nontender, no hepatosplenomegaly Inspection/Auscultation: + abdomen distended (obesely distended) Musculoskeletal: Head/Neck/Chest: + head abnormal to inspection, normocephalic and head atraumatic Extremities: extremities normal to inspection and + abnormal strength (no movement left arm/hand, left leg/foot) Skin: no rashes, warm and dry Neurologic: + focal motor deficit (left side paralysis) and awake; + does not move all extremities (left side flaccid) Speech / Cognition: + abnormal speech (dysarthria) Motor/Sensory: no pronator drift and no asterixis Cranial Nerves: PERRL and symmetric palate elevation; + tongue not midline (deviated left) Psychiatric: A+Ox3, euthymic affect Orientation: oriented x 3, oriented to person and oriented to place; + not alert and + not oriented to time Lymphatic: no cervical or axillary lymphadenopathy Results & Data Vital Signs (Past 12 Hours) Vital Signs Temp Pulse Resp BP Pulse Ox 10/27/19 11:23 36.4 C L 104 H 22 179/137 H 95 10/27/19 08:36 36.8 C 102 H 22 168/79 H 94 10/27/19 04:15 36.4 C L 91 H 22 147/93 H 96 10/26/19 23:50 36.5 C 103 H 20 140/72 95 PG Care Time/CCT Total # of Minutes Spent Total Time Spent with Patient: Total time spent is greater than 50% in coordination of care (as documented) at patient's floor/unit and/or counseling patient:
[2019-10-27 15:05] VITALS: TEMP 98.1
[2019-10-27] MEDS: MoRPHine SULFATE 5 MG/0.25 ML UDP PO PRN ×2 (16:49→23:04)
[2019-10-27 19:22] VITALS: BP 149/97; O2SAT 95
[2019-10-27] MEDS ORDERED: INSULIN ASPART 100 UNITS/ML 3 ML PEN SC SCH (21:00)
--- NOTE | 2019-10-28 12:57 | Palliative Care Progress Note ---
Date of Service October 28, 2019 Assessment & Plan (1) Goals of care, counseling/discussion: -Patient sleeping. She appears comfortable and family agrees. -Nursing reports that she was awake this morning and said a few words. -Used two doses Roxanol. -Spoke with son Raoul-- plan is for discharge to [facility] with hospice on comfort care. -Stable for discharge from our standpoint. Please contact us with any further palliative care needs. 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: (3) Dysphagia: (4) Left hemiplegia: (5) Atrial fibrillation with rapid ventricular response: Subjective Patient sleeping. She appears comfortable and family agrees. Nursing reports that she was awake this morning and said a few words. Used two doses Roxanol. Spoke with haris Silveira. Multiple family members in room. Review of Systems Review of Systems: Patient sleeping soundly. DId not wake at the request of her family. Physical Exam Constitutional: + morbidly obese; no acute distress ENMT: external ear and nose normal, oropharynx normal Respiratory: no labored breathing Cardiovascular: Rate/Rhythm: + irregularly irregular Extremities: + edema Gastrointestinal (Abdomen): Inspection/Auscultation: + abdomen distended (obesely distended) Supervising Physician Co-Signing Physician Notes Chart reviewed, pt seen and examined, no family at bedside, patient ready for transport to [facility] PE: No acute distress HEENT: EOMI, mild THREE AFFILIATED Resp: unlabored CV: RR Abd: soft, obese Neuro: dysarthria , L hemiparesis, awake and alert Agree with above note, and assessment -patient being transferred to [facility] with hospice care today. Time Spent Midlevel 35 minutes with >50% of the time spent at bedside with patient and family discussing plan of care.
[2019-10-28 13:27] VITALS: PULSE 58
[2019-10-28] MEDS: MoRPHine SULFATE 5 MG/0.25 ML UDP PO PRN (13:48)
--- NOTE | 2019-10-28 17:37 | Discharge Summary ---
Date of Service October 28, 2019 Admission HPI Per Admitting Provider The patient is an 84-year-old female resident of [facility], who was found to be less responsive, and decreased ability to move the left side of her body when checked on by intermediate staff earlier this evening. Her last known well time was 8:00 PM. She was placed into the stroke alert protocol upon arrival to the ED. CT the head showed old ischemia but no acute findings. CTA head and neck showed a right MCA M1 occlusion. Dr. Drew from the emergency department, spoke with Dr. Lundberg from neurology, who recommended patient receive TPA, and TPA was administered completely while in the ED. Patient was noted to have no significant improvement upon immediate completion of the TPA, and also had no ill effects. The patient was then admitted to the ICU for close follow-up. Principal Diagnosis Stroke Discharge Exam Constitutional + lethargic Eyes EOM intact bilaterally; no conjunctival abnormality ENMT external ear and nose normal, oropharynx normal Neck trachea midline, no thyromegaly normal visual inspection Respiratory normal respiratory effort, lungs clear to auscultation no respiratory distress Cardiovascular RRR, no murmur, no edema Gastrointestinal (Abdomen) Inspection/Auscultation: abdomen normal to inspection; abdomen not distended Musculoskeletal no cyanosis or clubbing, extremities motor strength 5/5 Skin no rashes, warm and dry Neurologic moves all extremities; + not awake Psychiatric Orientation: cooperative; + not alert and + not oriented to person Discharge Data Allergies Allergy/AdvReac Type Severity Reaction Status Date / Time No Known Allergies Allergy Unverified 10/20/19 00:15 Consultations 10/20/19 01:31 ED Decision to Admit Stat 10/20/19 02:46 Consult Case Management - Discharge Planning Routine Consult Dress Fitter Routine Consult Neurology Routine 10/20/19 07:49 Consult Infectious Diseases Routine 10/22/19 08:07 Consult Palliative Care Routine Ordered Studies 10/19/19 23:21 CT angio head w con Urgent CT angio neck with con Stat 10/19/19 23:35 CT head/brain wo con Urgent 10/20/19 08:25 MR brain wo con Routine 10/21/19 00:15 CT head/brain wo con Urgent 10/22/19 01:26 MR brain wo/w con Stat Hospital Course (1) Need for comfort care: [facility] for hospice 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: Acute clot in the M1 distribution of MCA MRI brain shows acute ischemic stroke in right basal ganglia and periventricular white matter on right side also shows a significant chronic ischemic changes from vascular disease initially had a response to tPA with some movement in left arm and leg however, later in the day on 10/20 she was exhibiting left side neglect and no movement on left side still with dysarthria, dysphagia failed swallow study Family declined feeding tube. Family decided to proceed with comfort care only and to stop all invasive treatments. Family is in the process of finding hospice agency that will follow up with patient in the intermediate. Appreciate palliative care recs. DNI/DNR (3) Atrial fibrillation with rapid ventricular response: Comfort care only. Stopped IV Cardizem and heparin drip as per family's wishes. (4) Paroxysmal A-fib: See above, now in persistent Afib with RVR (5) Recurrent urinary tract infection: Comfort care as per family wishes (6) Type 2 diabetes mellitus: Holding glipizide. Comfort care as per family wishes (7) Hyperlipidemia: Comfort care as per family wishes patient patient is unable to swallow without risk of aspiration. (8) Ambulatory dysfunction: Comfort care only. Patient has very poor prognosis and she is unable to attend physical or Occupational Therapy due to massive stroke. (9) Status post aortic valve replacement: Echocardiogram shows AV in good position (10) Discharge planning issues: Plan to discharge to intermediate on hospice. Total Time Total Time Spent Total Time Spent (In Minutes): 35 Discharge Plan Discharge Items Patient Disposition: Hospice - Medical Facility Reason For Visit: RT HEMISPHERE CVA W/ LFT WEAKNESS, POST TPA IN ED Discharge Diagnosis: Stroke Activity: Per Instructions section Non-emergency contact: Primary Care Provider Call non-emergency contact if: you have any medication questions, your symptoms worsen, your pain is not controlled, your pain is worsening and your temperature is above 101 Follow-up/Referrals: China Miles [Primary Care Provider] - Diet: Regular Diet Comment: Nothing my mouth except for sips and chips for comfort. Addtl Attending Provider Instructions: Stroke with hemiplegia and dysarthria. Transition to hospice. Pending Studies at Discharge: No Stand-Alone Forms: My [facility] Skilled Items Patient informed of condition?: Yes DNR: Yes Discharge Level of Care: Other Communicable Disease: No Discharge Prognosis: Stable Lines: None Urinary Catheter: Yes Medications and DC Order Prescriptions: New morphine concentrate 100 mg/5 mL (20 mg/mL) Solution 5 mg PO Q4H PRN (Reason: pain) Qty: 15 RF: 0 Continued Moisturizing Cream Cream 1 applic TOPICAL HS RF: 0 Eucerin Cream 1 applic TOPICAL AMPM RF: 0 Cavilon Af 1 applic topical AMHS RF: 0 Calmoseptine 0.44-20.6 % Ointment 1 applic TOPICAL QS RF: 0 Discontinued amoxicillin 500 mg Capsule 2,000 mg PO DIRECTED RF: 0 glipizide 5 mg Tablet 5 mg PO BID RF: 0 metoprolol tartrate 25 mg Tablet 25 mg PO BID RF: 0 losartan 25 mg Tablet 12.5 mg PO DAILY RF: 0 polyethylene glycol 3350 [Miralax] 17 gram/dose Powder 17 g PO DAILY PRN (Reason: Constipation) RF: 0 ondansetron HCl 4 mg Tablet 4 mg PO Q8 PRN (Reason: Nausea And Vomiting) RF: 0 omeprazole 20 mg Capsule,Delayed Release(Dr/Ec) 20 mg PO DAILY RF: 0 Multiple Vitamin, Womens Tablet 1 tab PO DAILY RF: 0 acetaminophen 325 mg Tablet 650 mg PO Q6H MDD 3g/24hr PRN (Reason: Pain) RF: 0 acetaminophen 325 mg Tablet 650 mg PO Q6H PRN (Reason: temp>100) RF: 0 acetaminophen 325 mg Tablet 650 mg PO DAILY RF: 0 Discharge Orders: Discharge Order (Routine); Ordered 10/28/19 Ordered By: Harrison Sandoval Admission Data Admit Date/Time: 10/20/19 01:48 Attending Provider: Harrison Sandoval Admit Provider: Rolando Hdez Primary Care Provider: China Miles Other Providers: China Miles ; Naveed Thomas ; Jamir Landers III ; Aba Pittman ; Valeria Herr ; Harrison Sandoval Other Interventions: Discharge Summary Assessment (RN) Last Done: 10/28/19 13:25 DC Date/Time DO NOT enter until pt leaves facility: 10/28/19 14:13
== END 2019-10-28 14:13 | disposition hospice, inpatient (51) | DRG 62 ==
LOC: ED 23:31 → 1E 10-20 01:48 → SUATTDRO 10-20 01:48 → 1E 10-20 02:05 → 2E 10-21 19:03 → 2W 10-27 17:30